=== PATIENT | female | born 1930 | race Caucasian/White ===

== ENCOUNTER 2016-12-09 07:36 | Inpatient (IN) | payer BC, OTHER ==
[~2016-12-09] VITALS: Ht 157.5 cm; Wt 55.5 kg
[~2016-12-09 07:36] MED LIST: ALBU1AER9 INH; ASPI81TA28 PO; CHOL100010 PO; MELA1TAB5 PO
[2016-12-09] MEDS ORDERED: ALBUT/IPRATROP 3MG/0.5MG NEB 3 ML VIAL INH ONE (08:00)
[2016-12-09 08:04] LABS: BASO % 0.5 %; BASO ABS # 0.05 K/uL (0-0.2); COMPLETE YES; EOS % 0.4 %; HEMATOCRIT 43.1 % (37-47); IG% 0.4 %; LYMPH % 17.5 %; LYMPH ABS # 1.61 K/uL (1.2-3.4); MEAN CELL VOLUME 83.7 fL (80-100); MEAN CORPUSCULAR HEMOGLOBIN 28.7 pg (25-34); MEAN CORPUSCULAR HGB CONC 34.3 g/dl (32-36); MEAN PLATELET VOLUME 9.5 fL (7.4-10.4); MONO % 12.5 %; NEUT % 68.7 %; PLATELET COUNT 443 K/uL (130-400); RED BLOOD COUNT 5.15 M/uL (4.2-5.4); WHITE BLOOD COUNT 9.19 K/uL (4.8-10.8)
[2016-12-09 08:12] VITALS: PULSE 93; O2SAT 94
[2016-12-09 08:25] LABS: ALT/SGPT 11 U/L (12-78); BLOOD UREA NITROGEN 6 mg/dl (7-18); BUN/CREATININE RATIO 13.2 (10-20); CALCIUM 9.6 mg/dl (8.5-10.1); CARBON DIOXIDE 29 mmol/L (21-32); CHLORIDE 93 mmol/L (98-107); CREATININE 0.44 mg/dl (0.60-1.20); GLUCOSE 102 mg/dl (70-99); POTASSIUM 4.3 mmol/L (3.5-5.1); SODIUM 131 mmol/L (136-145)
--- NOTE | 2016-12-09 08:25 | DIAGNOSTIC IMAGING REPORT ---
CHEST ONE VIEW PORTABLE CLINICAL HISTORY: Shortness of breath. Flulike symptoms. COMPARISON STUDY: 10/19/2016 FINDINGS: The heart is normal in size. There is evidence of pulmonary emphysema. There is increased density in the right suprahilar region. This may relate to overlying instrumentation. A follow-up PA and lateral study is recommended. There is mild elevation interstitium. There are no pleural effusions.[ IMPRESSION: 1. Increased density in the right suprahilar region, possibly artifactual. A repeat PA and lateral study is recommended 2. Mild elevation of the interstitium. No evidence of lobar consolidation. Electronically signed by: Nain Del Valle M.D. 12/09/2016 8:23 AM Dictated Date/Time: 12/09/2016 8:21 AM
[2016-12-09 08:30] LABS: ALB/GLOB RATIO 0.8 (0.9-2); ALKALINE PHOSPHATASE 93 U/L (45-117); AST/SGOT 15 U/L (15-37); CKMB/CK RATIO 4.8 (0-3.0)
[2016-12-09] MEDS ORDERED: METHYLPREDNISOLONE 125 MG VIAL IV STA (08:35)
--- NOTE | 2016-12-09 09:15 | DIAGNOSTIC IMAGING REPORT ---
TWO VIEW CHEST CLINICAL HISTORY: Dyspnea. FINDINGS: PA and lateral chest radiographs are compared to study performed earlier the same day 12/09/2016 and correlated with chest CT dated 10/22/2016. The heart is top normal for projection and there is atherosclerotic calcification of the thoracic aorta. The pulmonary vasculature is noncongested. Chronic interstitial thickening is similar to previous. No airspace consolidation, pleural effusion, or pneumothorax is seen. The skeletal structures are osteopenic. Advanced degenerative change and scoliosis are noted in the thoracic spine. Arthritic changes are seen in the shoulders. Calcified joint bodies are noted on the left. IMPRESSION: No acute cardiopulmonary abnormality is seen. The right suprahilar density questioned on today's earlier examination is no longer identified and was likely artifactual. Electronically signed by: Cordell Sofia M.D. 12/09/2016 9:13 AM Dictated Date/Time: 12/09/2016 9:10 AM
[2016-12-09 09:52] LABS: INFLUENZA A PCR Neg for Influ A (NEG); INFLUENZA B PCR Neg for Influ B (NEG)
--- NOTE | 2016-12-09 11:01 | EMERGENCY ROOM VISIT NOTE ---
History Report prepared by Yevgeniy: Yoli Quach Under the Supervision of: Dr. Matheus Hung M.D. First contact with patient: 07:42 Chief Complaint: SHORTNESS OF BREATH Stated Complaint: SHORTNESS OF BREATH/ FLU LIKE SX History of Present Illness The patient is an 86 year old female who presents to the Emergency Room with complaints of intermittent shortness of breath since yesterday. Currently, while resting, the patient is in minimal discomfort, but her symptoms worsen with attempts of exertion. Patient notes that she has had mild flu like symptoms such as a nonproductive cough and rhinorrhea over the past few days, but she did not develop the shortness of breath with exertion until yesterday. When developing the shortness of breath, patient denies experiencing chest pain , and she has not noticed any increased swelling to her extremities. She does have a history of asthma but she has not yet attempted to use her inhalers at home. The patient also notes about 4-5 movements of diarrhea within the past day as well, but she denies abdominal pain, nausea or vomiting, and she has not recently been on any antibiotics. She also denies fevers, chills, sore throat, urinary symptoms or other acute symptoms. Source of History: patient, family Onset: yesterday Position: chest Symptom Intensity: minimal Quality: other (shortness of breath) Timing: intermittent Modifying Factors (Worsening): exertion Modifying Factors (Relieving): rest Associated Symptoms: + cough, + diarrhea, No abdominal pain, No chest pain, No chills, No fevers, No nausea, No urinary symptoms, No vomiting Note: Patient denies swelling to her legs. Review of Systems See HPI for pertinent positives & negatives. A total of 10 systems reviewed and were otherwise negative. Past Medical & Surgical Medical Problems: (1) Asthma, Unspecified (2) Bronchitis (3) Pneumonia Family History No significant family history Social History Smoking Status: Never Smoker Alcohol Use: none Drug Use: none Housing Status: lives alone Occupation Status: retired Current/Historical Medications Scheduled Aspirin (Aspirin Ec), 81 MG PO DAILY Cholecalciferol (Vitamin D), 1,000 INTER.UNIT PO QAM Melatonin (Kp Melatonin), 3 MG PO HS Scheduled PRN Albuterol (Proair Hfa), 2 PUFFS INH Q4-6H PRN for SOB/Wheezing Allergies Coded Allergies: Trazodone (Verified Adverse Reaction, Intermediate, INTOLERANT, 12/09/16) Physical Exam Vital Signs Date Time Temp Pulse Resp B/P Pulse Ox O2 Delivery O2 Flow Rate FiO2 12/09/16 10:44 108 12/09/16 10:40 96 Nasal Cannula 3.0 12/09/16 10:39 104 22 128/68 96 Nasal Cannula 3.0 12/09/16 09:23 101 24 140/80 100 Nebulizer 12/09/16 08:38 90 24 137/77 95 Nebulizer 12/09/16 08:17 87 26 175/67 100 Nebulizer 12/09/16 08:12 93 32 94 Room Air 12/09/16 07:57 95 Room Air 12/09/16 07:54 37.1 94 28 160/81 95 Room Air 12/09/16 07:54 95 Room Air 12/09/16 07:45 92 12/09/16 07:42 95 Room Air Physical Exam GENERAL: Patient appears to be short of breath. HEAD: Normocephalic atraumatic EYES: Ocular movements intact pupils equal and react to light OROPHARYNX mucous membranes are moist no exudates present no erythema or edema present NECK: Supple no nuchal rigidity CHEST: Good equal expansion LUNGS: Distant lung sounds. CARDIAC: Normal S1 and S2 ABDOMEN: Soft nontender no guarding BACK: No CVA tenderness EXTREMITIES: No pain upon palpation normal muscle strength in all groups no clubbing cyanosis or edema NEURO: Patient is following commands is answering questions appropriately. Alert and oriented x3 Cranial Nerves 2-12 grossly intact Medical Decision & Procedures ER Provider Diagnostic Interpretation: X-ray results as stated below per interpretation by me and the radiologist: CHEST ONE VIEW PORTABLE CLINICAL HISTORY: Shortness of breath. Flulike symptoms. COMPARISON STUDY: 10/19/2016 FINDINGS: The heart is normal in size. There is evidence of pulmonary emphysema. There is increased density in the right suprahilar region. This may relate to overlying instrumentation. A follow-up PA and lateral study is recommended. There is mild elevation interstitium. There are no pleural effusions.[ IMPRESSION: 1. Increased density in the right suprahilar region, possibly artifactual. A repeat PA and lateral study is recommended 2. Mild elevation of the interstitium. No evidence of lobar consolidation. Electronically signed by: Nain Del Valle M.D. 12/09/2016 8:23 AM Dictated Date/Time: 12/09/2016 8:21 AM TWO VIEW CHEST CLINICAL HISTORY: Dyspnea. FINDINGS: PA and lateral chest radiographs are compared to study performed earlier the same day 12/09/2016 and correlated with chest CT dated 10/22/2016. The heart is top normal for projection and there is atherosclerotic calcification of the thoracic aorta. The pulmonary vasculature is noncongested. Chronic interstitial thickening is similar to previous. No airspace consolidation, pleural effusion, or pneumothorax is seen. The skeletal structures are osteopenic. Advanced degenerative change and scoliosis are noted in the thoracic spine. Arthritic changes are seen in the shoulders. Calcified joint bodies are noted on the left. IMPRESSION: No acute cardiopulmonary abnormality is seen. The right suprahilar density questioned on today's earlier examination is no longer identified and was likely artifactual. Electronically signed by: Cordell Soifa M.D. 12/09/2016 9:13 AM Dictated Date/Time: 12/09/2016 9:10 AM Laboratory Results 12/09/16 07:50 Red Blood Count 5.15, Mean Corpuscular Volume 83.7, Mean Corpuscular Hemoglobin 28.7, Mean Corpuscular Hemoglobin Concent 34.3, Mean Platelet Volume 9.5, Neutrophils (%) (Auto) 68.7, Lymphocytes (%) (Auto) 17.5, Monocytes (%) (Auto) 12.5, Eosinophils (%) (Auto) 0.4, Basophils (%) (Auto) 0.5, Neutrophils # (Auto ) 6.30, Lymphocytes # (Auto) 1.61, Monocytes # (Auto) 1.15, Eosinophils # (Auto ) 0.04, Basophils # (Auto) 0.05 12/09/16 07:50 Test 12/09/16 07:50 12/09/16 07:58 White Blood Count 9.19 K/uL (4.8-10.8) Red Blood Count 5.15 M/uL (4.2-5.4) Hemoglobin 14.8 g/dL (12.0-16.0) Hematocrit 43.1 % (37-47) Mean Corpuscular Volume 83.7 fL (80-100) Mean Corpuscular Hemoglobin 28.7 pg (25-34) Mean Corpuscular Hemoglobin Concent 34.3 g/dl (32-36) Platelet Count 443 K/uL (130-400) Mean Platelet Volume 9.5 fL (7.4-10.4) Neutrophils (%) (Auto) 68.7 % Lymphocytes (%) (Auto) 17.5 % Monocytes (%) (Auto) 12.5 % Eosinophils (%) (Auto) 0.4 % Basophils (%) (Auto) 0.5 % Neutrophils # (Auto) 6.30 K/uL (1.4-6.5) Lymphocytes # (Auto) 1.61 K/uL (1.2-3.4) Monocytes # (Auto) 1.15 K/uL (0.11-0.59) Eosinophils # (Auto) 0.04 K/uL (0-0.5) Basophils # (Auto) 0.05 K/uL (0-0.2) RDW Standard Deviation 40.8 fL (36.4-46.3) RDW Coefficient of Variation 13.4 % (11.5-14.5) Immature Granulocyte % (Auto) 0.4 % Immature Granulocyte # (Auto) 0.04 K/uL (0.00-0.02) Anion Gap 9.0 mmol/L (3-11) Est Creatinine Clear Calc Drug Dose 71.3 ml/min Estimated GFR () 105.2 Estimated GFR (Non- 90.8 BUN/Creatinine Ratio 13.2 (10-20) Calcium Level 9.6 mg/dl (8.5-10.1) Total Bilirubin 0.3 mg/dl (0.2-1) Aspartate Amino Transf (AST/SGOT) 15 U/L (15-37) Alanine Aminotransferase (ALT/SGPT) 11 U/L (12-78) Alkaline Phosphatase 93 U/L (45-117) Total Creatine Kinase 27 U/L (26-192) Creatine Kinase MB 1.3 ng/ml (0.5-3.6) Creatine Kinase MB Ratio 4.8 (0-3.0) Troponin I < 0.015 ng/ml (0-0.045) Pro-B-Type Natriuretic Peptide 275 pg/ml (0-1800) Total Protein 6.8 gm/dl (6.4-8.2) Albumin 3.1 gm/dl (3.4-5.0) Globulin 3.7 gm/dl (2.5-4.0) Albumin/Globulin Ratio 0.8 (0.9-2) Influenza Type A (RT-PCR) Neg for Influ A (NEG) Influenza Type B (RT-PCR) Neg for Influ B (NEG) Labs reviewed by ED physician. Medications Administered Medications (Trade) Dose Ordered Sig/Karla Route Start Time Stop Time Status Last Admin Dose Admin Albuterol/ Ipratropium (Duoneb) 12 ml ONE ONCE INH 12/09/16 08:00 12/09/16 08:01 DC 12/09/16 08:12 12 ML Methylprednisolone Sodium Succinate (Solu-Medrol IV) 60 mg NOW STAT IV 12/09/16 08:35 12/09/16 08:37 DC 12/09/16 08:52 60 MG ECG Indication: SOB/dyspnea Rate (beats per minute): 93 Rhythm: normal sinus Findings: no acute ischemic change, no ectopy ED Course 0740: Past medical records reviewed. The patient was evaluated in room B2. A complete history and physical examination was performed. 0800: DuoNeb 12 ml INH was ordered. 0835: Solu-Medrol 60 mg IV was ordered. 0950: I reevaluate the patient at this time and updated her on the results of her radiology reports and lab tests. The hospitalist will be contacted. 1010: After discussion with Dr. Bee, the patient will continue to be evaluated by the [facility] hospitalist for further management. She verbalized her understanding and agreement with this. Medical Decision Etiologies such as infections, reactive airway disease, pneumonia, pneumothorax , COPD, CHF, cardiac ischemia, pulmonary embolism, musculoskeletal, gastrointestinal, as well as others were entertained. This is an 86-year-old female who presents emergency department complaining of shortness of breath. The patient's respiratory rate is approximately 30. She does have some wheezing present for this reason she was given an hour-long breathing treatment along with Solu-Medrol. Repeat examination revealed that the patient was hypoxic running 87% on room air. She does not have any evidence of pneumonia and does not have an elevation in her white blood count. Her influenza swab is negative. I believe that the patient should be admitted to the hospital and discussed the case with the hospitalist. Patient family were in agreement with the treatment plan. Consults Time Called: [phone] Consulting Physician: Dr. Bee - [facility] Returned Call: [phone] Discussed the patient's case. She will continue to be evaluated by the [facility] hospitalist for further management. Impression Primary Impression: Hypoxia Additional Impression: URI (upper respiratory infection) Scribe Attestation The scribe's documentation has been prepared under my direction and personally reviewed by me in its entirety. I confirm that the note above accurately reflects all work, treatment, procedures, and medical decision making performed by me. Departure Information Dispostion Being Evaluated By Hospitalist ([facility]) Referrals Chin Wells M.D. (PCP) Problem Qualifiers
[2016-12-09] MEDS ORDERED: ONDANSETRON INJ 2 MG/ML 2 ML VIAL IV PRN (11:30)
[2016-12-09] MEDS ORDERED: POLYETHYLENE (MIRALAX) 17 GM PACK PO PRN (11:30)
[2016-12-09] MEDS ORDERED: ACETAMINOPHEN 325 MG TAB PO PRN (11:30)
[2016-12-09] MEDS ORDERED: ALUMINUM/MAGNESIUM/SIMETH (MAALOX MAX) 30 ML UDC PO PRN (11:30)
[2016-12-09 13:30] VITALS: BP 104/61; PULSE 102; TEMP 36.5; O2SAT 95
[2016-12-09 14:38] VITALS: Ht 157.5 cm; Wt 55.5 kg
[2016-12-09 14:46] LABS: PARTIAL THROMBOPLASTIN RATIO 1.1; PROTHROMBIN TIME (PATIENT) 10.5 SECONDS (9.0-12.0)
[2016-12-09 15:33] VITALS: BP 124/68; PULSE 106; TEMP 36.6; O2SAT 95
[2016-12-09] MEDS: ALBUT/IPRATROP 3MG/0.5MG NEB 3 ML VIAL INH SCH ×2 (15:59→19:30)
[2016-12-09 16:00] VITALS: PULSE 106; O2SAT 97; O2SAT 98
[2016-12-09] MEDS: METHYLPREDNISOLONE IV 20 MG in SYRINGE 0 ML IV SCH ×2 (16:11→23:52)
[2016-12-09 19:30] VITALS: PULSE 100; O2SAT 98
[2016-12-09] MEDS: HEPARIN SOD 5000 UNIT/0.5 ML CARP SQ SCH (21:40)
[2016-12-09 22:57] VITALS: BP 126/62; PULSE 105; TEMP 36.7; O2SAT 91
[2016-12-10] VITALS (7 sets, daily range): BP systolic 133–155; BP diastolic 72–73; PULSE 82–105; TEMP 36.7–36.8; O2SAT 92–98
[2016-12-10] MEDS: ZOLPIDEM TARTRATE 5 MG TAB PO PRN (00:40)
--- NOTE | 2016-12-10 02:36 | History and Physical ---
History & Physical Date & Time of Service: Dec 09, 2016 at 16:33 Chief Complaint: Dyspnea, Hypoxia Primary Care Physician: Chin Wells M.D. History of Present Illness Source: patient, family This is a 86 yo F non-smoker w/ hx of Asthma on prn Albuterol inhaler at home p/ w with 2 day Hx of progressive SOB. SOB occurred from rest ans was particularly worse at night. No alleviating factors. Patient did not attempt to use inhaler. Pt reports difficulty sleeping do to symptoms and decided to contact her son this morning around 7am to take her to the hospital. Additionally, patient reports 5 day hx of cold symptoms including rhinnoreah, nasal congestion addition to fatigue. Pt also reports soft stool on Dec.07 and which has since resolved. She denies fevers, chills, bodyache,reports non- productive cough, but states this is chronic. Pt presented previous for SOB to the ED on 10/21. CXR at the time was consistent with chronic emphysematous change and a CT showing Bronchiectasis with parenchymal lung scarring. Patient's Last Echo was in May 2015 showing EF 50-55% according ot note from her PCP. Dr. Mcclain. In the current ED stay, per ED note, the patient was wheezing and experiences a drop in her initially normal O2 saturation to 87%. Pt was given duonebs, IV solumedrol. repeat CXR showed no acute pulmonary abnormalities. Pt placed on NC , 3L. White Ct, H/H was normal, Flub swab was neg. SOB improved while in ED. Past Medical/Surgical History Medical Problems: (1) Asthma, Unspecified Status: Chronic (2) Bronchitis Status: Chronic (3) Pneumonia Status: Resolved Family History No significant family history Social History Smoking Status: Never Smoker Drug Use: none Housing status: lives alone Occupational Status: retired Immunizations History of Influenza Vaccine: Yes Influenza Vaccine Date: Sep 29, 2010 History of Tetanus Vaccine?: Yes History of Pneumococcal: Yes History of Hepatitis B Vaccine: No Multi-Drug Resistant Organisms History of MDRO: No Allergies Coded Allergies: Trazodone (Verified Adverse Reaction, Intermediate, INTOLERANT, 12/09/16) Home Medications Scheduled Aspirin (Aspirin Ec), 81 MG PO DAILY Cholecalciferol (Vitamin D), 1,000 INTER.UNIT PO QAM Melatonin (Kp Melatonin), 3 MG PO HS Scheduled PRN Albuterol (Proair Hfa), 2 PUFFS INH Q4-6H PRN for SOB/Wheezing Review of Systems Constitutional: + fatigue, No chills, No fever Respiratory: + cough (non-productive), No shortness of breath, No sputum Cardiovascular: No chest pain, No palpitations Abdomen: No nausea, No pain, No vomiting Integumentary: No itch, No rash Allergic / Immunologic: + problem reported (asthma) Physical Exam Vital Signs Date Time Temp Pulse Resp B/P Pulse Ox O2 Delivery O2 Flow Rate FiO2 12/09/16 15:33 36.6 106 16 124/68 95 Room Air 12/09/16 14:38 Nasal Cannula 2.0 12/09/16 13:30 36.5 102 24 104/61 95 Nasal Cannula 2.0 12/09/16 13:29 110 31 154/93 96 12/09/16 12:48 99 12/09/16 12:11 104 29 148/70 99 Nasal Cannula 3.0 12/09/16 10:44 108 12/09/16 10:40 96 Nasal Cannula 3.0 12/09/16 10:39 104 22 128/68 96 Nasal Cannula 3.0 12/09/16 09:23 101 24 140/80 100 Nebulizer 12/09/16 08:38 90 24 137/77 95 Nebulizer 12/09/16 08:17 87 26 175/67 100 Nebulizer 12/09/16 08:12 93 32 94 Room Air 12/09/16 07:57 95 Room Air 12/09/16 07:54 37.1 94 28 160/81 95 Room Air 12/09/16 07:54 95 Room Air 12/09/16 07:45 92 12/09/16 07:42 95 Room Air General Appearance: WD/WN, no apparent distress Head: normocephalic, atraumatic Eyes: normal inspection, PERRL, EOMI Neck: supple, no adenopathy Respiratory/Chest: lungs clear, normal breath sounds, no respiratory distress Cardiovascular: regular rate, rhythm, no JVD, no murmur Abdomen/GI: normal bowel sounds, non tender, soft, no organomegaly Extremities/Musculoskelatal: no calf tenderness, no pedal edema Neurologic/Psych: alert, normal mood/affect Skin: normal color, warm/dry Diagnostics Laboratory Results Results Past 24 Hours Test 12/09/16 07:50 12/09/16 07:58 12/09/16 08:50 Range/Units White Blood Count 9.19 4.8-10.8 K/uL Red Blood Count 5.15 4.2-5.4 M/uL Hemoglobin 14.8 12.0-16.0 g/dL Hematocrit 43.1 37-47 % Mean Corpuscular Volume 83.7 80-100 fL Mean Corpuscular Hemoglobin 28.7 25-34 pg Mean Corpuscular Hemoglobin Concent 34.3 32-36 g/dl Platelet Count 443 130-400 K/uL Mean Platelet Volume 9.5 7.4-10.4 fL Neutrophils (%) (Auto) 68.7 % Lymphocytes (%) (Auto) 17.5 % Monocytes (%) (Auto) 12.5 % Eosinophils (%) (Auto) 0.4 % Basophils (%) (Auto) 0.5 % Neutrophils # (Auto) 6.30 1.4-6.5 K/uL Lymphocytes # (Auto) 1.61 1.2-3.4 K/uL Monocytes # (Auto) 1.15 0.11-0.59 K/uL Eosinophils # (Auto) 0.04 0-0.5 K/uL Basophils # (Auto) 0.05 0-0.2 K/uL RDW Standard Deviation 40.8 36.4-46.3 fL RDW Coefficient of Variation 13.4 11.5-14.5 % Immature Granulocyte % (Auto) 0.4 % Immature Granulocyte # (Auto) 0.04 0.00-0.02 K/uL Sodium Level 131 136-145 mmol/L Potassium Level 4.3 3.5-5.1 mmol/L Chloride Level 93 98-107 mmol/L Carbon Dioxide Level 29 21-32 mmol/L Anion Gap 9.0 3-11 mmol/L Blood Urea Nitrogen 6 7-18 mg/dl Creatinine 0.44 0.60-1.20 mg/dl Est Creatinine Clear Calc Drug Dose 71.3 ml/min Estimated GFR () 105.2 Estimated GFR (Non- 90.8 BUN/Creatinine Ratio 13.2 10-20 Random Glucose 102 70-99 mg/dl Calcium Level 9.6 8.5-10.1 mg/dl Total Bilirubin 0.3 0.2-1 mg/dl Aspartate Amino Transf (AST/SGOT) 15 15-37 U/L Alanine Aminotransferase (ALT/SGPT) 11 12-78 U/L Alkaline Phosphatase 93 45-117 U/L Total Creatine Kinase 27 26-192 U/L Creatine Kinase MB 1.3 0.5-3.6 ng/ml Creatine Kinase MB Ratio 4.8 0-3.0 Troponin I < 0.015 0-0.045 ng/ml Pro-B-Type Natriuretic Peptide 275 0-1800 pg/ml Total Protein 6.8 6.4-8.2 gm/dl Albumin 3.1 3.4-5.0 gm/dl Globulin 3.7 2.5-4.0 gm/dl Albumin/Globulin Ratio 0.8 0.9-2 Influenza Type A (RT-PCR) Neg for Influ A NEG Influenza Type B (RT-PCR) Neg for Influ B NEG Prothrombin Time 10.5 9.0-12.0 SECONDS Prothromb Time International Ratio 1.0 0.9-1.1 Activated Partial Thromboplast Time 28.7 21.0-31.0 SECONDS Partial Thromboplastin Ratio 1.1 Diagnostic Radiology CHEST ONE VIEW PORTABLE CLINICAL HISTORY: Shortness of breath. Flulike symptoms. COMPARISON STUDY: 10/19/2016 FINDINGS: The heart is normal in size. There is evidence of pulmonary emphysema. There is increased density in the right suprahilar region. This may relate to overlying instrumentation. A follow-up PA and lateral study is recommended. There is mild elevation interstitium. There are no pleural effusions.[ IMPRESSION: 1. Increased density in the right suprahilar region, possibly artifactual. A repeat PA and lateral study is recommended 2. Mild elevation of the interstitium. No evidence of lobar consolidation TWO VIEW CHEST CLINICAL HISTORY: Dyspnea. FINDINGS: PA and lateral chest radiographs are compared to study performed earlier the same day 12/09/2016 and correlated with chest CT dated 10/22/2016. The heart is top normal for projection and there is atherosclerotic calcification of the thoracic aorta. The pulmonary vasculature is noncongested. Chronic interstitial thickening is similar to previous. No airspace consolidation, pleural effusion, or pneumothorax is seen. The skeletal structures are osteopenic. Advanced degenerative change and scoliosis are noted in the thoracic spine. Arthritic changes are seen in the shoulders. Calcified joint bodies are noted on the left. IMPRESSION: No acute cardiopulmonary abnormality is seen. The right suprahilar density questioned on today's earlier examination is no longer identified and was likely artifactual. EKG Normal Sinus Rhythm, L. Ant. Fascicular block Impression Assessment and Plan 86 yo F w/ Hx of Asthma p/w hypoxic resp failure Acute Hypoxic Resp Failure: - likely due to Asthma exacerbation possibly secondary to aspiration/ bronchiectasis exacerbation. -CHF origin unlikely considering previous Echo May 2015, showing normal systolic fxn, EF 50-55% -no evidence of aspiration pneumonitis on CXR -O2 saturation improved with O2 -Start IV Solu-medrol 20 mg q8 -Duonebs PRN -Aspiration precautions, Speech therapy Consulted for swallowing evaluation -consider adding abx. Hx of Atrial Flutter -EKG shows normal sinus rhythm DVT Prophylaxis: -Heparin 5000u q 8 -SCD's Hyponatremia: pt asymptomatic -131 -Continue to monitor -F/U repeat PRP Diet: Regular Diet Code Status: Full Resuscitation Level of Care Med/Surg Advanced Directives Existing Advance Directive: No Existing Living Will: No Existing Power of Ship Keeper: Yes Resuscitation Status FULL RESUSCITATION VTE Prophylaxis VTE Risk Assessment Done? Y/N: Yes Risk Level: Low Given or contraindicated: Unfractionated heparin SQ, SCD's Resident Tracking Resident Involvement: Resident Care Provided Care Provided: Adult Hospital Medicine Reviewed: Pt Seen/Exam by Me History 86 y/o F with h/o asthma here with shortness of breath for 2 days. Noted to be hypoxic in ED Constitutional: denies: fever Respiratory: positive: short of breath Cardiovascular: denies chest pain Gastrointestinal/Abdominal: negative: abdominal pain Genitourinary: negative dysuria Musculoskeletal: negative: back pain Neurological/Psych: negative: anxiety General Appearance: no apparent distress Respiratory: no respiratory distress, decreased breath sounds Cardiovascular: regular rate, rhythm Gastrointestinal: normal bowel sounds, non tender, soft Neurologic/Psychiatric: alert, oriented x 3 Skin Characteristics: warm/dry Assessment/Plan I have reviewed the medical record and performed a history and physical examination of this patient today. I have discussed the case with Dr. Azevedo. The above note reflects my findings, conclusions, and recommendations.
[2016-12-10 05:49] LABS: HEMATOCRIT 40.9 % (37-47); MEAN CELL VOLUME 83.5 fL (80-100); MEAN CORPUSCULAR HEMOGLOBIN 29.2 pg (25-34); MEAN PLATELET VOLUME 9.5 fL (7.4-10.4); PLATELET COUNT 446 K/uL (130-400); WHITE BLOOD COUNT 8.57 K/uL (4.8-10.8)
[2016-12-10] MEDS: HEPARIN SOD 5000 UNIT/0.5 ML CARP SQ SCH ×3 (06:00→20:33)
[2016-12-10 06:11] LABS: BUN/CREATININE RATIO 22.7 (10-20); CALCIUM 9.4 mg/dl (8.5-10.1); CREATININE 0.5 mg/dl (0.60-1.20); POTASSIUM 4.4 mmol/L (3.5-5.1)
[2016-12-10] MEDS: ALBUT/IPRATROP 3MG/0.5MG NEB 3 ML VIAL INH SCH ×4 (07:09→20:23)
[2016-12-10] MEDS: ASPIRIN 81 MG ECTAB PO SCH (08:38)
[2016-12-10] MEDS: CHOLECALCIFEROL 1000 INTER.UNIT TAB PO SCH (08:38)
[2016-12-10] MEDS: METHYLPREDNISOLONE IV 20 MG in SYRINGE 0 ML IV SCH ×3 (08:38→23:41)
[2016-12-10] MEDS ORDERED: NURSING DECISION MEDICATION ORDER SCH (09:00)
[2016-12-10] MEDS ORDERED: SODIUM CHLORIDE 0.65% NA SOLN 45 ML (OCEAN) PRN (09:45)
[2016-12-10] MEDS ORDERED: COUGH DROP (SUGAR FREE) LOZ 24 LOZ/1 BOX PO PRN (09:45)
--- NOTE | 2016-12-10 10:25 | Family Medicine Progress Note ---
Progress Note Date of Service Dec 10, 2016. Subjective Pt evaluation today including: conversation w/ patient, conversation w/ family , physical exam, chart review, lab review, review of studies, review of inpatient medication list Pain: denies pain PO Intake: adequate Voiding: no voiding problems Pt reports her SOB has significantly and she is at her baseline. Pt states she had difficulty sleeping last night, and got ambien which helped. She continues to report non-productive cough. denies CP. Pt concerned she cannot go home by herself immediately and was interested in speaking with case management about her options. Constitutional: No chills, No fever Respiratory: + cough (non-productive), No shortness of breath Cardiovascular: No chest pain, No palpitations Abdomen: No constipation, No diarrhea, No nausea, No pain, No vomiting Medications Current Inpatient Medications Medications (Trade) Dose Ordered Sig/Karla Route Start Time Stop Time Status Last Admin Dose Admin Heparin Sodium (Porcine) (Heparin Sq 5000 Unit/0.5ml) 5,000 unit Q8H SQ 12/09/16 22:00 01/08/17 21:59 Acetaminophen (Tylenol Tab) 650 mg Q4H PRN PO 12/09/16 11:30 01/08/17 11:29 12/09/16 16:11 650 MG Al Hydrox/Mg Hydrox/Simethicone (Maalox Max Susp) 15 ml Q4H PRN PO 12/09/16 11:30 01/08/17 11:29 Magnesium Hydroxide (Milk Of Magnesia Susp) 30 ml Q6H PRN PO 12/09/16 11:30 01/08/17 11:29 Polyethylene (Miralax Powder Packet) 17 gm DAILY PRN PO 12/09/16 11:30 01/08/17 11:29 Ondansetron HCl (Zofran Inj) 4 mg Q6H PRN IV 12/09/16 11:30 01/08/17 11:29 Aspirin (Ecotrin Tab) 81 mg DAILY PO 12/10/16 09:00 01/09/17 08:59 12/10/16 08:38 81 MG Cholecalciferol (Vitamin D Tab) 1,000 inter.unit QAM PO 12/10/16 09:00 01/09/17 08:59 12/10/16 08:38 1,000 INTER.UNIT Albuterol/ Ipratropium 3 ml 3 ml QIDR INH 12/09/16 16:00 01/08/17 15:59 12/10/16 07:09 3 ML Methylprednisolone Sodium Succinate/ Syringe (Solu-Medrol IV/ Syringe) 0.32 ml @ 1.5 mls/min Q8H IV 12/09/16 16:00 01/08/17 15:59 12/10/16 08:38 1.5 MLS/MIN Miscellaneous Information (Order Awaiting Action) 1 ea QS N/A 12/10/16 00:00 01/09/17 00:00 Zolpidem Tartrate (Ambien Tab) 5 mg HS PRN PO 12/10/16 00:15 01/09/17 00:14 12/10/16 00:40 5 MG Benzonatate (Tessalon Perles Cap) 100 mg TID PRN PO 12/10/16 09:00 01/09/17 08:59 Menthol (Nice Teresa) 1 teresa PRN PRN PO 12/10/16 09:45 01/09/17 09:44 Sodium Chloride ([place] Nasal [place]) 1 sprays PRN PRN NA 12/10/16 09:45 01/09/17 09:44 Objective Vital Signs Date Time Temp Pulse Resp B/P Pulse Ox O2 Delivery O2 Flow Rate FiO2 12/10/16 08:00 Room Air 12/10/16 07:09 105 20 98 Nasal Cannula 2.0 12/10/16 06:53 36.8 98 20 155/73 92 Room Air 12/10/16 00:00 Room Air 12/09/16 22:57 36.7 105 19 126/62 91 Room Air 12/09/16 19:30 100 20 98 Nasal Cannula 2.0 12/09/16 16:00 106 24 98 Nasal Cannula 2.0 12/09/16 16:00 97 Nasal Cannula 2.0 12/09/16 15:33 36.6 106 16 124/68 95 Room Air 12/09/16 14:38 Nasal Cannula 2.0 12/09/16 13:30 36.5 102 24 104/61 95 Nasal Cannula 2.0 12/09/16 13:29 110 31 154/93 96 12/09/16 12:48 99 12/09/16 12:11 104 29 148/70 99 Nasal Cannula 3.0 12/09/16 10:44 108 12/09/16 10:40 96 Nasal Cannula 3.0 12/09/16 10:39 104 22 128/68 96 Nasal Cannula 3.0 Physical Exam General Appearance: WD/WN, no apparent distress Eyes: normal inspection, PERRL, EOMI Neck: supple, trachea midline Respiratory/Chest: chest non-tender, lungs clear, normal breath sounds, no respiratory distress Cardiovascular: regular rate, rhythm, no murmur Abdomen: normal bowel sounds, non tender, soft Extremities: no pedal edema, no calf tenderness Neurologic/Psychiatric: alert, normal mood/affect Skin: normal color, warm/dry Laboratory Results Results Past 24 Hours Test 12/10/16 05:05 Range/Units White Blood Count 8.57 4.8-10.8 K/uL Red Blood Count 4.90 4.2-5.4 M/uL Hemoglobin 14.3 12.0-16.0 g/dL Hematocrit 40.9 37-47 % Mean Corpuscular Volume 83.5 80-100 fL Mean Corpuscular Hemoglobin 29.2 25-34 pg Mean Corpuscular Hemoglobin Concent 35.0 32-36 g/dl RDW Standard Deviation 41.1 36.4-46.3 fL RDW Coefficient of Variation 13.5 11.5-14.5 % Platelet Count 446 130-400 K/uL Mean Platelet Volume 9.5 7.4-10.4 fL Sodium Level 133 136-145 mmol/L Potassium Level 4.4 3.5-5.1 mmol/L Chloride Level 95 98-107 mmol/L Carbon Dioxide Level 30 21-32 mmol/L Anion Gap 8.0 3-11 mmol/L Blood Urea Nitrogen 11 7-18 mg/dl Creatinine 0.50 0.60-1.20 mg/dl Est Creatinine Clear Calc Drug Dose 62.7 ml/min Estimated GFR () 100.9 Estimated GFR (Non- 87.0 BUN/Creatinine Ratio 22.7 10-20 Random Glucose 130 70-99 mg/dl Calcium Level 9.4 8.5-10.1 mg/dl Assessment and Plan 86 yo F w/ Hx of Asthma p/w hypoxic resp failure Acute Hypoxic Resp Failure: - likely due to Asthma exacerbation/bronchiectasis exacerbation possibly secondary to aspiration. -CHF origin unlikely considering previous Echo May 2015, showing normal systolic fxn, EF 50-55%. Normal BNP -no evidence of aspiration pneumonitis on CXR -O2 saturation improved with O2 -Continue IV Solu-Medrol 20 mg q8 -Duonebs PRN -Aspiration precautions, Speech therapy Consulted for swallowing evaluation - Augmentin added. Hx of Atrial Flutter -resolved, EKG shows normal sinus rhythm DVT Prophylaxis: -Heparin 5000u q 8 (patient refused) -SCD's Hyponatremia: mild, pt asymptomatic -131--> 133 -Continue to monitor -F/U repeat PRP Cough -chronic, non-productive -ordered Tessalon pearls Diet: Regular Diet Code Status: Full Resuscitation Disposition: currently lives at home with "[employer]" 3x/wk. She does not feel she can immediately be discharged home on her own and would like to know the options she has post-discharge. Case management has been alerted to speak with her. PT/OT eval and treat Continued [facility] stay due to: home environment unsafe for pt Discharge planning: uncertain Resident Tracking Resident Involvement: Resident Care Provided Care Provided: Adult Hospital Medicine Reviewed: Pt Seen/Exam by Me Constitutional: denies: fever Respiratory: positive: short of breath (much better) Cardiovascular: denies chest pain Gastrointestinal/Abdominal: negative: abdominal pain General Appearance: no apparent distress Respiratory: no respiratory distress, decreased breath sounds Cardiovascular: regular rate, rhythm Neurologic/Psychiatric: alert, oriented x 3 Assessment/Plan I have reviewed the medical record and performed a history and physical examination of this patient today. I have discussed the case with Dr. Azevedo. The above note reflects my findings, conclusions, and recommendations. Anticipate d/c home in am
[2016-12-10] MEDS ORDERED: AMOXICILLIN/CLAVULANATE TAB 875 MG TAB PO ONE (11:30)
[2016-12-10] MEDS: BENZONATATE 100MG CAP PO PRN ×2 (11:48→20:33)
[2016-12-10] MEDS: AMOXICILLIN/CLAVULANATE TAB 875 MG TAB PO SCH (17:15)
[2016-12-11] VITALS (9 sets, daily range): BP systolic 130–145; BP diastolic 66–75; PULSE 62–94; TEMP 36.6–36.9; O2SAT 93–97
[2016-12-11 03:48] LABS: URINE APPEARANCE CLEAR (CLEAR); URINE BILIRUBIN NEG (NEG); URINE COLOR YELLOW; URINE NITRITE NEG (NEG); URINE PH 6.5 (4.5-7.5); URINE SPECIFIC GRAVITY 1.019 (1.000-1.030); UROBILINOGEN NEG (NEG)
[2016-12-11 03:49] LABS: MANUAL MICROSCOPIC REQUIRED? NO; REVIEW REQ? NO
[2016-12-11] MEDS: HEPARIN SOD 5000 UNIT/0.5 ML CARP SQ SCH ×3 (06:00→20:15)
[2016-12-11] MEDS: ALBUT/IPRATROP 3MG/0.5MG NEB 3 ML VIAL INH SCH ×4 (07:04→19:25)
[2016-12-11 07:24] LABS: HEMATOCRIT 39.5 % (37-47); MEAN CELL VOLUME 83.9 fL (80-100); MEAN CORPUSCULAR HGB CONC 33.4 g/dl (32-36); MEAN PLATELET VOLUME 9.5 fL (7.4-10.4); PLATELET COUNT 468 K/uL (130-400); RED BLOOD COUNT 4.71 M/uL (4.2-5.4); WHITE BLOOD COUNT 9.84 K/uL (4.8-10.8)
[2016-12-11 07:53] LABS: BUN/CREATININE RATIO 39.8 (10-20); CALCIUM 9.4 mg/dl (8.5-10.1); CREATININE 0.45 mg/dl (0.60-1.20); POTASSIUM 4.5 mmol/L (3.5-5.1)
[2016-12-11] MEDS: ASPIRIN 81 MG ECTAB PO SCH (09:13)
[2016-12-11] MEDS: AMOXICILLIN/CLAVULANATE TAB 875 MG TAB PO SCH ×2 (09:13→17:16)
[2016-12-11] MEDS: CHOLECALCIFEROL 1000 INTER.UNIT TAB PO SCH (09:14)
[2016-12-11] MEDS: METHYLPREDNISOLONE IV 20 MG in SYRINGE 0 ML IV SCH ×2 (09:43→15:30)
--- NOTE | 2016-12-11 17:26 | Family Medicine Progress Note ---
Progress Note Date of Service Dec 11, 2016. Subjective Pt evaluation today including: conversation w/ patient, conversation w/ family , physical exam, chart review, lab review, review of studies, review of inpatient medication list Pain: denies pain PO Intake: adequate Voiding: no voiding problems No acute events overnight. Pt continues to report chronci dry cough, SOB at baseline. no further diarrhea. denies CP, N/V, abdominal pain Medications Current Inpatient Medications Medications (Trade) Dose Ordered Sig/Karla Route Start Time Stop Time Status Last Admin Dose Admin Heparin Sodium (Porcine) (Heparin Sq 5000 Unit/0.5ml) 5,000 unit Q8H SQ 12/09/16 22:00 01/08/17 21:59 Acetaminophen (Tylenol Tab) 650 mg Q4H PRN PO 12/09/16 11:30 01/08/17 11:29 12/09/16 16:11 650 MG Al Hydrox/Mg Hydrox/Simethicone (Maalox Max Susp) 15 ml Q4H PRN PO 12/09/16 11:30 01/08/17 11:29 Magnesium Hydroxide (Milk Of Magnesia Susp) 30 ml Q6H PRN PO 12/09/16 11:30 01/08/17 11:29 Polyethylene (Miralax Powder Packet) 17 gm DAILY PRN PO 12/09/16 11:30 01/08/17 11:29 Ondansetron HCl (Zofran Inj) 4 mg Q6H PRN IV 12/09/16 11:30 01/08/17 11:29 Aspirin (Ecotrin Tab) 81 mg DAILY PO 12/10/16 09:00 01/09/17 08:59 12/11/16 09:13 81 MG Cholecalciferol (Vitamin D Tab) 1,000 inter.unit QAM PO 12/10/16 09:00 01/09/17 08:59 12/11/16 09:14 1,000 INTER.UNIT Albuterol/ Ipratropium 3 ml 3 ml QIDR INH 12/09/16 16:00 01/08/17 15:59 12/11/16 15:20 3 ML Methylprednisolone Sodium Succinate/ Syringe (Solu-Medrol IV/ Syringe) 0.32 ml @ 1.5 mls/min Q8H IV 12/09/16 16:00 01/08/17 15:59 12/11/16 15:30 1.5 MLS/MIN Miscellaneous Information (Order Awaiting Action) 1 ea QS N/A 12/10/16 00:00 01/09/17 00:00 Zolpidem Tartrate (Ambien Tab) 5 mg HS PRN PO 12/10/16 00:15 01/09/17 00:14 12/10/16 00:40 5 MG Benzonatate (Tessalon Perles Cap) 100 mg TID PRN PO 12/10/16 09:00 01/09/17 08:59 12/10/16 20:33 100 MG Menthol (Nice Teresa) 1 teresa PRN PRN PO 12/10/16 09:45 01/09/17 09:44 Sodium Chloride ([place] Nasal [place]) 1 sprays PRN PRN NA 12/10/16 09:45 01/09/17 09:44 Amoxicillin/ Clavulanate Potassium (Augmentin Tab) 875 mg BIDM PO 12/10/16 17:00 12/17/16 16:59 12/11/16 09:13 875 MG Objective Vital Signs Date Time Temp Pulse Resp B/P Pulse Ox O2 Delivery O2 Flow Rate FiO2 12/11/16 15:49 36.8 93 16 145/74 94 Room Air 12/11/16 15:25 Room Air 12/11/16 15:20 62 16 97 Room Air 12/11/16 14:01 94 12/11/16 11:14 74 20 94 Room Air 12/11/16 10:22 Room Air 12/11/16 07:46 36.8 90 18 144/69 93 Room Air 12/11/16 07:00 88 20 94 Room Air 12/11/16 00:18 36.9 94 16 131/75 93 Room Air 12/10/16 23:57 Room Air 12/10/16 19:50 98 20 94 Room Air Physical Exam General Appearance: WD/WN, no apparent distress Eyes: normal inspection, PERRL, EOMI Neck: supple Respiratory/Chest: lungs clear, normal breath sounds ( ), + crackles (R lower lung base) Cardiovascular: regular rate, rhythm, no murmur Abdomen: normal bowel sounds, soft Extremities: normal range of motion, no pedal edema, no calf tenderness Neurologic/Psychiatric: alert Skin: normal color, warm/dry Laboratory Results Results Past 24 Hours Test 12/11/16 03:30 12/11/16 06:37 Range/Units Urine Color YELLOW Urine Appearance CLEAR CLEAR Urine pH 6.5 4.5-7.5 Urine Specific [place] 1.019 1.000-1.030 Urine Protein NEG NEG Urine Glucose (UA) NEG NEG Urine Ketones NEG NEG Urine Occult Blood NEG NEG Urine Nitrite NEG NEG Urine Bilirubin NEG NEG Urine Urobilinogen NEG NEG Urine Leukocyte Esterase TRACE NEG Urine WBC (Auto) 1-5 0-5 /hpf Urine RBC (Auto) 0-4 0-4 /hpf Urine Hyaline Casts (Auto) 1-5 0-5 /lpf Urine Epithelial Cells (Auto) 10-20 0-5 /lpf Urine Bacteria (Auto) NEG NEG White Blood Count 9.84 4.8-10.8 K/uL Red Blood Count 4.71 4.2-5.4 M/uL Hemoglobin 13.2 12.0-16.0 g/dL Hematocrit 39.5 37-47 % Mean Corpuscular Volume 83.9 80-100 fL Mean Corpuscular Hemoglobin 28.0 25-34 pg Mean Corpuscular Hemoglobin Concent 33.4 32-36 g/dl RDW Standard Deviation 42.7 36.4-46.3 fL RDW Coefficient of Variation 13.8 11.5-14.5 % Platelet Count 468 130-400 K/uL Mean Platelet Volume 9.5 7.4-10.4 fL Sodium Level 135 136-145 mmol/L Potassium Level 4.5 3.5-5.1 mmol/L Chloride Level 96 98-107 mmol/L Carbon Dioxide Level 28 21-32 mmol/L Anion Gap 11.0 3-11 mmol/L Blood Urea Nitrogen 18 7-18 mg/dl Creatinine 0.45 0.60-1.20 mg/dl Est Creatinine Clear Calc Drug Dose 69.7 ml/min Estimated GFR () 104.4 Estimated GFR (Non- 90.1 BUN/Creatinine Ratio 39.8 10-20 Random Glucose 111 70-99 mg/dl Calcium Level 9.4 8.5-10.1 mg/dl Assessment and Plan 86 yo F w/ Hx of Asthma p/w hypoxic resp failure Acute Hypoxic Resp Failure: -likely due to Asthma exacerbation/bronchiectasis exacerbation, possibly secondary to aspiration. -CHF origin unlikely considering previous Echo May 2015, showing normal systolic fxn, EF 50-55%. Normal BNP -no evidence of aspiration pneumonitis on CXR -O2 saturation improved with O2 -Stopped IV Solu-Medrol 20 mg q8. Start 40 mg Prednisone x 4 days -Duonebs PRN -Aspiration precautions, Speech therapy Consulted for swallowing evaluation -Continue Augmentin Hx of Atrial Flutter -resolved, -EKG shows normal sinus rhythm DVT Prophylaxis: -Heparin 5000u q 8 (patient refused) -SCD's Hyponatremia: improved, pt asymptomatic -133--> 135 -Continue to monitor -F/U AM PRP Cough -chronic, non-productive, at baseline -Continue prn Tessalon pearls Right Lower Lung crackles: likely consistent w/ patient's history of chronic lung scarring, bronchiectasis last cxr showed no acute findings -Continue to monitor Diet: Regular Diet Code Status: Full Resuscitation Disposition: currently lives at home with "[employer]" 3x/wk. Case management has spoken w/ patient and waiting possible placement with [facility] or [place] Continued [facility] stay due to: home environment unsafe for pt Discharge planning: rehab hospital Resident Tracking Resident Involvement: Resident Care Provided Care Provided: Adult Hospital Medicine Reviewed: Pt Seen/Exam by Me Constitutional: denies: fever Respiratory: negative: short of breath Cardiovascular: denies chest pain Gastrointestinal/Abdominal: negative: abdominal pain General Appearance: no apparent distress Respiratory: lungs clear, no respiratory distress Cardiovascular: regular rate, rhythm Neurologic/Psychiatric: alert, oriented x 3 Assessment/Plan I have reviewed the medical record and performed a history and physical examination of this patient today. I have discussed the case with Dr. Azevedo. The above note reflects my findings, conclusions, and recommendations. Await rehab placement
[2016-12-11] MEDS: ZOLPIDEM TARTRATE 5 MG TAB PO PRN (21:44)
[2016-12-12] VITALS (7 sets, daily range): BP systolic 127–147; BP diastolic 68–79; PULSE 77–101; TEMP 36.4–36.6; O2SAT 92–95
[2016-12-12] MEDS: HEPARIN SOD 5000 UNIT/0.5 ML CARP SQ SCH ×3 (06:00→20:07)
[2016-12-12] MEDS: ALBUT/IPRATROP 3MG/0.5MG NEB 3 ML VIAL INH SCH ×4 (06:49→20:12)
[2016-12-12 07:35] LABS: HEMATOCRIT 37.8 % (37-47); MEAN CELL VOLUME 82.9 fL (80-100); MEAN CORPUSCULAR HEMOGLOBIN 28.1 pg (25-34); MEAN CORPUSCULAR HGB CONC 33.9 g/dl (32-36); PLATELET COUNT 459 K/uL (130-400); RED BLOOD COUNT 4.56 M/uL (4.2-5.4); WHITE BLOOD COUNT 10.92 K/uL (4.8-10.8)
[2016-12-12 08:07] LABS: BUN/CREATININE RATIO 32.4 (10-20); CALCIUM 8.9 mg/dl (8.5-10.1); CREATININE 0.53 mg/dl (0.60-1.20)
[2016-12-12] MEDS: AMOXICILLIN/CLAVULANATE TAB 875 MG TAB PO SCH ×2 (08:08→17:04)
[2016-12-12] MEDS: ASPIRIN 81 MG ECTAB PO SCH (08:09)
[2016-12-12] MEDS: CHOLECALCIFEROL 1000 INTER.UNIT TAB PO SCH (09:56)
[2016-12-12] MEDS: BENZONATATE 100MG CAP PO PRN (11:55)
--- NOTE | 2016-12-12 14:13 | Family Medicine Progress Note ---
Progress Note Date of Service Dec 12, 2016. Subjective Pt evaluation today including: conversation w/ patient, conversation w/ family , physical exam, chart review, lab review, review of studies, review of inpatient medication list Pt reports improvement in general condition, SOB remains at baseline dyspnea on exertion. cough has significantly improved. denies further diarrhea. no cp, abdominal pain, n/v Constitutional: No chills, No fever Respiratory: + dyspnea on exertion Cardiovascular: No chest pain, No palpitations Abdomen: No diarrhea, No nausea, No pain, No vomiting Female : No dysuria, No urinary frequency Medications Current Inpatient Medications Medications (Trade) Dose Ordered Sig/Karla Route Start Time Stop Time Status Last Admin Dose Admin Heparin Sodium (Porcine) (Heparin Sq 5000 Unit/0.5ml) 5,000 unit Q8H SQ 12/09/16 22:00 01/08/17 21:59 Acetaminophen (Tylenol Tab) 650 mg Q4H PRN PO 12/09/16 11:30 01/08/17 11:29 12/09/16 16:11 650 MG Al Hydrox/Mg Hydrox/Simethicone (Maalox Max Susp) 15 ml Q4H PRN PO 12/09/16 11:30 01/08/17 11:29 Magnesium Hydroxide (Milk Of Magnesia Susp) 30 ml Q6H PRN PO 12/09/16 11:30 01/08/17 11:29 Polyethylene (Miralax Powder Packet) 17 gm DAILY PRN PO 12/09/16 11:30 01/08/17 11:29 Ondansetron HCl (Zofran Inj) 4 mg Q6H PRN IV 12/09/16 11:30 01/08/17 11:29 Aspirin (Ecotrin Tab) 81 mg DAILY PO 12/10/16 09:00 01/09/17 08:59 12/12/16 08:09 81 MG Cholecalciferol (Vitamin D Tab) 1,000 inter.unit QAM PO 12/10/16 09:00 01/09/17 08:59 12/12/16 09:56 1,000 INTER.UNIT Albuterol/ Ipratropium (Duoneb) 3 ml QIDR INH 12/09/16 16:00 01/08/17 15:59 12/12/16 11:12 3 ML Miscellaneous Information (Order Awaiting Action) 1 ea QS N/A 12/10/16 00:00 01/09/17 00:00 Zolpidem Tartrate (Ambien Tab) 5 mg HS PRN PO 12/10/16 00:15 01/09/17 00:14 12/11/16 21:44 5 MG Benzonatate (Tessalon Perles Cap) 100 mg TID PRN PO 12/10/16 09:00 01/09/17 08:59 12/12/16 11:55 100 MG Menthol (Nice Teresa) 1 teresa PRN PRN PO 12/10/16 09:45 01/09/17 09:44 Sodium Chloride ([place] Nasal [place]) 1 sprays PRN PRN NA 12/10/16 09:45 01/09/17 09:44 Amoxicillin/ Clavulanate Potassium (Augmentin Tab) 875 mg BIDM PO 12/10/16 17:00 12/17/16 16:59 12/12/16 08:08 875 MG Prednisone (PredniSONE TAB) 40 mg DAILY PO 12/12/16 09:00 12/15/16 08:59 12/12/16 08:12 40 MG Objective Vital Signs Date Time Temp Pulse Resp B/P Pulse Ox O2 Delivery O2 Flow Rate FiO2 12/12/16 11:17 80 16 94 Room Air 12/12/16 08:00 Room Air 12/12/16 07:52 36.4 81 16 147/79 94 Room Air 12/12/16 06:49 80 16 94 Room Air 12/12/16 00:00 Room Air 12/11/16 23:08 36.6 92 16 130/66 94 Room Air 12/11/16 20:00 Room Air 12/11/16 19:26 82 16 96 Room Air 12/11/16 15:49 36.8 93 16 145/74 94 Room Air 12/11/16 15:25 Room Air 12/11/16 15:20 62 16 97 Room Air Physical Exam General Appearance: WD/WN, no apparent distress Eyes: normal inspection, PERRL, EOMI ENT: normal ENT inspection, hearing grossly normal Neck: supple, no adenopathy Respiratory/Chest: lungs clear, normal breath sounds Cardiovascular: regular rate, rhythm, no murmur Abdomen: normal bowel sounds, soft Laboratory Results Results Past 24 Hours Test 12/12/16 07:18 Range/Units White Blood Count 10.92 4.8-10.8 K/uL Red Blood Count 4.56 4.2-5.4 M/uL Hemoglobin 12.8 12.0-16.0 g/dL Hematocrit 37.8 37-47 % Mean Corpuscular Volume 82.9 80-100 fL Mean Corpuscular Hemoglobin 28.1 25-34 pg Mean Corpuscular Hemoglobin Concent 33.9 32-36 g/dl RDW Standard Deviation 41.6 36.4-46.3 fL RDW Coefficient of Variation 13.7 11.5-14.5 % Platelet Count 459 130-400 K/uL Mean Platelet Volume 9.0 7.4-10.4 fL Sodium Level 135 136-145 mmol/L Potassium Level 4.0 3.5-5.1 mmol/L Chloride Level 97 98-107 mmol/L Carbon Dioxide Level 30 21-32 mmol/L Anion Gap 8.0 3-11 mmol/L Blood Urea Nitrogen 17 7-18 mg/dl Creatinine 0.53 0.60-1.20 mg/dl Est Creatinine Clear Calc Drug Dose 59.2 ml/min Estimated GFR () 98.9 Estimated GFR (Non- 85.4 BUN/Creatinine Ratio 32.4 10-20 Random Glucose 90 70-99 mg/dl Calcium Level 8.9 8.5-10.1 mg/dl Assessment and Plan 86 yo F w/ Hx of Asthma p/w hypoxic resp failure Acute Hypoxic Resp Failure: -likely due to Asthma exacerbation/bronchiectasis exacerbation, possibly secondary to aspiration. -CHF origin unlikely considering previous Echo May 2015, showing normal systolic fxn, EF 50-55%. Normal BNP -no evidence of aspiration pneumonitis on CXR -O2 saturation improved with O2 -Continue 40 mg Prednisone x 4 days -Duonebs PRN -Aspiration precautions -Continue Augmentin Hx of Atrial Flutter -resolved, -EKG shows normal sinus rhythm DVT Prophylaxis: -Heparin 5000u q 8 (patient refused) -SCD's Hyponatremia: improved, pt asymptomatic -135--> 135 -Continue to monitor -F/U AM PRP Cough -improved per patient, non-productive, -Continue prn Tessalon pearls Right Lower Lung crackles: likely consistent w/ patient's history of chronic lung scarring, bronchiectasis last cxr showed no acute findings -Continue to monitor Diet: Regular Diet Code Status: Full Resuscitation Disposition: currently lives at home with "[employer]" 3x/wk. Awaiting placement with [facility] or [place] Continued [facility] stay due to: home environment unsafe for pt Discharge planning: rehab hospital Resident Tracking Resident Involvement: Resident Care Provided Care Provided: Adult Hospital Medicine Reviewed: Pt Seen/Exam by Me History feeling much better today Constitutional: denies: fever Respiratory: negative: short of breath Cardiovascular: denies chest pain Gastrointestinal/Abdominal: negative: abdominal pain General Appearance: no apparent distress Respiratory: lungs clear, no respiratory distress Cardiovascular: regular rate, rhythm Gastrointestinal: normal bowel sounds, non tender, soft Neurologic/Psychiatric: alert, oriented x 3 Skin Characteristics: warm/dry Assessment/Plan I have reviewed the medical record and performed a history and physical examination of this patient today. I have discussed the case with Dr. Azevedo. The above note reflects my findings, conclusions, and recommendations. Await rehab placement
[2016-12-12] MEDS: MAGNESIUM HYDROXIDE SUSP 30 ML UDC PO PRN (20:10)
[2016-12-12] MEDS: ZOLPIDEM TARTRATE 5 MG TAB PO PRN (23:57)
[2016-12-13] MEDS: HEPARIN SOD 5000 UNIT/0.5 ML CARP SQ SCH (06:00)
[2016-12-13 07:08] VITALS: PULSE 57; O2SAT 96
[2016-12-13] MEDS: ALBUT/IPRATROP 3MG/0.5MG NEB 3 ML VIAL INH SCH ×2 (07:08→11:15)
[2016-12-13 07:17] LABS: HEMATOCRIT 38.7 % (37-47); MEAN CELL VOLUME 82.9 fL (80-100); MEAN CORPUSCULAR HEMOGLOBIN 27.8 pg (25-34); MEAN CORPUSCULAR HGB CONC 33.6 g/dl (32-36); MEAN PLATELET VOLUME 8.9 fL (7.4-10.4); PLATELET COUNT 477 K/uL (130-400); RED BLOOD COUNT 4.67 M/uL (4.2-5.4); WHITE BLOOD COUNT 12.81 K/uL (4.8-10.8)
--- NOTE | 2016-12-13 07:25 | Family Medicine Progress Note ---
Progress Note Date of Service Dec 13, 2016. Subjective Pt evaluation today including: conversation w/ patient, physical exam, chart review, lab review The patient was seen and examined at bedside. No acute overnight events. Patient is resting comfortably in bed. Denies having any pain. Eating and urinating well. Plan of care was described to the patient and all questions were answered. Pt enjoys her stay in the hospital and doesn't want to leave because she likes the food and everyone has been nice to her. Constitutional: No chills, No fever Respiratory: No cough, No shortness of breath, No sputum, No wheezing Cardiovascular: No chest pain Objective Physical Exam General Appearance: WD/WN, no apparent distress Cardiovascular: regular rate, rhythm, no edema, no gallop, no JVD, no murmur Abdomen: normal bowel sounds, non tender, soft, no organomegaly Extremities: normal range of motion, non-tender, normal inspection, no pedal edema Neurologic/Psychiatric: alert, normal mood/affect, oriented x 3 Assessment and Plan 86F w/ Hx of Asthma p/w hypoxic resp failure. Acute Hypoxic Resp Failure -likely due to Asthma exacerbation/bronchiectasis exacerbation, possibly secondary to aspiration. -CHF origin unlikely considering previous Echo May 2015, showing normal systolic fxn, EF 50-55%. Normal BNP -no evidence of aspiration pneumonitis on CXR -O2 saturation improved with O2 -Continue 40 mg Prednisone x 4 days, today is Day #2. -Duonebs PRN -Aspiration precautions -Continue Augmentin Hx of Atrial Flutter -resolved, -EKG shows normal sinus rhythm Hyponatremia (resolved) improved, pt asymptomatic -Na: 135--> 135 Cough -Improved per patient, non-productive, -Continue prn Tessalon pearls Right Lower Lung crackles: likely consistent w/ patient's history of chronic lung scarring, bronchiectasis last cxr showed no acute findings -Continue to monitor Disposition: currently lives at home with "[employer]" 3x/wk. Awaiting placement today. Full Code. Resident Involvement: Resident Care Provided Care Provided: Adult Hospital Medicine
[2016-12-13 07:29] VITALS: BP 147/71; PULSE 79; TEMP 36.3; O2SAT 95
[2016-12-13] MEDS: ASPIRIN 81 MG ECTAB PO SCH (07:41)
[2016-12-13] MEDS: AMOXICILLIN/CLAVULANATE TAB 875 MG TAB PO SCH (07:41)
[2016-12-13] MEDS: CHOLECALCIFEROL 1000 INTER.UNIT TAB PO SCH (07:41)
[2016-12-13 08:00] LABS: BUN/CREATININE RATIO 32.1 (10-20); CALCIUM 8.5 mg/dl (8.5-10.1); CREATININE 0.5 mg/dl (0.60-1.20); POTASSIUM 4.4 mmol/L (3.5-5.1)
[2016-12-13] MEDS: MAGNESIUM HYDROXIDE SUSP 30 ML UDC PO PRN (09:45)
[2016-12-13] MEDS ORDERED: AMOX1TAB43 PO (11:09)
[2016-12-13] MEDS ORDERED: PRD20 PO (11:09)
--- NOTE | 2016-12-13 11:11 | Discharge Instructions ---
Discharge Instructions Admission Reason for Admission: Dyspnea, Hypoxia Discharge Discharge Diagnosis / Problem: Acute hypoxic respiratory failure Discharge Goals Goal(s): Decrease discomfort, Improve function, Increase independence Activity Recommendations Activity Limitations: resume your previous activity . Instructions / Follow-Up Instructions / Follow-Up Follow up with Primary Care Provider in One week. Current Hospital Diet Patient's current hospital diet: Regular Diet Discharge Diet Recommended Diet: Regular Diet Pending Studies Studies pending at discharge: no Medical Emergencies . Who to Call and When: Medical Emergencies: If at any time you feel your situation is an emergency, please call 911 immediately. . Non-Emergent Contact Non-Emergency issues call your: Primary Care Provider . . "Provider Documentation" section prepared by Nando Justin. VTE Core Measure Inpt VTE Proph given/why not?: Unfractionated heparin SQ, SCD's Resident Involvement: Resident Care Provided Care Provided: Adult Hospital Medicine
[2016-12-13 11:16] VITALS: PULSE 74; O2SAT 93
--- NOTE | 2016-12-13 11:17 | Discharge Summary ---
Discharge Summary Admission Date: Dec 09, 2016 at 11:58 Discharge Date: Dec 13, 2016 Discharge Disposition: Acute care facility Principal Diagnosis: Acute hypoxic resporatory failure Immunizations: Have You Had Influenza Vaccine: Yes Influenza Vaccine Date: Sep 29, 2010 History of Tetanus Vaccine?: Yes History of Pneumococcal: Yes History of Hepatitis B Vaccine: No (Nando Justin M.D.) Medication Reconciliation New Medications: Amoxicillin & Pot Clavulanate (Amoxicillin/Clavulanate P) 1 Tab Tab 875 MG PO BIDM for 5 Days, #10 TAB Prednisone (Prednisone) 20 Mg Tab 40 MG PO DAILY for 1 Day, #2 TAB Continued Medications: Albuterol (Proair Hfa) Aers 2 PUFFS INH Q4-6H PRN for SOB/Wheezing Aspirin (Aspirin Ec) 81 Mg Tab 81 MG PO DAILY Cholecalciferol (Vitamin D) 1,000 Inter.unit Tab 1000 INTER.UNIT PO QAM, TAB Melatonin (Kp Melatonin) 3 Mg Tab 3 MG PO HS for 30 Days, #30 TAB 2 Refills Discharge Exam Subjective Pt evaluation today including: conversation w/ patient, physical exam, chart review, lab review The patient was seen and examined at bedside. No acute overnight events. Patient is resting comfortably in bed. Denies having any pain. Eating and urinating well. Plan of care was described to the patient and all questions were answered. Pt enjoys her stay in the hospital and doesn't want to leave because she likes the food and everyone has been nice to her. Constitutional: No chills, No fever Respiratory: No cough, No shortness of breath, No sputum, No wheezing Cardiovascular: No chest pain Objective Physical Exam General Appearance: WD/WN, no apparent distress Cardiovascular: regular rate, rhythm, no edema, no gallop, no JVD, no murmur Abdomen: normal bowel sounds, non tender, soft, no organomegaly Extremities: normal range of motion, non-tender, normal inspection, no pedal edema Neurologic/Psychiatric: alert, normal mood/affect, oriented x 3 (Nando Justin M.D.) Review of Systems: Constitutional: No fever Respiratory: No shortness of breath Cardiovascular: No chest pain Abdomen: No nausea, No pain, No vomiting Physical Exam: General Appearance: no apparent distress Respiratory/Chest: lungs clear, no respiratory distress Cardiovascular: regular rate, rhythm Abdomen / GI: normal bowel sounds, non tender, soft Neurologic/Psychiatric: alert, oriented x 3 Skin: warm/dry (Nicole Lopez M.D.) Hospital Course 86F with a history of Asthma came to the hospital with a two day history of shortness of breath and diarrhea. Her other symptoms included mild cough and rhinorrhea. She denied chest pain, fevers, sore throat and other urinary symptoms. Pt has inhalers at home but has not been taking them. In the ER pt received duonebs and IV solumedrol. Stool sample was negative for C Diff or other toxins. CXR showed no acute pulmonary abnormalities. Pt was admitted to acute hypoxic respiratory failure. She improved clinically and was discharged on 875mg BID of Augment x 5 days of a 7 day total course and one more day of Prednisone 40mg for a total 4 day course. Total Time Spent: Greater than 30 minutes This includes examination of the patient, discharge planning, medication reconciliation, and communication with other providers. (Nando Justin M.D.) I have reviewed the medical record and performed a history and physical examination of this patient today. I have discussed the case with Dr. Justin. The above note reflects my findings, conclusions, and recommendations. Total Time Spent: Greater than 30 minutes (40) (Nicole Lopez M.D.) Discharge Instructions Please refer to the electronic Patient Visit Report (Discharge Instructions) for additional information. (Nando Justin M.D.) Follow-Up Follow up with your primary care provider within 7 days. (Nando Justin M.D.) Additional Copies To Chin Wells M.D. Resident Involvement: Resident Care Provided Care Provided: Adult [facility] (Nando Justin M.D.)
[2016-12-13 12:20] VITALS: BP 147/71; PULSE 74; TEMP 36.3; O2SAT 93
== END 2016-12-13 13:45 | DRG 189 ==
LOC: ENRESERVTM → ENRESERVDT → EDBD 07:36 → C.EDB 07:37 → C.MS2W 11:58
PROVIDERS: ADMIT Family Medicine; ATTEND Family Medicine
DX: J96.01 Acute respiratory failure with hypoxia (principal); J44.0 Chronic obstructive pulmonary disease with (acute) lower respiratory infection; E87.1 Hypo-osmolality and hyponatremia; Z79.82 Long term (current) use of aspirin

== ENCOUNTER → 2016-12-23 | Outpatient (CLI) | payer BC ==
[~2016-12-23] MED LIST changes: +AMOX1TAB43 PO; +PRD20 PO
== END ==
LOC: C.LABVPSUA 09:11
PROVIDERS: ATTEND Internal Medicine Critical Care Medicine
DX: E55.9 Vitamin D deficiency, unspecified (principal)

== ENCOUNTER → 2017-03-05 | Outpatient (CLI) | payer BC ==
[2017-03-05 16:55] LABS: BASO % 0.5 %; BASO ABS # 0.04 K/uL (0-0.2); COMPLETE YES; EOS % 1.7 %; HEMATOCRIT 43.9 % (37-47); IG% 0.4 %; LYMPH % 17.1 %; LYMPH ABS # 1.37 K/uL (1.2-3.4); MEAN CELL VOLUME 84.7 fL (80-100); MEAN PLATELET VOLUME 9.6 fL (7.4-10.4); MONO % 11.5 %; NEUT % 68.8 %; PLATELET COUNT 418 K/uL (130-400); RED BLOOD COUNT 5.18 M/uL (4.2-5.4); WHITE BLOOD COUNT 8.02 K/uL (4.8-10.8)
[2017-03-05 17:13] LABS: BLOOD UREA NITROGEN 9 mg/dl (7-18); BUN/CREATININE RATIO 13.5 (10-20); CALCIUM 9.2 mg/dl (8.5-10.1); CARBON DIOXIDE 32 mmol/L (21-32); CHLORIDE 99 mmol/L (98-107); CREATININE 0.63 mg/dl (0.60-1.20); GLUCOSE 98 mg/dl (70-99); POTASSIUM 3.8 mmol/L (3.5-5.1); SODIUM 137 mmol/L (136-145)
[2017-03-05 17:25] LABS: THYROID STIMULATING HORMONE 0.883 uIu/ml (0.300-4.500)
--- NOTE | 2017-03-11 08:24 | CODING QUERY MEDICAL NECESSITY ---
SUPPORTING DIAGNOSIS NEEDED Dr. Wells, A supporting diagnosis is required for the test/procedure performed on this patient in order for us to be reimbursed by the patient's insurance. Please provide a supporting diagnosis for the following test/procedure listed below next to the test name along with your signature. *If there is no additional diagnosis for this patient that would support the following test/procedure please document that below next to the test/procedure. Test(s)/Procedure(s) that require a supporting diagnosis: * ([id number]) B12 VITAMIN LEVEL DIAGNOSIS: DATE OF SERVICE: 03/05/17 Provider Signature: Date: Thank you Ron Grace [facility] Information Management Once completed, please kindly fax back to [phone] For questions please call [phone]
== END | disposition home or self-care (01) ==
LOC: C.LABBC 14:33
PROVIDERS: ATTEND Internal Medicine Geriatric Medicine
DX: M81.0 Age-related osteoporosis without current pathological fracture (principal); R53.1 Weakness; S32.020A Wedge compression fracture of second lumbar vertebra, initial encounter for closed fracture; E55.9 Vitamin D deficiency, unspecified; X58.XXXA Exposure to other specified factors, initial encounter; E53.8 Deficiency of other specified B group vitamins

== ENCOUNTER → 2017-03-16 | Outpatient (CLI) | payer BC ==
[2017-03-16 14:53] LABS: URINE APPEARANCE CLEAR (CLEAR); URINE BILIRUBIN NEG (NEG); URINE COLOR DK YELLOW; URINE EPITHELIAL CELL AUTO >30 /lpf (0-5); URINE NITRITE NEG (NEG); URINE PH 6.5 (4.5-7.5); URINE SPECIFIC GRAVITY 1.015 (1.000-1.030); UROBILINOGEN NEG (NEG)
[2017-03-16 14:57] LABS: MANUAL MICROSCOPIC REQUIRED? NO; REVIEW REQ? NO
== END | disposition home or self-care (01) ==
LOC: C.LABBC 11:16
PROVIDERS: ATTEND Physician Assistant Medical
DX: R39.15 Urgency of urination (principal)

== ENCOUNTER → 2017-09-10 | Outpatient (CLI) | payer BC ==
[2017-09-10 13:42] LABS: BASO % 0.5 %; BASO ABS # 0.05 K/uL (0-0.2); COMPLETE YES; EOS % 1.4 %; HEMATOCRIT 47.9 % (37-47); IG% 0.5 %; LYMPH % 17.1 %; LYMPH ABS # 1.66 K/uL (1.2-3.4); MEAN CELL VOLUME 87.7 fL (80-100); MEAN CORPUSCULAR HEMOGLOBIN 28.4 pg (25-34); MEAN CORPUSCULAR HGB CONC 32.4 g/dl (32-36); MEAN PLATELET VOLUME 9.8 fL (7.4-10.4); MONO % 7.9 %; NEUT % 72.6 %; PLATELET COUNT 445 K/uL (130-400); RED BLOOD COUNT 5.46 M/uL (4.2-5.4); WHITE BLOOD COUNT 9.69 K/uL (4.8-10.8)
[2017-09-10 14:36] LABS: BLOOD UREA NITROGEN 5 mg/dl (7-18); BUN/CREATININE RATIO 8.5 (10-20); CALCIUM 9.6 mg/dl (8.5-10.1); CARBON DIOXIDE 28 mmol/L (21-32); CHLORIDE 96 mmol/L (98-107); CREATININE 0.57 mg/dl (0.60-1.20); GLUCOSE 102 mg/dl (70-99); SODIUM 133 mmol/L (136-145)
== END | disposition home or self-care (01) ==
LOC: C.LABBC 10:37
PROVIDERS: ATTEND Internal Medicine Geriatric Medicine
DX: M81.0 Age-related osteoporosis without current pathological fracture (principal); R53.1 Weakness; G47.00 Insomnia, unspecified; E53.8 Deficiency of other specified B group vitamins; E55.9 Vitamin D deficiency, unspecified

== ENCOUNTER → 2017-10-07 | Outpatient (CLI) | payer BC ==
--- NOTE | 2017-10-07 14:27 | DIAGNOSTIC IMAGING REPORT ---
CHEST 2 VIEWS ROUTINE HISTORY: 87 years-old Female DYSPNEA acute dyspnea COMPARISON: Chest radiograph 12/09/2016, CTA chest 10/22/2016 TECHNIQUE: PA and lateral views of the chest FINDINGS: Areas of chronic subpleural reticulation are again seen, left greater than right with hyperinflation. There is no pneumothorax, pleural effusion, focal airspace consolidation or overt pulmonary edema. Lung apices are partially secured by the patient's chin. Mild left apical pleural parenchymal scarring redemonstrated. Mild bibasilar bronchiectasis There is atherosclerosis of the aorta. The bones appear grossly intact. Sigmoidal scoliosis of the thoracolumbar spine redemonstrated. IMPRESSION: 1. Chronic subpleural reticular opacities, left greater than right suggesting interstitial scarring with hyperinflation appears unchanged. No acute cardiopulmonary process. 2. Mild bibasilar bronchiectasis redemonstrated. The above report was generated using voice recognition software. It may contain grammatical, syntax or spelling errors. Electronically signed by: Chi Funes M.D. 10/07/2017 2:26 PM Dictated Date/Time: 10/07/2017 2:23 PM
== END | disposition home or self-care (01) ==
LOC: C.RADBC 13:53
PROVIDERS: ATTEND Physician Assistant
DX: R06.00 Dyspnea, unspecified (principal); R91.8 Other nonspecific abnormal finding of lung field

== ENCOUNTER → 2018-03-23 | Outpatient (CLI) | payer BC | END | disposition home or self-care (01) | LOC: C.LAB 11:57 | PROVIDERS: ATTEND Internal Medicine Geriatric Medicine | DX: R35.0 Frequency of micturition (principal); R39.15 Urgency of urination ==

== ENCOUNTER 2018-12-09 14:57 | Inpatient (IN) ==
[2018-12-09] MEDS ORDERED: ONDANSETRON INJ 2 MG/ML 2 ML VIAL IV STA (15:18)
[2018-12-09] MEDS ORDERED: SODIUM CHLORIDE 0.9% 1000ML 1,000 ML IV SCH (15:30)
--- NOTE | 2018-12-09 15:43 | XRay Report ---
XR chest 1V portable CLINICAL HISTORY: weakness dyspnea COMPARISON STUDY: 10/07/2018 FINDINGS: Potential minimal interstitial infiltrate left lung base. Lungs otherwise appear clear. Mod erate emphysematous change. Scoliosis of the thoracic spine. IMPRESSION: Chronic change. Superimposed interstitial infiltrate left lung base. The above report was generated using voice recognition software. It may contain grammatical, syntax or spelling errors. Electronically signed by: Nando Menard M.D. 12/09/2018 3:41 PM
--- NOTE | 2018-12-09 16:01 | Emergency Department Note ---
Entered by Meli Vega acting as a scribe for Cordell Castillo MD History of Present Illness General Chief complaint: Weakness Stated complaint: REFERRED FOR DIZZINESS,WEAKNESS, ERRATIC HEARTBEAT Time Seen by Provider: 12/09/18 15:15 Source: patient and family Mode of arrival: ambulatory Limitations: no limitations History of Present Illness Provider complaint: Weakness Onset (ago): day(s) ("couple days ago") Severity: moderate Pain Consistency: + constant Maximum Pain Intensity: 0 Associated symptoms: + loss of appetite, + nausea/vomiting (+ nausea, - vomiting ) and + shortness of breath; no fever/chills Patient is an 88 year old female presenting to the ED with weakness beginning a couple days ago. Patient states that she has been feeling all over weak since onset, which is constant and moderate in severity. She shares she has been having associated dizziness, SOB and nausea. Son shares that patient has not been eating or drinking much for the past x3 days. Patient notes she did visit a [employer] today for sx, who referred patient to report to ED. Patient notes she does live by herself, and has not had any recent falls. Patient notes she does have a chronic cough, but denies any fevers, chills, vomiting, diarrhea, urinary sx or any other complaints or concerns at this time. She lastly shares she does have a history of COPD, and does not take any blood thinners. Home Medications Home Medications Medication Instructions Recorded Confirmed Type cholecalciferol (vitamin D3) 2,000 unit PO DAILY #0 tab 07/13/15 12/09/18 History [Vitamin D3] melatonin 1 mg PO HS 30 Days #30 tab 07/13/15 12/09/18 History aspirin 325 mg PO DAILY PRN 07/31/18 12/09/18 History alendronate 70 mg PO WK 10/03/18 12/09/18 History guaifenesin [Mucinex] 600 mg PO Q12H PRN #30 tab 10/19/18 12/09/18 Rx albuterol sulfate [ProAir HFA] 2 puff INHALATION Q4 PRN 12/09/18 12/09/18 History albuterol sulfate [Ventolin HFA] 2 puff INHALATION Q4 PRN 12/09/18 12/09/18 History capsaicin [Zostrix-HP] 1 applic TOPICAL QID 12/09/18 12/09/18 History doxycycline hyclate 100 mg PO BID 10 Days #20 tab 12/09/18 Rx fluticasone-vilanterol [Breo 1 inh INHALATION DAILY 12/09/18 12/09/18 History Ellipta] multivitamin 1 tab PO DAILY 12/09/18 12/09/18 History ondansetron HCl [Zofran] 4 mg PO Q6 PRN #10 tab 12/09/18 Rx Allergies Allergy/AdvReac Type Severity Reaction Status Date / Time cat dander Allergy Intermediate ITCHY, RED Verified 12/09/18 16:23 RASH, CONGESTION dog dander Allergy Intermediate ITCHY, RED Verified 12/09/18 16:23 RASH, CONGESTION horse dander Allergy Intermediate ITCHY, RED Verified 12/09/18 16:23 RASH, CONGESTION rabbit dander Allergy Intermediate ITCHY, RED Verified 12/09/18 16:23 RASH, CONGESTION Past Med/Surg History Family History Other No significant family history Social History marital status: / Current Living Situation: Alone Feels Safe at Home: Yes Smoking Status: Never smoker Hx Alcohol Use: Yes Alcohol type: wine Alcohol Intake Frequency: holidays/ special occasions only Hx Substance Use: No Beliefs That Will Affect Care: None Preferred Language: Pashto Review of Systems See HPI for pertinent positives & negatives. and A total of 10 systems reviewed and were otherwise negative Physical Exam Vital Signs Vital Signs - 24 hr 12/09/18 15:01 12/09/18 15:20 12/09/18 17:00 Temperature 36.4 C L Temperature Source Oral Sepsis Recent Fever Within 48 Hours No Sepsis New/Unexplained Change in Mental Status No Sepsis Action Taken by Nursing No Action Required Pulse Rate 96 H 102 H Pulse Rate [Finger] 95 H Respiratory Rate 26 H 18 Respiratory Depth Normal Blood Pressure 151/74 H Blood Pressure [Right Arm] Blood Pressure Mean 99 Blood Pressure Mean [Right Arm] Blood Pressure Position Sitting Blood Pressure Position [Right Arm] Pulse Oximetry 95 96 Oxygen Delivery Method Room Air Room Air 12/09/18 19:00 Temperature Temperature Source Sepsis Recent Fever Within 48 Hours Sepsis New/Unexplained Change in Mental Status Sepsis Action Taken by Nursing Pulse Rate Pulse Rate [Finger] Respiratory Rate Respiratory Depth Blood Pressure Blood Pressure [Right Arm] 156/75 H Blood Pressure Mean Blood Pressure Mean [Right Arm] 102 Blood Pressure Position Blood Pressure Position [Right Arm] Lying Pulse Oximetry Oxygen Delivery Method GENERAL: Patient is in no acute distress. HEENT: No acute trauma, normocephalic atraumatic, mucous membranes moist, no nasal congestion, no scleral icterus. NECK: No stridor, no adenopathy, no meningismus, trachea is midline. LUNGS: No crackles or wheezing. Equal breath sounds. Breath sounds diminished bilaterally. HEART: Without murmurs gallops or rubs, regular rate and rhythm. ABDOMEN: Soft, nontender, bowel sounds positive, no hernias, no peritonitis. EXTREMITIES: No cyanosis or edema, full range of motion of all the joints without pain or difficulty, no signs for acute trauma. Cool to touch. NEUROLOGIC: Oriented x 3, no acute motor or sensory deficits, no focal weakness. No speech slur, cerebellar disfunction or pronator drift. SKIN: No rash, no jaundice, no diaphoresis. Course 1518: Past medical records reviewed. The patient was evaluated in room C08, and a complete history and physical examination were performed. 1803: Reassessed patient, patient wishes to be discharged home soon. 1852: Discussed results with patient, who wishes to be admitted now. Case management will discuss with patient and family. 8: Updated by case management that patient still wishes to be admitted. Hospitalist will be contacted. 4: Discussed case with Dr. Vicente, who will accept patient for admission 1930: Updated patient on plan for admission, patient is agreeable to plan. Administered Medications Discontinued Medications Doxycycline Hyclate (Vibramycin) 100 mg PO NOW STA Stop: 12/09/18 18:14 Last Admin: 12/09/18 18:31 Dose: 100 mg Sodium Chloride (Nss 1000ml) 1,000 mls @ 999 mls/hr IV .Q1H1M AVANI Stop: 12/09/18 16:30 Last Infusion: 12/09/18 17:25 Dose: 0 mls/hr Admin: 12/09/18 16:15 Dose: 999 mls/hr Ceftriaxone Sodium (Rocephin) 1,000 mg in 50 mls @ 100 mls/hr IV NOW STA Stop: 12/09/18 18:37 Last Infusion: 12/09/18 19:10 Dose: Admin: 12/09/18 18:31 Dose: 100 mls/hr Sodium Chloride (Nss) 500 mls @ 999 mls/hr IV .Q31M STA Stop: 12/09/18 18:38 Last Infusion: 12/09/18 19:10 Dose: Admin: 12/09/18 18:31 Dose: 999 mls/hr Ondansetron HCl (Zofran) 4 mg IV NOW STA Stop: 12/09/18 15:19 Last Admin: 12/09/18 16:15 Dose: 4 mg Medical Decision Making Differential Diagnosis Differential Diagnosis includes:dehydration, UTI, electrolyte imbalance, hyponatremia, stroke, anemia, PA, intracranial bleed, viral illness, dysrhythmia , pneumonia Medical Records Attestation: I reviewed the patient's medical records. Home Medications Current Medication List: was personally reviewed by me Laboratory Data Attestation: I reviewed the patient's lab results. Result diagrams: 12/09/18 16:33 12/09/18 16:33 Lab Results 12/09/18 12/09/18 12/09/18 Range/Units 16:33 16:33 17:05 WBC 9.64 (4.8-10.8) K/uL RBC 4.92 (4.2-5.4) M/uL Hgb 14.0 (12.0-16.0) g/dL Hct 43.5 (37-47) % MCV 88.4 (80-100) fL MCH 28.5 (25-34) pg MCHC 32.2 (32-36) g/dL RDW Std Deviation 45.0 (36.4-46.3) fL RDW Coeff of Angelique 13.9 (11.5-14.5) % Plt Count 367 (130-400) K/uL MPV 9.9 (7.4-10.4) fL Immature Gran % (Auto) 0.4 % Neut % (Auto) 79.7 % Lymph % (Auto) 8.2 % [place] % (Auto) 10.6 % Eos % (Auto) 0.7 % Baso % (Auto) 0.4 % Immature Gran # (Auto) 0.04 H (0.00-0.02) K/uL Neut # (Auto) 7.68 H (1.4-6.5) K/uL Lymph # (Auto) 0.79 L (1.2-3.4) K/uL [place] # (Auto) 1.02 H (0.11-0.59) K/uL Eos # (Auto) 0.07 (0-0.5) K/uL Baso # (Auto) 0.04 (0-0.2) K/uL Sodium 135 L (136-145) mmol/L Potassium 4.3 (3.5-5.1) mmol/L Chloride 100 (98-107) mmol/L Carbon Dioxide 30 (21-32) mmol/L Anion Gap 5.0 (3-11) BUN 7 (7-18) mg/dl Creatinine 0.54 L (0.6-1.2) mg/dl Est Cr Clr Drug Dosing 50.2 ml/min Est GFR ( Amer) 97.0 Est GFR (Non-Af Amer) 83.7 BUN/Creatinine Ratio 13.8 (10-20) Glucose 105 H (70-99) mg/dl Calcium 9.0 (8.5-10.1) mg/dl Magnesium 1.8 (1.8-2.4) mg/dl Total Bilirubin 0.4 (0.2-1) mg/dl AST 14 L (15-37) U/L ALT 12 (12-78) U/L Alkaline Phosphatase 65 (45-117) U/L Troponin I < 0.015 (0-0.045) ng/ml Total Protein 5.9 L (6.4-8.2) gm/dl Albumin 2.7 L (3.4-5.0) gm/dl Globulin 3.2 (2.5-4.0) gm/dl Albumin/Globulin Ratio 0.8 L (0.9-2) TSH 0.776 (0.300-4.500) uIu/ml Urine Color Dark Yellow Urine Appearance Clear (Clear) Urine pH 7.5 (4.5-7.5) Ur Specific [place] 1.016 (1.000-1.030) Urine Protein Negative (Negative) Urine Glucose (UA) Negative (Negative) Urine Ketones Trace H (Negative) Urine Blood Negative (Negative) Urine Nitrite Negative (Negative) Urine Bilirubin Negative (Negative) Urine Urobilinogen Negative (Negative) Ur Leukocyte Esterase Trace H (Negative) Urine WBC (Auto) 1-5 (0-5) /hpf Urine RBC (Auto) 5-10 H (0-4) /hpf U Hyaline Cast (Auto) 1-5 (0-5) /lpf U Epithel Cells (Auto) 20-30 H (0-5) /lpf Urine Bacteria (Auto) Negative (Negative) Imaging Data Radiologist's Impression: XR chest 1V portable CLINICAL HISTORY: weakness dyspnea COMPARISON STUDY: 10/07/2018 FINDINGS: Potential minimal interstitial infiltrate left lung base. Lungs otherwise appear clear. Moderate emphysematous change. Scoliosis of the thoracic spine. IMPRESSION: Chronic change. Superimposed interstitial infiltrate left lung base. The above report was generated using voice recognition software. It may contain grammatical, syntax or spelling errors. Electronically signed by: Nando Menard M.D. 12/09/2018 3:41 PM Dictated: 12/09/18 1540 Transcribed: 12/09/[address] head/brain wo con CT DOSE: 729.78 mGycm HISTORY: Mental status change weakness TECHNIQUE: Multiaxial CT images of the head were performed without the use of intravenous contrast. A dose lowering technique was utilized adhering to the principles of ALARA. Comparison: 07/31/2018 Findings: The paranasal sinuses and mastoid air cells are clear. The calvarium and skull base are intact. The ventricles and sulci are within normal limits. There is no mass, hematoma, midline shift, or acute infarct. Age-related atrophy and chronic small vessel change Impression: No acute intracranial abnormality. Chronic changes as described. The above report was generated using voice recognition software. It may contain grammatical, syntax or spelling errors. Electronically signed by: Nando Menard M.D. 12/09/2018 4:34 PM Dictated: 12/09/18 1632 Transcribed: 12/09/18 1632 ECG Data Attestation: I personally reviewed and interpreted this ECG as follows: Indication: weakness Rate (beats per minute): 94 Rhythm: normal sinus Findings: no PVC and no ST elevation MDM Narrative There is no leukocytosis or concerning anemia. No significant electrolyte abnormality, kidney failure or hepatitis. EKG shows a sinus rhythm, no acute ischemia. Cardiac enzyme testing x1 is not consistent with acute cardiac injury. The patient appears to be in a euthyroid state. Urinalysis does not show infection. Blood cultures are pending. Chest film showed a potential subtle left lung pneumonia. Brain CT does not show any evidence for acute bleed or mass-effect. The patient received 1.5 L of IV saline for hydration. She received IV ceftriaxone as antibiotic coverage. She was given oral doxycycline, she received IV Zofran. The patient does live alone. She has been weak and there is concern that she may not be able to properly care for herself. She is 88 years of age with pneumonia. It does appear that a hospital stay is warranted. I spoke to the patient and case management. The on-call hospitalist was consulted. The patient is aware of all her findings and results. Impression & Plan Weakness, Pneumonia, Acute dehydration Discharge Plan Visit Data Chief Complaint: Weakness Stated Complaint: REFERRED FOR DIZZINESS,WEAKNESS, ERRATIC HEARTBEAT ED Provider: Cordell Castillo Discharge Problem: Weakness, Pneumonia, Acute dehydration Patient Disposition: Home - Self-Care Condition: Good Discharge Instructions Activity Restrictions/Additional Instructions: stay well hydrated zofran 1 tab every 6 hours for nausea as needed doxycycline 2x per day for 10 days rest see miguelina calvert for a recheck next week return for fever, worsening symptoms, shortness of breath or vomiting Forms Stand Alone Forms: [facility], Important Visit Information Prescriptions Prescriptions: New ondansetron HCl [Zofran] 4 mg tablet 4 mg PO Q6 PRN (Reason: nausea and vomiting) Qty: 10 RF: 0 doxycycline hyclate 100 mg tablet 100 mg PO BID 10 Days Qty: 20 RF: 0 No Action cholecalciferol (vitamin D3) [Vitamin D3] 1,000 unit Capsule 2,000 unit PO DAILY Qty: 0 RF: 0 melatonin 1 mg Tablet 1 mg PO HS 30 Days Qty: 30 RF: 2 multivitamin Tablet 1 tab PO DAILY RF: 0 albuterol sulfate [ProAir HFA] 90 mcg/actuation Hfa Aerosol Inhaler 2 puff INHALATION Q4 PRN (Reason: Shortness Of Breath Or Wheezing) RF: 0 albuterol sulfate [Ventolin HFA] 90 mcg/actuation Hfa Aerosol Inhaler 2 puff INHALATION Q4 PRN (Reason: Shortness Of Breath Or Wheezing) RF: 0 capsaicin [Zostrix-HP] 0.1 % Cream 1 applic TOPICAL QID RF: 0 fluticasone-vilanterol [Breo Ellipta] 100-25 mcg/dose Blister With Device 1 inh INHALATION DAILY RF: 0 aspirin 325 mg Tablet 325 mg PO DAILY PRN (Reason: Pain) RF: 0 alendronate 70 mg tablet 70 mg PO WK RF: 0 guaifenesin [Mucinex] 600 mg tablet extended release 12hr 600 mg PO Q12H PRN (Reason: congestion) Qty: 30 RF: 0 Referrals Referrals: Guzman Wells MD [Primary Care Provider] - The scribe's documentation has been prepared under my direction and personally reviewed by me in its entirety. I confirm that the note above accurately reflects all work, treatment, procedures, and medical decision making performed by me.
--- NOTE | 2018-12-09 16:35 | CT Scan Report ---
CT head/brain wo con CT DOSE: 729.78 mGycm HISTORY: Mental status change weakness TECHNIQUE: Multiaxial CT images of the head were performed without the use of intravenous contrast. A dose lowering technique was utilized adhering to the principles of ALARA. Comparison: 07/31/2018 Findings: The paranasal sinuses and mastoid air cells are clear. The calvarium and skull base are int act. The ventricles and sulci are within normal limits. There is no mass, hematoma, midline shift, or acute infarct. Age-related atrophy and chronic small vessel change Impression: No acute intracranial abnormality. Chronic changes as described. The above report was generated using voice recognition software. It may contain grammatical, syntax or spelling errors. Electronically signed by: Nando Menard M.D. 12/09/2018 4:34 PM
[2018-12-09 16:59] LABS: Basophils # (auto) 0.04 K/uL (0-0.2); Basophils % (auto) 0.4 %; Eosinophils # (auto) 0.07 K/uL (0-0.5); Eosinophils % (auto) 0.7 %; Hematocrit (blood only) 43.5 % (37-47); Immature Granulocytes # (auto) 0.04 K/uL (0.00-0.02); Immature Granulocytes % (auto) 0.4 %; Lymphocytes # (auto) 0.79 K/uL (1.2-3.4); Lymphocytes % (auto) 8.2 %; Mean Corpuscular Hgb Conc 32.2 g/dL (32-36); Mean Corpuscular Volume 88.4 fL (80-100); Mean Platelet Volume 9.9 fL (7.4-10.4); Monocytes # (auto) 1.02 K/uL (0.11-0.59); Monocytes % (auto) 10.6 %; Neutrophils # (auto) 7.68 K/uL (1.4-6.5); Neutrophils % (auto) 79.7 %; Platelet Count 367 K/uL (130-400); RDW Coefficient of Variation 13.9 % (11.5-14.5); Red Blood Count 4.92 M/uL (4.2-5.4); White Blood Count 9.64 K/uL (4.8-10.8)
[2018-12-09 17:19] LABS: Appearance Urine Clear (Clear); Bacteria Urine Automated Negative (Negative); Bilirubin Urine Negative (Negative); Color Urine Dark Yellow; Epithelial Cell Urine Auto 20-30 /lpf (0-5); Glucose Urine UA Negative (Negative); Ketones Urine Trace (Negative); Leukocyte Esterase Urine Trace (Negative); Nitrite Urine Negative (Negative); Protein Urine Negative (Negative); Specific Gravity Urine 1.016 (1.000-1.030); Urobilinogen Urine Negative (Negative); pH Urine 7.5 (4.5-7.5)
[2018-12-09 17:46] LABS: Alanine Aminotransferase 12 U/L (12-78); Albumin Level 2.7 gm/dl (3.4-5.0); Aspartate Aminotransferase 14 U/L (15-37); BUN Creatinine Ratio 13.8 (10-20); Blood Urea Nitrogen 7 mg/dl (7-18); Carbon Dioxide 30 mmol/L (21-32); Chloride 100 mmol/L (98-107); Creatinine Clr Calc Pharmacy 50.2 ml/min; Est GFR (Non-African American) 83.7; Glucose 105 mg/dl (70-99); Magnesium 1.8 mg/dl (1.8-2.4); Potassium 4.3 mmol/L (3.5-5.1); Sodium 135 mmol/L (136-145)
[2018-12-09 17:58] LABS: Albumin Globulin Ratio 0.8 (0.9-2); Alkaline Phosphatase 65 U/L (45-117); Bilirubin,Total 0.4 mg/dl (0.2-1); Globulin 3.2 gm/dl (2.5-4.0); Total Protein 5.9 gm/dl (6.4-8.2); Troponin I < 0.015 ng/ml (0-0.045)
[2018-12-09] MEDS ORDERED: cefTRIAXone SODIUM 1,000 MG/50 ML BAG IV STA (18:08)
[2018-12-09] MEDS ORDERED: SODIUM CHLORIDE 0.9% 500 ML IV STA (18:08)
[2018-12-09] MEDS ORDERED: DOXYCYCLINE HYCLATE 100 MG CAP PO STA (18:13)
--- NOTE | 2018-12-09 19:49 | History & Physical Report ---
Date of Service December 09, 2018 Assessment & Plan (1) Pneumonia: Patient is a very minor infiltrate at the left base. She will be placed on ceftriaxone she is given doxycycline ER cover atypicals this will be continued blood cultures obtained (2) Chronic diastolic CHF (congestive heart failure): Patient has a history of chronic diastolic heart failure however she appears clinically dehydrated she will be hydrated cautiously, she is typically not on any cardiac medications She is maintained on aspirin for secondary risk prevention (3) GERD (gastroesophageal reflux disease): (4) Chronic respiratory failure: Patient usually takes Brio Ellipta will substitute Advair and include duo nebs at this time (5) Physical deconditioning: Patient with PT OT evaluation she is open to subacute rehab or possibly assisted living facility (6) DVT prophylaxis: DVT prevention is Lovenox History of Present Illness Primary Care Provider: Guzman Wells MD Patient presents with weakness from her home she said her current cough over the last few days has had decreased appetite over the last few days. Reportedly the patient was discharged from [facility] for subacute rehab and towards the end of October she lives alone she does have a granddaughter in the area but very little support. Her son is at the bedside to drive up from [facility]. The patient understands that she is too weak to be at home by herself and is now interested in considering alternatives. In the emergency department she was found to have left lower lobe pneumonia a mildly abnormal urinalysis she traditionally has some respiratory distress leading to a COPD diagnosis and has been using nebulizer at home more frequently Allergies Allergy/AdvReac Type Severity Reaction Status Date / Time cat dander Allergy Intermediate ITCHY, RED Verified 12/09/18 16:23 RASH, CONGESTION dog dander Allergy Intermediate ITCHY, RED Verified 12/09/18 16:23 RASH, CONGESTION horse dander Allergy Intermediate ITCHY, RED Verified 12/09/18 16:23 RASH, CONGESTION rabbit dander Allergy Intermediate ITCHY, RED Verified 12/09/18 16:23 RASH, CONGESTION Home Medications Home Medications Medication Instructions Recorded Confirmed Type cholecalciferol (vitamin D3) 2,000 unit PO DAILY #0 tab 07/13/15 12/09/18 History [Vitamin D3] melatonin 1 mg PO HS 30 Days #30 tab 07/13/15 12/09/18 History aspirin 325 mg PO DAILY PRN 07/31/18 12/09/18 History alendronate 70 mg PO WK 10/03/18 12/09/18 History guaifenesin [Mucinex] 600 mg PO Q12H PRN #30 tab 10/19/18 12/09/18 Rx albuterol sulfate [ProAir HFA] 2 puff INHALATION Q4 PRN 12/09/18 12/09/18 History albuterol sulfate [Ventolin HFA] 2 puff INHALATION Q4 PRN 12/09/18 12/09/18 History capsaicin [Zostrix-HP] 1 applic TOPICAL QID 12/09/18 12/09/18 History doxycycline hyclate 100 mg PO BID 10 Days #20 tab 12/09/18 Rx fluticasone-vilanterol [Breo 1 inh INHALATION DAILY 12/09/18 12/09/18 History Ellipta] multivitamin 1 tab PO DAILY 12/09/18 12/09/18 History ondansetron HCl [Zofran] 4 mg PO Q6 PRN #10 tab 12/09/18 Rx Past Med/Surg History Family History Other No significant family history Social History marital status: / Current Living Situation: Alone Other Information That Helps Us Care for You: No Feels Safe at Home: Yes Safety Concerns: Feels Safe At This Time Smoking Status: Never smoker Do You Dip or Chew Tobacco: No Hx Alcohol Use: Yes Alcohol type: wine Alcohol Intake Frequency: holidays/ special occasions only Hx Substance Use: No Beliefs That Will Affect Care: None Preferred Language: Estonian Communication Ability: Effective Service Station Manager Required: No Review of Systems ROS: Frail weak and thin No double vision blurry vision No problems with speech or swallowing No palpitations, chest pain or pressure Shortness of breath cough No abdominal pain nausea vomiting diarrhea changes in appetite or weight No burning urine urine frequency or changes in color frequently urinary incontinent No focal joint pain or muscle pain No skin rashes or oral lesions No unusual bruising or bleeding No focused back pain or numbness or loss of strength No changes in memory or confusion Physical Exam 2 Vital Signs (Past 24 Hours): Last Vital Signs Temp 36.4 C L 12/09/18 15:01 Pulse 102 H 12/09/18 17:00 Resp 18 12/09/18 17:00 BP 151/74 H 12/09/18 15:01 Pulse Ox 96 12/09/18 17:00 The patient appeared well nourished and normally developed. Vital signs as documented. Head exam is unremarkable. Oropharynx is clear without thrush Neck is without jugular venous distension, thyromegaly, or lymphademopathy Lungs prolonged expiratory phase monitor crackles at the left base no focal air loss Cardiac exam reveals Rhythm is regular. First and second heart sounds normal. No murmurs Abdominal exam reveals normal bowel sounds, no masses, no organomegaly Extremities are nonedematous and both pedal pulses are normal. she is a somewhat arthritic changes to her hands with ulnar deviation although no formal diagnosis of rheumatoid arthritis Neurologic exam is A&Ox3, no focal deficits, strength is equal bilateral Skin is warm Dry without bruises or lesions Results & Data Diagnostic Findings cxr Chronic change. Superimposed interstitial infiltrate left lung base. CT head no acute changes ECG Rhythm: normal sinus _ (1) GERD (gastroesophageal reflux disease) Esophagitis presence: esophagitis presence not specified Qualified Code(s): K21.9 - Gastro-esophageal reflux disease without esophagitis
[2018-12-09] MEDS ORDERED: ACETAMINOPHEN 325 MG TAB PO PRN (20:52)
[2018-12-09] MEDS ORDERED: ONDANSETRON INJ 2 MG/ML 2 ML VIAL IV PRN (20:52)
[2018-12-09] MEDS ORDERED: ALBUTEROL HFA 8 GM INHALER INH PRN (20:52)
[2018-12-09] MEDS ORDERED: ASPIRIN 325 MG ECTAB PO PRN (20:52)
[2018-12-09] MEDS ORDERED: ALUMINUM/MAGNESIUM SUSP 30 ML UDC PO PRN (20:52)
[2018-12-09] MEDS ORDERED: NON-FORMULARY MEDICATION (Melatonin [Melatonin] 1 MG) PO SCH (21:00)
[2018-12-09] MEDS: CAPSAICIN CR 0.075% 60 GM TUBE EXT SCH ×2 (22:11→22:16)
[2018-12-09] MEDS: FLUTICASONE/SALMETEROL 250/50 (ADVAIR) 14 PUFF/1 INHALER INH SCH (22:11)
[2018-12-09] MEDS: SODIUM CHLORIDE 0.9% 500 ML IV SCH (22:11)
[2018-12-10] MEDS: SODIUM CHLORIDE 0.9% 500 ML IV SCH (04:56)
[2018-12-10] MEDS: DOXYCYCLINE HYCLATE 100 MG in DEXTROSE 5% 100 ML IV SCH ×2 (06:06→17:48)
[2018-12-10 06:55] LABS: BUN Creatinine Ratio 13.7 (10-20); Calcium 8.1 mg/dl (8.5-10.1); Creatinine Clr Calc Pharmacy 73.2 ml/min; Est GFR (African American) 109.8; Est GFR (Non-African American) 94.7; Potassium 3.8 mmol/L (3.5-5.1)
[2018-12-10 07:08] LABS: Partial Thromboplastin Time 26.8 Seconds (21.0-31.0); Prothrombin Time 10.5 Seconds (9.0-12.0)
[2018-12-10] MEDS: MULTIVITAMIN TAB PO SCH (08:09)
[2018-12-10] MEDS: ENOXAPARIN INJ 30 MG/0.3 ML SYR SQ SCH ×2 (08:09→08:13)
[2018-12-10] MEDS: FLUTICASONE/SALMETEROL 250/50 (ADVAIR) 14 PUFF/1 INHALER INH SCH ×3 (08:10→20:37)
[2018-12-10] MEDS: CAPSAICIN CR 0.075% 60 GM TUBE EXT SCH ×4 (08:11→20:37)
--- NOTE | 2018-12-10 11:09 | Hospitalist Progress Note ---
Date of Service December 10, 2018 Assessment & Plan (1) Pneumonia: -Minor infiltrate at the left base. - continue ceftriaxone and doxycycline - BC pending (2) Chronic diastolic CHF (congestive heart failure): - history of chronic diastolic heart failure however she appears clinically dehydrated - cautious hydration - she is typically not on any cardiac medications - continue ASA (3) GERD (gastroesophageal reflux disease): (4) Chronic respiratory failure: Patient usually takes Brio Ellipta will substitute Advair and include duo nebs at this time (5) Physical deconditioning: Patient with PT OT evaluation she is open to subacute rehab or possibly assisted living facility (6) DVT prophylaxis: DVT prevention is Lovenox Subjective Ms. Orellana has a cough but no sob. She otherwise has no complaints Review of Systems All systems reviewed & are unremarkable except as noted in HPI & below Physical Exam 2 Vital Signs (Past 24 Hours): Last Vital Signs Temp 36.5 C 12/10/18 07:40 Pulse 91 H 12/10/18 07:40 Resp 16 12/10/18 07:40 BP 145/73 H 12/10/18 07:40 Pulse Ox 93 12/10/18 09:30 Physical Exam: General: no distress Eyes: normal inspection, PERLL Respiratory: chest non tender, clear to auscultation except LLL crackles, no respiratory distress, no accessory muscle use Cardiac: regular rate and rhythm, no rub or gallop, no murmur, no edema, no jvd GI/: active bowel sounds, no abd pain or tenderness, soft, non distended Extremities: normal range of motion, normal strength, non tender Neuro/Psych: alert and oriented x 3, normal mood and affect Skin: normal color, dry Results & Data Laboratory Results Abnormal lab results 12/09/18 12/09/18 12/09/18 Range/Units 16:33 16:33 17:05 Immature Gran # (Auto) 0.04 H (0.00-0.02) K/uL Neut # (Auto) 7.68 H (1.4-6.5) K/uL Lymph # (Auto) 0.79 L (1.2-3.4) K/uL [place] # (Auto) 1.02 H (0.11-0.59) K/uL Sodium 135 L (136-145) mmol/L BUN (7-18) mg/dl Creatinine 0.54 L (0.6-1.2) mg/dl Glucose 105 H (70-99) mg/dl Calcium (8.5-10.1) mg/dl AST 14 L (15-37) U/L Total Protein 5.9 L (6.4-8.2) gm/dl Albumin 2.7 L (3.4-5.0) gm/dl Albumin/Globulin Ratio 0.8 L (0.9-2) Urine Ketones Trace H (Negative) Ur Leukocyte Esterase Trace H (Negative) Urine RBC (Auto) 5-10 H (0-4) /hpf U Epithel Cells (Auto) 20-30 H (0-5) /lpf 12/10/18 Range/Units 06:01 Immature Gran # (Auto) (0.00-0.02) K/uL Neut # (Auto) (1.4-6.5) K/uL Lymph # (Auto) (1.2-3.4) K/uL [place] # (Auto) (0.11-0.59) K/uL Sodium (136-145) mmol/L BUN 5 L (7-18) mg/dl Creatinine 0.37 L (0.6-1.2) mg/dl Glucose (70-99) mg/dl Calcium 8.1 L (8.5-10.1) mg/dl AST (15-37) U/L Total Protein (6.4-8.2) gm/dl Albumin (3.4-5.0) gm/dl Albumin/Globulin Ratio (0.9-2) Urine Ketones (Negative) Ur Leukocyte Esterase (Negative) Urine RBC (Auto) (0-4) /hpf U Epithel Cells (Auto) (0-5) /lpf _ (1) GERD (gastroesophageal reflux disease) Esophagitis presence: esophagitis presence not specified Qualified Code(s): K21.9 - Gastro-esophageal reflux disease without esophagitis
[2018-12-10] MEDS: PANTOprazole 40 MG TAB PO SCH (14:20)
[2018-12-10] MEDS: ALBUT/IPRATROP 3MG/0.5MG NEB 3 ML VIAL NEB SCH ×2 (17:42→19:15)
[2018-12-10] MEDS: cefTRIAXone SODIUM 1,000 MG in DEXTROSE 5% 50 ML IV SCH (20:37)
[2018-12-11] MEDS: ALBUT/IPRATROP 3MG/0.5MG NEB 3 ML VIAL NEB SCH ×4 (07:16→20:25)
[2018-12-11 07:37] LABS: Hematocrit (blood only) 37.7 % (37-47); Hemoglobin 12.3 g/dL (12.0-16.0); Mean Corpuscular Hgb Conc 32.6 g/dL (32-36); Mean Corpuscular Volume 88.7 fL (80-100); Mean Platelet Volume 9.5 fL (7.4-10.4); Platelet Count 311 K/uL (130-400); RDW Coefficient of Variation 14.1 % (11.5-14.5); RDW Standard Deviation 45.9 fL (36.4-46.3); Red Blood Count 4.25 M/uL (4.2-5.4); White Blood Count 7.13 K/uL (4.8-10.8)
[2018-12-11 08:06] LABS: BUN Creatinine Ratio 19.8 (10-20); Calcium 8.4 mg/dl (8.5-10.1); Creatinine Clr Calc Pharmacy 61.6 ml/min; Est GFR (African American) 103.7; Est GFR (Non-African American) 89.5; Potassium 3.5 mmol/L (3.5-5.1)
[2018-12-11] MEDS: ENOXAPARIN INJ 30 MG/0.3 ML SYR SQ SCH (08:25)
[2018-12-11] MEDS: DOXYCYCLINE HYCLATE 100 MG in DEXTROSE 5% 100 ML IV SCH ×2 (08:25→18:23)
[2018-12-11] MEDS: FLUTICASONE/SALMETEROL 250/50 (ADVAIR) 14 PUFF/1 INHALER INH SCH ×2 (08:25→20:08)
[2018-12-11] MEDS: CAPSAICIN CR 0.075% 60 GM TUBE EXT SCH ×4 (08:26→20:08)
[2018-12-11] MEDS: MULTIVITAMIN TAB PO SCH (08:26)
[2018-12-11] MEDS: PANTOprazole 40 MG TAB PO SCH (08:26)
--- NOTE | 2018-12-11 11:30 | Hospitalist Progress Note ---
Date of Service December 11, 2018 Assessment & Plan (1) Pneumonia: -Minor infiltrate at the left base. - continue ceftriaxone and doxycycline - BC ng (2) Chronic diastolic CHF (congestive heart failure): - history of chronic diastolic heart failure however she appeared clinically dehydrated on admission and was hydrated with IVF - she is typically not on any cardiac medications - continue ASA (3) GERD (gastroesophageal reflux disease): continue protonix (4) Chronic respiratory failure: Patient usually takes Brio Ellipta will substitute Advair and include duo nebs at this time (5) Physical deconditioning: Patient with PT OT evaluation she is open to subacute rehab or possibly assisted living facility (6) DVT prophylaxis: DVT prevention is Lovenox Subjective Ms. Orellana feels somewhat better today. She did describe a brief episode of vertigo yesterday when standing but has not had any further symptoms. She is coughing less. Physical Exam 2 Vital Signs (Past 24 Hours): Last Vital Signs Temp 36.5 C 12/11/18 07:18 Pulse 86 12/11/18 11:02 Resp 16 12/11/18 11:02 BP 179/71 H 12/11/18 07:18 Pulse Ox 94 12/11/18 11:02 Physical Exam: General: no distress Eyes: normal inspection, PERLL Respiratory: chest non tender, clear to auscultation, normal breath sounds, no respiratory distress, no accessory muscle use Cardiac: regular rate and rhythm, no rub or gallop, no murmur, no edema, no jvd GI/: active bowel sounds, no abd pain or tenderness, soft, non distended Extremities: normal range of motion, normal strength, non tender Neuro:oriented x 3, moves all extremities Psych: alert, normal mood and affect Skin: normal color, dry _ (1) GERD (gastroesophageal reflux disease) Esophagitis presence: esophagitis presence not specified Qualified Code(s): K21.9 - Gastro-esophageal reflux disease without esophagitis
[2018-12-11] MEDS: cefTRIAXone SODIUM 1,000 MG in DEXTROSE 5% 50 ML IV SCH (20:07)
[2018-12-12] MEDS: DOXYCYCLINE HYCLATE 100 MG in DEXTROSE 5% 100 ML IV SCH ×2 (05:11→17:30)
[2018-12-12] MEDS ORDERED: COUGH DROP (SUGAR FREE) LOZ 24 LOZ/1 BOX BUCCAL PRN (05:48)
[2018-12-12] MEDS: ALBUT/IPRATROP 3MG/0.5MG NEB 3 ML VIAL NEB SCH ×4 (07:14→20:06)
[2018-12-12] MEDS: FLUTICASONE/SALMETEROL 250/50 (ADVAIR) 14 PUFF/1 INHALER INH SCH ×2 (08:39→19:58)
[2018-12-12 08:40] LABS: BUN Creatinine Ratio 29.7 (10-20); Calcium 8.6 mg/dl (8.5-10.1); Creatinine Clr Calc Pharmacy 77.4 ml/min; Est GFR (African American) 111.8; Est GFR (Non-African American) 96.5; Potassium 3.5 mmol/L (3.5-5.1)
[2018-12-12] MEDS: ENOXAPARIN INJ 30 MG/0.3 ML SYR SQ SCH (08:40)
[2018-12-12] MEDS: MULTIVITAMIN TAB PO SCH (08:40)
[2018-12-12] MEDS: CAPSAICIN CR 0.075% 60 GM TUBE EXT SCH ×4 (08:40→19:58)
[2018-12-12] MEDS: PANTOprazole 40 MG TAB PO SCH (08:40)
--- NOTE | 2018-12-12 11:00 | Hospitalist Progress Note ---
Date of Service December 12, 2018 Assessment & Plan (1) Pneumonia: -Minor infiltrate at the left base. - continue ceftriaxone and doxycycline started 12/09 - ng (2) Chronic diastolic CHF (congestive heart failure): - history of chronic diastolic heart failure however she appeared clinically dehydrated on admission and was hydrated with IVF - she is typically not on any cardiac medications - continue ASA (3) GERD (gastroesophageal reflux disease): continue protonix (4) Chronic respiratory failure: Patient usually takes Brio Ellipta will substitute Advair and include duo nebs at this time (5) Physical deconditioning: Patient with PT OT evaluation she is open to subacute rehab or personal care - CM working on bed at [facility] (6) DVT prophylaxis: DVT prevention is Lovenox Subjective Ms. Orellana was up to a chair, feeling somewhat better. She does feel dizzy with standing but it resolves once she's sitting or laying down. Review of Systems All systems reviewed & are unremarkable except as noted in HPI & below Physical Exam 2 Vital Signs (Past 24 Hours): Last Vital Signs Temp 36.7 C 12/12/18 09:58 Pulse 97 H 12/12/18 09:58 Resp 22 12/12/18 09:58 BP 173/80 H 12/12/18 09:58 Pulse Ox 93 12/12/18 09:58 Physical Exam: General: no distress Eyes: normal inspection, PERLL Respiratory: chest non tender, crackles left base, no respiratory distress, no accessory muscle use Cardiac: regular rate and rhythm, no rub or gallop, no murmur, no edema, no jvd GI/: active bowel sounds, no abd pain or tenderness, soft, non distended Extremities: normal range of motion, normal strength, non tender Neuro/Psych: alert and oriented x 3, normal mood and affect Skin: normal color, dry Results & Data Laboratory Results Abnormal lab results 12/12/18 Range/Units 07:46 Sodium 135 L (136-145) mmol/L Creatinine 0.35 L (0.6-1.2) mg/dl BUN/Creatinine Ratio 29.7 H (10-20) Glucose 100 H (70-99) mg/dl _ (1) GERD (gastroesophageal reflux disease) Esophagitis presence: esophagitis presence not specified Qualified Code(s): K21.9 - Gastro-esophageal reflux disease without esophagitis
[2018-12-12] MEDS: cefTRIAXone SODIUM 1,000 MG in DEXTROSE 5% 50 ML IV SCH (19:58)
[2018-12-13] MEDS: DOXYCYCLINE HYCLATE 100 MG in DEXTROSE 5% 100 ML IV SCH (05:49)
[2018-12-13 07:11] LABS: Basophils # (auto) 0.04 K/uL (0-0.2); Basophils % (auto) 0.6 %; Eosinophils # (auto) 0.19 K/uL (0-0.5); Eosinophils % (auto) 2.9 %; Hematocrit (blood only) 38.7 % (37-47); Immature Granulocytes # (auto) 0.04 K/uL (0.00-0.02); Immature Granulocytes % (auto) 0.6 %; Lymphocytes # (auto) 1.04 K/uL (1.2-3.4); Mean Corpuscular Hgb Conc 33.6 g/dL (32-36); Mean Corpuscular Volume 87.8 fL (80-100); Mean Platelet Volume 9.2 fL (7.4-10.4); Monocytes # (auto) 0.86 K/uL (0.11-0.59); Monocytes % (auto) 13.2 %; Neutrophils # (auto) 4.33 K/uL (1.4-6.5); Neutrophils % (auto) 66.7 %; Platelet Count 337 K/uL (130-400); RDW Coefficient of Variation 14.2 % (11.5-14.5); RDW Standard Deviation 45.8 fL (36.4-46.3); Red Blood Count 4.41 M/uL (4.2-5.4)
[2018-12-13 07:47] LABS: BUN Creatinine Ratio 29.7 (10-20); Calcium 9.3 mg/dl (8.5-10.1); Creatinine Clr Calc Pharmacy 90.1 ml/min; Est GFR (African American) 116.4; Est GFR (Non-African American) 100.4; Potassium 4.1 mmol/L (3.5-5.1)
[2018-12-13] MEDS: PANTOprazole 40 MG TAB PO SCH (08:17)
[2018-12-13] MEDS: MULTIVITAMIN TAB PO SCH (08:17)
[2018-12-13] MEDS: FLUTICASONE/SALMETEROL 250/50 (ADVAIR) 14 PUFF/1 INHALER INH SCH ×2 (08:17→21:31)
[2018-12-13] MEDS: ENOXAPARIN INJ 30 MG/0.3 ML SYR SQ SCH (08:18)
[2018-12-13] MEDS: CAPSAICIN CR 0.075% 60 GM TUBE EXT SCH ×4 (08:18→21:31)
[2018-12-13] MEDS: methylPREDNISolone 40 MG in SYRINGE 0 ML IV SCH ×2 (15:05→21:31)
[2018-12-13] MEDS: ALBUT/IPRATROP 3MG/0.5MG NEB 3 ML VIAL NEB SCH ×3 (15:08→19:19)
--- NOTE | 2018-12-13 16:05 | Hospitalist Progress Note ---
Date of Service December 13, 2018 Assessment & Plan (1) Pneumonia: - CXR showed moderate emphysema, interstitial infiltrate left lung base. - BC and UC negative. - Continue Ceftriaxone and Doxycycline for empiric coverage. - Treatment for COPD exacerbation as noted below. (2) COPD (chronic obstructive pulmonary disease): - PFTs February 2017 showed mild to moderate obstruction, reduced DLCO. - Start Solu-medrol 40 mg IV q8hr for treatment of COPD exacerbation. - Duonebs QID scheduled; hold home Breo-Ellipta (non-formulary), started Advair BID. - Continue abx as noted above. (3) Chronic diastolic CHF (congestive heart failure): - H/o diastolic heart failure. - Caution with continuous IV fluids. (4) GERD (gastroesophageal reflux disease): - Previous imaging showed debris in esophagus, concern for aspiration. - Continue slippery, soft diet. - Protonix 40 mg qAM. (5) Chronic respiratory failure: - Holding home Breo-Ellipta. - Started Advair and Duonebs as inpatient. (6) Physical deconditioning: - PT/OT ordered - discharge to [facility], [facility], pending placement. (7) Kyphosis: - Has severe kyphosis, may be related to restrictive lung disease. (8) Hyponatremia: - Na level remains low, has h/o SIADH. - Will continue to monitor BMP qAM. (9) DVT prophylaxis: - Lovenox. Dispo: Discharge to SNF pending placement. Supervising Physician Co-Signing Physician Notes PA Supervision Note: I personally saw and examined the patient. I verified all sauer points and agree with JOEY Marcial with the following exceptions and/or additions: Pt feeling better, still some productive cough with SOB. VItals reviewed thin, NAD, coughing RRR no mgr severe kyphosis Lungs with +crackles left base, therwise slightly diminished throughout, no wheezing Abd +BS soft TN ND Ext no edema 88 yo female well known to me with COPD exacerbation, PNA, continue abx, starting steroids today to help with cough and SOB given h/o COPD Subjective Pt. complains of shortness of breath during rounds today. She states SOB has been an ongoing problem for the last few months. Has SOB at rest and with exertion. Has h/o COPD, will start steroids today. Denies chest pain, palpitations, LE edema. Plan for discharge to rehab pending acceptance. Review of Systems All systems reviewed & are unremarkable except as noted in HPI & below Constitutional: no fever and no chills Ear, Nose, Mouth, Throat: no nasal congestion, no sinus pain/pressure and no sore throat Respiratory: + cough, + dyspnea and + dyspnea on exertion Cardiovascular: no chest pain, no palpitations and no edema Gastrointestinal: no abdominal pain, no nausea and no constipation Genitourinary (Female): no difficulty urinating Allergy / Immunological: no rash Physical Exam 2 Vital Signs (Past 24 Hours): Last Vital Signs Temp 36.6 C 12/13/18 15:11 Pulse 96 H 12/13/18 15:11 Resp 20 12/13/18 15:11 BP 137/71 12/13/18 15:11 Pulse Ox 95 12/13/18 15:11 Physical Exam: General: Resting comfortably in no apparent distress HEENT: NC/AT; PERRLA with EOMI; Crozier conjunctiva, MMM Neck: Supple and nontender Cardiac: RRR Lungs: crackles in left lung base, otherwise clear throughout. Abdomen: Bowel normoactive X 4; Nontender to palpation Extremities: Warm. No cyanosis or edema present Neuro: No focal weakness Skin: No rash Results & Data Laboratory Results 12/13/18 12/13/18 Range/Units 06:57 06:57 WBC 6.50 (4.8-10.8) K/uL RBC 4.41 (4.2-5.4) M/uL Hgb 13.0 (12.0-16.0) g/dL Hct 38.7 (37-47) % MCV 87.8 (80-100) fL MCH 29.5 (25-34) pg MCHC 33.6 (32-36) g/dL RDW Std Deviation 45.8 (36.4-46.3) fL RDW Coeff of Angelique 14.2 (11.5-14.5) % Plt Count 337 (130-400) K/uL MPV 9.2 (7.4-10.4) fL Immature Gran % (Auto) 0.6 % Neut % (Auto) 66.7 % Lymph % (Auto) 16.0 % [place] % (Auto) 13.2 % Eos % (Auto) 2.9 % Baso % (Auto) 0.6 % Immature Gran # (Auto) 0.04 H (0.00-0.02) K/uL Neut # (Auto) 4.33 (1.4-6.5) K/uL Lymph # (Auto) 1.04 L (1.2-3.4) K/uL [place] # (Auto) 0.86 H (0.11-0.59) K/uL Eos # (Auto) 0.19 (0-0.5) K/uL Baso # (Auto) 0.04 (0-0.2) K/uL Sodium 134 L (136-145) mmol/L Potassium 4.1 D (3.5-5.1) mmol/L Chloride 99 (98-107) mmol/L Carbon Dioxide 31 (21-32) mmol/L Anion Gap 4.0 (3-11) BUN 9 (7-18) mg/dl Creatinine 0.31 L (0.6-1.2) mg/dl Est Cr Clr Drug Dosing 90.1 ml/min Est GFR ( Amer) 116.4 Est GFR (Non-Af Amer) 100.4 BUN/Creatinine Ratio 29.7 H (10-20) Glucose 99 (70-99) mg/dl Calcium 9.3 (8.5-10.1) mg/dl _ (1) GERD (gastroesophageal reflux disease) Esophagitis presence: esophagitis presence not specified Qualified Code(s): K21.9 - Gastro-esophageal reflux disease without esophagitis
[2018-12-13] MEDS: cefTRIAXone SODIUM 1,000 MG in DEXTROSE 5% 50 ML IV SCH (21:31)
[2018-12-13] MEDS: DOXYCYCLINE HYCLATE 100 MG CAP PO SCH (21:32)
[2018-12-14] MEDS: methylPREDNISolone 40 MG in SYRINGE 0 ML IV SCH (06:16)
[2018-12-14] MEDS: ALBUT/IPRATROP 3MG/0.5MG NEB 3 ML VIAL NEB SCH ×2 (07:11→11:20)
[2018-12-14 08:13] LABS: Hematocrit (blood only) 43.5 % (37-47); Hemoglobin 14.5 g/dL (12.0-16.0); Immature Granulocytes # (auto) 0.02 K/uL (0.00-0.02); Immature Granulocytes % (auto) 0.4 %; Lymphocytes # (auto) 0.94 K/uL (1.2-3.4); Lymphocytes % (auto) 16.7 %; Mean Corpuscular Hgb Conc 33.3 g/dL (32-36); Mean Corpuscular Volume 86.1 fL (80-100); Mean Platelet Volume 9.9 fL (7.4-10.4); Monocytes # (auto) 0.43 K/uL (0.11-0.59); Monocytes % (auto) 7.6 %; Neutrophils # (auto) 4.24 K/uL (1.4-6.5); Neutrophils % (auto) 75.3 %; Platelet Count 418 K/uL (130-400); RDW Standard Deviation 43.8 fL (36.4-46.3); Red Blood Count 5.05 M/uL (4.2-5.4); White Blood Count 5.63 K/uL (4.8-10.8)
[2018-12-14 08:32] LABS: BUN Creatinine Ratio 24.1 (10-20); Calcium 9.4 mg/dl (8.5-10.1); Creatinine Clr Calc Pharmacy 53.3 ml/min; Est GFR (African American) 98.2; Est GFR (Non-African American) 84.7; Potassium 4.1 mmol/L (3.5-5.1)
[2018-12-14] MEDS: FLUTICASONE/SALMETEROL 250/50 (ADVAIR) 14 PUFF/1 INHALER INH SCH ×2 (08:43→09:22)
[2018-12-14] MEDS: MULTIVITAMIN TAB PO SCH (08:43)
[2018-12-14] MEDS: DOXYCYCLINE HYCLATE 100 MG CAP PO SCH (08:44)
[2018-12-14] MEDS: CAPSAICIN CR 0.075% 60 GM TUBE EXT SCH ×2 (08:44→08:52)
[2018-12-14] MEDS: ENOXAPARIN INJ 30 MG/0.3 ML SYR SQ SCH (08:45)
[2018-12-14] MEDS ORDERED: PANTOprazole 40 MG TAB PO SCH (09:00)
--- NOTE | 2018-12-14 12:22 | Discharge Summary ---
Date of Service December 14, 2018 Admission HPI Per Admitting Provider Patient presents with weakness from her home she said her current cough over the last few days has had decreased appetite over the last few days. Reportedly the patient was discharged from [facility] for subacute rehab and towards the end of October she lives alone she does have a granddaughter in the area but very little support. Her son is at the bedside to drive up from [facility]. The patient understands that she is too weak to be at home by herself and is now interested in considering alternatives. In the emergency department she was found to have left lower lobe pneumonia a mildly abnormal urinalysis she traditionally has some respiratory distress leading to a COPD diagnosis and has been using nebulizer at home more frequently Admission Exam Per Admitting Provider The patient appeared well nourished and normally developed. Vital signs as documented. Head exam is unremarkable. Oropharynx is clear without thrush Neck is without jugular venous distension, thyromegaly, or lymphademopathy Lungs prolonged expiratory phase monitor crackles at the left base no focal air loss Cardiac exam reveals Rhythm is regular. First and second heart sounds normal. No murmurs Abdominal exam reveals normal bowel sounds, no masses, no organomegaly Extremities are nonedematous and both pedal pulses are normal. she is a somewhat arthritic changes to her hands with ulnar deviation although no formal diagnosis of rheumatoid arthritis Neurologic exam is A&Ox3, no focal deficits, strength is equal bilateral Skin is warm Dry without bruises or lesions Principal Diagnosis Pneumonia/COPD Exacerbation Discharge Exam General: Resting comfortably in no apparent distress HEENT: NC/AT; PERRLA with EOMI; [place] conjunctiva, MMM Neck: Supple and nontender Cardiac: RRR Lungs: on room air, clear throughout all salas Abdomen: Bowel normoactive X 4; Nontender to palpation Extremities: Warm. No cyanosis or edema present Neuro: No focal weakness Skin: No rash Discharge Data Allergies Allergy/AdvReac Type Severity Reaction Status Date / Time cat dander Allergy Intermediate ITCHY, RED Verified 12/09/18 16:23 RASH, CONGESTION dog dander Allergy Intermediate ITCHY, RED Verified 12/09/18 16:23 RASH, CONGESTION horse dander Allergy Intermediate ITCHY, RED Verified 12/09/18 16:23 RASH, CONGESTION rabbit dander Allergy Intermediate ITCHY, RED Verified 12/09/18 16:23 RASH, CONGESTION Consultations 12/09/18 19:11 ED Decision to Admit Stat 12/09/18 20:52 Consult Case Management - Discharge Planning Routine Ordered Studies 12/09/18 15:18 CT head/brain wo con Stat Hospital Course (1) Pneumonia: Pt. was admitted for weakness and decreased appetite likely related to pneumonia. CXR showed moderate emphysema, interstitial lung base infiltrate. BC and UC were negative. Ceftriaxone and Doxycycline were started for empiric coverage. She was converted to PO Doxy/Cefdinir at discharge to complete a 7 day course. (2) COPD (chronic obstructive pulmonary disease): PFTs February 2017 showed mild to moderate obstruction, reduced DLCO. Duonebs were scheduled QID with Advair BID. Home Breo-Ellipta was held and will be resumed at discharge. Pt. will complete a course of abx as noted above. Solu- medrol was started on 12/13/18 due to SOB, concern for COPD exacerbation. She will complete a Prednisone taper as an outpatient. (3) Chronic diastolic CHF (congestive heart failure): H/o diastolic heart failure. No evidence of acute heart failure during this admission. (4) GERD (gastroesophageal reflux disease): Previous imaging showed debris in esophagus, concern for aspiration. Soft , slippery diet was ordered along with PPI daily. (5) Chronic respiratory failure: Holding home Breo-Ellipta. Started Advair and Duonebs as inpatient. (6) Physical deconditioning: PT/OT recommended inpt rehab -- she will be discharged to [facility]. (7) Kyphosis: Has severe kyphosis, may be related to restrictive lung disease. (8) Hyponatremia: Na level was low during this admission. She has a h/o SIADH. A 1500 cc fluid restriction was started. She will need ongoing lab work to monitor Na levels. (9) DVT prophylaxis: Lovenox was ordered. Patient was stable for discharge to [facility] on 12/14/2018. A follow up with pulm will be scheduled. Total Time Total Time Spent Total Time Spent (In Minutes): >30 minutes Total Time Includes: Examination of the Patient, Discharge Planning, Medication Reconciliation and Communication With Other Providers Discharge Plan Discharge Items Patient Disposition: Transfer [facility] Reason For Visit: PNEUMONIA Discharge Diagnosis: Pneumonia/COPD Exacerbation Condition: Good Discharge Goals: Improve function, Increase independence, Improve nutritional status and Prevent disease Activity: As commented below Exercise/Sports: Gradually increase as tolerated Non-emergency contact: Primary Care Provider Call non-emergency contact if: you have any medication questions, your symptoms worsen, your pain is worsening and you have a fever Follow-up/Referrals: Abdirizak Seaman PA-C [Physician Fluid Dynamicist] - 12/21/18 2:30 pm (Please, follow up at [facility] Pulmonology Office with Arnold Seaman PA-C on ThursdayDecember 21 at 2:30 pm. *This office is located in [address] of [facility] [employer] [facility] - big building next to this hospital. If you need to change this appointment, call the office at [phone].) Diet: Regular Fluids: 1500ml (6 cups) Addtl Provider Instructions: 1. Pneumonia/COPD Exacerbation * Please continue Doxycycline 100 mg twice daily to complete a 7 day course ( first dose this evening, last dose on 12/16/2018) * Please continue Cefdinir 300 mg twice daily to complete a 7 day course (end date: 12/16/2018) * Please resume home inhalers as prescribed. * Continue a steroid taper as follows: - Prednisone 60 mg twice daily for 2 days. - Prednisone 50 mg twice daily for 2 days. - Prednisone 40 mg twice daily for 2 days. - Prednisone 30 mg twice daily for 2 days. - Prednisone 20 mg twice daily for 2 days. - Prednisone 10 mg twice daily for 2 days. - Prednisone 10 mg daily for 2 days. * A follow up appointment will be scheduled with the pulmonary service over the next 2-3 weeks. 2. GERD * Please continue a soft diet due to concern for aspiration. * Continue Protonix 40 mg daily. 3. Hyponatremia * Sodium level has been decreasing during this admission. * Due to history of SIADH, please monitor sodium levels at least twice weekly. * Continue a 1500 cc fluid restriction. 4. Please go to the ER if you develop the following: * Chest pain or increased shortness of breath. * Watery diarrhea in the setting of antibiotics. Prescriptions: New doxycycline hyclate 100 mg Capsule 100 mg PO BID 3 Days Qty: 6 RF: 0 prednisone 10 mg tablet 10 mg PO BID Qty: 86 RF: 0 cefdinir 300 mg capsule 300 mg PO BID 3 Days Qty: 6 RF: 0 Continue cholecalciferol (vitamin D3) [Vitamin D3] 1,000 unit Capsule 2,000 unit PO DAILY Qty: 0 RF: 0 melatonin 1 mg Tablet 1 mg PO HS 30 Days Qty: 30 RF: 2 multivitamin Tablet 1 tab PO DAILY RF: 0 albuterol sulfate [ProAir HFA] 90 mcg/actuation Hfa Aerosol Inhaler 2 puff INHALATION Q4 PRN (Reason: Shortness Of Breath Or Wheezing) RF: 0 albuterol sulfate [Ventolin HFA] 90 mcg/actuation Hfa Aerosol Inhaler 2 puff INHALATION Q4 PRN (Reason: Shortness Of Breath Or Wheezing) RF: 0 capsaicin [Zostrix-HP] 0.1 % Cream 1 applic TOPICAL QID RF: 0 fluticasone-vilanterol [Breo Ellipta] 100-25 mcg/dose Blister With Device 1 inh INHALATION DAILY RF: 0 aspirin 325 mg Tablet 325 mg PO DAILY PRN (Reason: Pain) RF: 0 alendronate 70 mg tablet 70 mg PO WK RF: 0 guaifenesin [Mucinex] 600 mg tablet extended release 12hr 600 mg PO Q12H PRN (Reason: congestion) Qty: 30 RF: 0 Stand-Alone Forms: [facility] Discharge Orders: Discharge Order (Routine); Ordered 12/14/18 Ordered By: Yael Marcial Skilled Items Patient informed of condition?: Yes DNR: No Discharge Level of Care: Skilled Communicable Disease: No Discharge Prognosis: Improving Admission Data Admit Date/Time: 12/10/18 11:16 Attending Provider: Naomi Shi Admit Provider: Crow Sugn Primary Care Provider: Guzman Wells Other Providers: Balbir Vicente Service: Medical Other Interventions: Discharge Summary Assessment (RN) Last Done: 12/14/18 10:40 Pending Studies at Discharge: Yes Studies:: Blood cultures 12/09/18: negative to date. DC Date/Time DO NOT enter until pt leaves facility: 12/14/18 12:52 Supervising Physician Co-Signing Physician Notes PA Supervision Note: I personally saw and examined the patient. I verified all sauer points and agree with JOEY Marcial with the following exceptions and/or additions: Pt feeling much better with the addition of steroids VItals reviewed thin, NAD, no cough RRR no mgr severe kyphosis Lungs with minimal +crackles left base, otherwise much improved breath sounds throughout from previous Abd +BS soft TN ND Ext no edema 88 yo female well known to me with COPD exacerbation, PNA, continue abx, doing much better -Stable for discharge to rehab/halfway with steroid taper, continue bronchodilators, and finish out antibiotics for pneumonia -Should have chest x-ray repeated in 4-6 weeks to ensure resolution of infiltrate
== END 2018-12-14 12:52 | DRG 194 ==
LOC: 2N 14:57 → ED 14:57 → 2N 20:42 → SUATTDRO 12-10 11:16 → 4W 12-12 21:52

== ENCOUNTER 2019-03-02 11:41 | Inpatient (IN) ==
[2019-03-02 12:25] LABS: Hematocrit (blood only) 41.3 % (37-47); Hemoglobin 14.2 g/dL (12.0-16.0); Mean Corpuscular Hgb Conc 34.4 g/dL (32-36); Mean Platelet Volume 9.6 fL (7.4-10.4); Platelet Count 452 K/uL (130-400); RDW Standard Deviation 43.5 fL (36.4-46.3); Red Blood Count 4.86 M/uL (4.2-5.4); White Blood Count 20.61 K/uL (4.8-10.8)
[2019-03-02 12:34] LABS: Prothrombin Time 10.4 Seconds (9.0-12.0)
[2019-03-02 12:42] LABS: Albumin Level 2.6 gm/dl (3.4-5.0); BUN Creatinine Ratio 42.1 (10-20); Calcium 9.6 mg/dl (8.5-10.1); Creatinine Clr Calc Pharmacy 56.5 ml/min; Est GFR (African American) 102.2; Est GFR (Non-African American) 88.2; Potassium 4.6 mmol/L (3.5-5.1)
[2019-03-02 12:53] LABS: Albumin Globulin Ratio 0.6 (0.9-2); Bilirubin,Total 0.3 mg/dl (0.2-1); Globulin 4.1 gm/dl (2.5-4.0); Total Protein 6.7 gm/dl (6.4-8.2); Troponin I 0.347 ng/ml (0-0.045)
[2019-03-02 12:57] LABS: Immature Granulocytes % (auto) 0.5 %; Lymphocytes # (auto) 1.49 K/uL (1.2-3.4); Lymphocytes % (auto) 7.2 %; Monocytes # (auto) 0.79 K/uL (0.11-0.59); Monocytes % (auto) 3.8 %; Neutrophils # (auto) 18.23 K/uL (1.4-6.5); Neutrophils % (auto) 88.5 %
[2019-03-02] MEDS ORDERED: methylPREDNISolone 125 MG/2 ML VIAL IV STA (13:05)
[2019-03-02] MEDS ORDERED: FUROSEMIDE 40 MG/4 ML VIAL IV STA (13:06)
[2019-03-02] MEDS: ALBUT/IPRATROP 3MG/0.5MG NEB 3 ML VIAL NEB STA ×2 (13:19→13:35)
--- NOTE | 2019-03-02 13:29 | XRay Report ---
XR chest 1V portable CLINICAL HISTORY: 88 years-old Female presenting with sob. TECHNIQUE: Portable upright AP view of the chest was obtained. COMPARISON: 02/26/2019. FINDINGS: The patient is rotated. Atherosclerosis of the aortic arch. Cardiac silhouette normal in size. Hetero geneity of lung parenchyma with patchy opacities in the left upper and mid lung.e no large effusion o r pneumothorax. Scoliotic curvature and extensive degenerative changes of the spine. Degenerative leonardo nges of bilateral glenohumeral joints. Suspected underlying osteopenia. IMPRESSION: 1. Interval development of patchy infiltrates in the left upper and mid lung concerning for pneumoni a. This is superimposed on chronic lung disease. Electronically signed by: Guzman Aponte M.D. 03/02/2019 1:28 PM
[2019-03-02] MEDS ORDERED: VANCOMYCIN CONSULT ACTIVE PRN (13:32)
[2019-03-02] MEDS ORDERED: VANCOMYCIN CONSULT ACTIVE ONE (13:32)
[2019-03-02] MEDS ORDERED: VANCOMYCIN HCL 1,000 MG in SODIUM CHLORIDE 0.9% 500 ML IV ONE (13:32)
[2019-03-02] MEDS ORDERED: CEFEPIME 1,000 MG in SYRINGE 0 ML IV STA (13:32)
[2019-03-02] MEDS ORDERED: LORazepam 0.25 MG/0.5 ML VIAL IV STA (13:32)
[2019-03-02] MEDS ORDERED: SODIUM CHLORIDE 0.9% 1000ML 1,000 ML IV SCH (13:45)
[2019-03-02 13:54] LABS: HCO3 ABG 31 mmol/L (19-24); Oxygen Saturation ABG 98.2 % (90-95); PCO2 ABG 53 mmHg (35-46); PO2 ABG 116 mm/Hg (80-95); pH ABG 7.38 (7.35-7.45)
[2019-03-02 14:04] LABS: Allen Test Pos (Pos)
--- NOTE | 2019-03-02 15:18 | History & Physical Report ---
Date of Service March 02, 2019 Assessment & Plan (1) Acute respiratory failure with hypoxia: This is an 88-year-old female resident of [facility] with a PMH of COPD, diastolic HF, chronic hyponatremia and GERD who presents with shortness of breath x 4 days and was found to have acute respiratory failure with hypoxia in the setting of possible hospital-acquired pneumonia, influenza A and COPD exacerbation. -Admitted to ICU, plan to continue BiPAP for now and intubate if needed -Management per gummed tape press operator (2) Sepsis: (3) PNA (pneumonia): Meets sepsis criteria with leukocytosis of 20.6K, tachypnea at 38 and tachycardic with HR of 120 -CXR with interval development of patchy infiltrates on left upper and midlung -Blood cultures obtained -Lactate, pro-calcitonin within normal limits -Continue empiric coverage with cefepime and bank (4) Influenza A: Tamiflu, supportive measures -Droplet precautions (5) COPD (chronic obstructive pulmonary disease): Continue albuterol, ipratropium inh, solu-medrol (6) Elevated troponin: Troponin elevation of 0.347, likely demand ischemia -No chest pain or acute EKG changes -Trend troponin (7) Hyponatremia: Chronic, history of SIADH -Has been on fluid restriction of 1.5 L in the past (8) Chronic diastolic CHF (congestive heart failure): Appears euvolemic. Received both fluids and IV Lasix in ED -BNP elevated but no evidence on physical exam or CXR to suggest volume overload -Continue monitoring volume status closely (9) GERD (gastroesophageal reflux disease): Continue PPI DVT Ppx: SQ heparin Code status: FULL per lengthy discussion with patient PCP: Monika Dispo: Admitted to ICU. Discharge planning ordered. Patient seen in collaboration with Dr. Rico. Please see addendum. Will be followed by Dr. Burdick for remainder of admission. History of Present Illness Chief Complaint: respiratory distress Primary Care Provider: Francisco Javier Frank This is an 88-year-old female resident of [facility] with a PMH of COPD, diastolic HF, chronic hyponatremia and GERD who presents with shortness of breath x 4 days. Patient is on BiPAP and only able to respond with yes and no, so history is primarily obtained by staff at [facility]. Patient became short of breath on Thursday, with a low-grade fever and dry cough. Complained of progressive weakness and remained short of breath despite increased nebulizer treatments. Was evaluated in the ED on Thursday but was not short of breath at the time, and was discharged back to [facility]. Symptoms continued to worsen over the past few days, so patient was sent in today for further evaluation. In the ED, patient found to be hypoxic at 85%, tachypneic at 38 and tachycardic with HR of 120. Improved on BiPAP. Feels short of breath and weak with dry cough. Denies fever, chills, confusion, lightheadedness, chest pain, nausea, vomiting, abdominal pain, dysuria, diarrhea or constipation. CXR with interval development of patchy infiltrate in left upper and mid lung. Flu PCR positive for influenza A. Initial troponin positive at 0.347. Lactate and pro-calcitonin negative. Discussed CODE STATUS with patient and son, and patient would like to remain a full code. Is agreeable to intubation if deemed necessary. Discussed with gummed tape press operator who will monitor patient in the ICU. Allergies Allergy/AdvReac Type Severity Reaction Status Date / Time cat dander Allergy Intermediate ITCHY, RED Verified 03/02/19 12:21 RASH, CONGESTION dog dander Allergy Intermediate ITCHY, RED Verified 03/02/19 12:21 RASH, CONGESTION horse dander Allergy Intermediate ITCHY, RED Verified 03/02/19 12:21 RASH, CONGESTION rabbit dander Allergy Intermediate ITCHY, RED Verified 03/02/19 12:21 RASH, CONGESTION Home Medications Home Medications Medication Instructions Recorded Confirmed Type cholecalciferol (vitamin D3) 2,000 unit PO QAM #0 tab 07/13/15 03/02/19 History [Vitamin D3] melatonin 1 mg PO HS 30 Days #30 tab 07/13/15 03/02/19 History alendronate 70 mg PO WK 10/03/18 03/02/19 History guaifenesin [Mucinex] 600 mg PO Q12H PRN #30 tab 10/19/18 03/02/19 Rx Breo Ellipta 1 inh INHALATION QAM 12/09/18 03/02/19 History albuterol sulfate [ProAir HFA] 2 puff INHALATION Q4 PRN 12/09/18 03/02/19 History multivitamin 1 tab PO QAM 12/09/18 03/02/19 History acetaminophen [Tylenol] 650 mg PO Q4H PRN 02/26/19 03/02/19 History ipratropium-albuterol 3 ml INHALATION Q4H PRN 02/26/19 03/02/19 History pantoprazole 40 mg PO QAM 02/26/19 03/02/19 History Past Med/Surg History Medical History Hyponatremia (Chronic) Kyphosis (Chronic) COPD (chronic obstructive pulmonary disease) (Chronic) Hyperlipidemia (Chronic) GERD (gastroesophageal reflux disease) (Chronic) Chronic diastolic CHF (congestive heart failure) (Chronic) History of breast cancer (Resolved) Acute respiratory failure with hypoxia (Acute) Pneumonia (Acute) Atrial ectopy Ventricular ectopy Surgical History H/O: hysterectomy (Resolved) History of cataract surgery (Resolved) History of hip replacement (Resolved) Hx of unilateral modified radical mastectomy (Resolved) Social History Preferred Language: Tu[place] Communication Ability: Effective Automatic Machine Attendant Required: No Beliefs That Will Affect Care: None marital status: / Current Living Situation: Personal Care Facility Current Living Situation Comment: [facility] [place] current occupational status: retired Other Information That Helps Us Care for You: No Feels Safe at Home: Yes Safety Concerns: Feels Safe At This Time Smoking Status: Never smoker Hx Alcohol Use: No Hx Substance Use: No Review of Systems All systems reviewed & are unremarkable except as noted in HPI & below Physical Exam Vital Signs (Past 24 Hours): Last Vital Signs Pulse 123 H 03/02/19 14:39 Resp 30 H 03/02/19 14:39 BP 149/90 H 03/02/19 14:39 Pulse Ox 97 03/02/19 14:39 Physical Exam: General Appearance: WD/WN, frail, elderly, in acute respiratory distress with BiPAP, able to answer yes/no questions Head: normocephalic, atraumatic Eyes: normal inspection, PERRL, EOMI ENT: hearing grossly normal, dry mucous membranes, wearing BiPAP Neck: supple, no JVD, no adenopathy Respiratory/Chest: Poor air movement bilaterally, with scattered rhonchi. No wheezes or rales appreciated. + Accessory muscle use Cardiovascular: Tachycardic, no murmur, normal peripheral pulses Abdomen/GI: normal bowel sounds, soft, non-tender to palpation Extremities/Musculoskelatal: normal inspection, no calf tenderness, normal capillary refill, no pedal edema Neurologic/Psych: alert, normal mood/affect, oriented x 3 Skin: normal color, warm/dry Results & Data Laboratory Results Short CBC 03/02/19 Range/Units 12:00 WBC 20.61 H (4.8-10.8) K/uL Hgb 14.2 (12.0-16.0) g/dL Hct 41.3 (37-47) % Plt Count 452 H (130-400) K/uL BMP 03/02/19 12:00 Sodium 130 L Potassium 4.6 Chloride 91 L Carbon Dioxide 31 BUN 19 H Creatinine 0.46 L Glucose 111 H Calcium 9.6 Cardiac Enzymes 03/02/19 Range/Units 12:00 Troponin I 0.347 H* (0-0.045) ng/ml Liver Function 03/02/19 Range/Units 12:00 Total Bilirubin 0.3 (0.2-1) mg/dl AST 15 (15-37) U/L ALT 15 (12-78) U/L Alkaline Phosphatase 60 (45-117) U/L Albumin 2.6 L (3.4-5.0) gm/dl Diagnostic Findings CXR: IMPRESSION: 1. Interval development of patchy infiltrates in the left upper and mid lung concerning for pneumonia. This is superimposed on chronic lung disease. Supervising Physician Co-Signing Physician Notes Patient is an 88-year-old female with multiple comorbidities presents with history of shortness of breath since 4 days duration. Currently patient is in acute respiratory distress and unable to provide much history. Patient's son at bedside was unable to provide much history as well. Patient is transferred from [facility]. Most of the history is obtained from old records and ER physician. Patient was noted to have shortness of breath associated with low- grade fever and dry cough Which has been progressively worsening despite nebulizer treatments. While in ED patient was noted to be hypoxic at 85%, tachycardic, tachypneic and was placed on BiPAP. Chest x-ray showed findings suggestive of patchy infiltrates in the left upper and midlung. PCR is positive for influenza a. Patient was also noted to have mild troponin elevation and ST changes in the anterior leads. Patient denied any chest pain. On exam patient is thin, frail, acute respiratory distress, normocephalic atraumatic, lungs decreased breath sounds, posterior accessory muscle use, on BiPAP. S1-S2,+ tachycardia, no murmur, abdomen is soft nontender, grossly no focal deficits, no pedal edema. Patient is admitted in ICU for management of acute respiratory failure likely multifactorial secondary to pneumonia, influenza A, COPD e xacerbation. Patient is started on Tamiflu, empiric antibiotics. Blood cultures are pending. Continue respiratory support on BiPAP. Low threshold for intubation. Continue to trend cardiac enzymes, check echo for wall motion abnormality and consider cardiology evaluation for ST changes on EKG. Consider IV heparin if clinically indicated. Currently patient denies any chest pain. Appreciate gummed tape press operator input. CODE STATUS may need to be readdressed. No signs of volume overload on exam. I personally reviewed the record. Patient is interviewed and examined at bedside. Patient's care is coordinated with Janki Cook PA-C. Please refer to the documentation above for details of patient's presentation and for discussion of other issues. (1) GERD (gastroesophageal reflux disease) Esophagitis presence: esophagitis presence not specified Qualified Code(s): K21.9 - Gastro-esophageal reflux disease without esophagitis (2) PNA (pneumonia) Pneumonia type: due to unspecified organism
--- NOTE | 2019-03-02 15:28 | Critical Care Consultation ---
Date of Consultation March 02, 2019 Assessment & Plan (1) Acute respiratory failure: Neuro- awake but lethargic likely metabolic encephalopathy from pneumonia and respiratory distress CV- HD stable Pulmonary- acute respiratory failure likely multifactorial. patchy infiltrates on CXR. possible COPD exacerbation. BNP is very high but does not seem volume overloaded to suggest CHF. continue bipap support. with current work of breathing may get tired and require intubation. in ED first patient says she didnt want intubation then she said she would. Her son says that he does not think she would want intubation as her had been intubated before he . for COPD albuterol, ipratropium, steroids ID- sepsis with evidence of end organ dysfunction due to pneumonia. continue vancomycin and cefepime. follow cultures Renal- cr ok. hyponatremia -chronic GI- NPO while on bipap Heme- leukocytosis Endocrine- keep blood sugar <180 Dispo- admit to ICU for ventilatory failure I have personally spent 45 minutes of critical care time in the direct management of this patient. This is a life/limb threatening event. This includes time spent evaluating patient, direct bedside care, chart review, placing orders, interpretation of diagnostic studies, discussion with cons ultants, patient, and/or family members regarding treatment decisions, as well as other required patient management activities. This time is exclusive of all separately billable procedures, and teaching time and separate from and in addition to any other critical care service time. History of Present Illness Reason for Consultation: acute respiratory failure History of Present Illness 88 y/o female with a history of COPD, CHF, breast CA who was here in november and she was treated for pneumonia. she had been in [facility] since then. she presented to the ED with shortness of breath 4 days ago which resolved on arrival to ED. She presents today with shortness of breath. +cough. she denies other symptoms. no chest pain. no fevers no chills. no NVDC. She was placed on bipap and given vancomycin, cefepime and steroids. She says that she feels about the same.. Allergies Allergy/AdvReac Type Severity Reaction Status Date / Time cat dander Allergy Intermediate ITCHY, RED Verified 03/02/19 12:21 RASH, CONGESTION dog dander Allergy Intermediate ITCHY, RED Verified 03/02/19 12:21 RASH, CONGESTION horse dander Allergy Intermediate ITCHY, RED Verified 03/02/19 12:21 RASH, CONGESTION rabbit dander Allergy Intermediate ITCHY, RED Verified 03/02/19 12:21 RASH, CONGESTION Home Medications Home Medications Medication Instructions Recorded Confirmed Type cholecalciferol (vitamin D3) 2,000 unit PO QAM #0 tab 07/13/15 03/02/19 History [Vitamin D3] melatonin 1 mg PO HS 30 Days #30 tab 07/13/15 03/02/19 History alendronate 70 mg PO WK 10/03/18 03/02/19 History guaifenesin [Mucinex] 600 mg PO Q12H PRN #30 tab 10/19/18 03/02/19 Rx Breo Ellipta 1 inh INHALATION QAM 12/09/18 03/02/19 History albuterol sulfate [ProAir HFA] 2 puff INHALATION Q4 PRN 12/09/18 03/02/19 History multivitamin 1 tab PO QAM 12/09/18 03/02/19 History acetaminophen [Tylenol] 650 mg PO Q4H PRN 02/26/19 03/02/19 History ipratropium-albuterol 3 ml INHALATION Q4H PRN 02/26/19 03/02/19 History pantoprazole 40 mg PO QAM 02/26/19 03/02/19 History Patient History Medical History Kyphosis COPD (chronic obstructive pulmonary disease) Physical deconditioning Chronic respiratory failure Pneumonia (Acute) Hyperlipidemia GERD (gastroesophageal reflux disease) Chronic diastolic CHF (congestive heart failure) History of breast cancer Acute respiratory failure with hypoxia Atrial ectopy Bigeminy Bronchitis Bronchitis Constipation Fall Fracture of radius and ulna Pneumonia Shortness of breath Upper respiratory infection Ventricular ectopy Family History Other No significant family history Social History Preferred Language: Croatian Beliefs That Will Affect Care: None marital status: / Current Living Situation: Alone current occupational status: retired Feels Safe at Home: Yes Smoking Status: Never smoker Hx Alcohol Use: Yes Hx Substance Use: No Review of Systems unsure reliability of history Constitutional: no fevers no chills no weight loss Eyes: no blurry or double vision EENT: no sore throat, no congestion Respiratory: + cough + shortness of breath Cardiovascular: no chest pain no palpitations GI: no abdominal pain, no nausea, no vomiting, no diarrhea, no constipation Gu: no dysuria, no frequency MSK: no joint pain, no muscle aches Skin: no rash Neuro: no headache, no dizziness, no focal weakness Endocrine: no heat or cold intolerance heme: no easy bruising, no lymphadenopathy Physical Exam Vital Signs (Past 24 Hours): Last Vital Signs Pulse 123 H 03/02/19 14:39 Resp 30 H 03/02/19 14:39 BP 149/90 H 03/02/19 14:39 Pulse Ox 97 03/02/19 14:39 Physical Exam: Constitutional: Comfortable NAD but tachypneic on BIPAP HEENT: normocephalic atraumatic. dry mucus membranes. no cervical lymphadenopathy CV: tachycardic nl s1,s2 no murmurs rubs or gallops Lungs: decreased bilaterally poor air movement. + accessory muscle use Abd: soft nontender nondistended. normal bowel sounds Ext: no edema. no cyanosis, no clubbing Skin: warm dry Neuro: answers questions but is lethargic. moving all extremities Psych: lethargic Results & Data Laboratory Results Laboratory Results - last 24 hr 03/02/19 03/02/19 03/02/19 12:00 12:00 12:00 WBC 20.61 H RBC 4.86 Hgb 14.2 Hct 41.3 MCV 85.0 MCH 29.2 MCHC 34.4 RDW Std Deviation 43.5 RDW Coeff of Angelique 14.0 Plt Count 452 H MPV 9.6 Immature Gran % (Auto) 0.5 Neut % (Auto) 88.5 Lymph % (Auto) 7.2 Haralson % (Auto) 3.8 Eos % (Auto) 0.0 Baso % (Auto) 0.0 Immature Gran # (Auto) 0.10 H Neut # (Auto) 18.23 H Lymph # (Auto) 1.49 Haralson # (Auto) 0.79 H Eos # (Auto) 0.00 Baso # (Auto) 0.00 PT 10.4 INR 1.0 ABG pH ABG pCO2 ABG pO2 ABG HCO3 ABG O2 Saturation ABG Base Excess Godfrey Test Barometric Pressure Oxygen Given Sodium 130 L Potassium 4.6 Chloride 91 L Carbon Dioxide 31 Anion Gap 8.0 BUN 19 H Creatinine 0.46 L Est Cr Clr Drug Dosing 56.5 Est GFR ( Amer) 102.2 Est GFR (Non-Af Amer) 88.2 BUN/Creatinine Ratio 42.1 H Glucose 111 H POC Lactic Acid Titi Calcium 9.6 Magnesium 2.0 Total Bilirubin 0.3 AST 15 ALT 15 Alkaline Phosphatase 60 Troponin I 0.347 H* NT-Pro-B Natriuret Pep 26965 H Total Protein 6.7 Albumin 2.6 L Globulin 4.1 H Albumin/Globulin Ratio 0.6 L Lipase 57 L 03/02/19 03/02/19 12:07 13:36 WBC RBC Hgb Hct MCV MCH MCHC RDW Std Deviation RDW Coeff of Angelique Plt Count MPV Immature Gran % (Auto) Neut % (Auto) Lymph % (Auto) Haralson % (Auto) Eos % (Auto) Baso % (Auto) Immature Gran # (Auto) Neut # (Auto) Lymph # (Auto) Haralson # (Auto) Eos # (Auto) Baso # (Auto) PT INR ABG pH 7.38 ABG pCO2 53 H ABG pO2 116 H ABG HCO3 31 H ABG O2 Saturation 98.2 H ABG Base Excess 4.1 H Godfrey Test Pos Barometric Pressure 733.7 Oxygen Given 40% Sodium Potassium Chloride Carbon Dioxide Anion Gap BUN Creatinine Est Cr Clr Drug Dosing Est GFR ( Amer) Est GFR (Non-Af Amer) BUN/Creatinine Ratio Glucose POC Lactic Acid Titi 0.74 L Calcium Magnesium Total Bilirubin AST ALT Alkaline Phosphatase Troponin I NT-Pro-B Natriuret Pep Total Protein Albumin Globulin Albumin/Globulin Ratio Lipase Diagnostic Findings XR chest 1V portable CLINICAL HISTORY: 88 years-old Female presenting with sob. TECHNIQUE: Portable upright AP view of the chest was obtained. COMPARISON: 02/26/2019. FINDINGS: The patient is rotated. Atherosclerosis of the aortic arch. Cardiac silhouette normal in size. Heterogeneity of lung parenchyma with patchy opacities in the left upper and mid lung.e no large effusion or pneumothorax. Scoliotic curvature and extensive degenerative changes of the spine. Degenerative changes of bilateral glenohumeral joints. Suspected underlying osteopenia. IMPRESSION: 1. Interval development of patchy infiltrates in the left upper and mid lung concerning for pneumonia. This is superimposed on chronic lung disease. Electronically signed by: Guzman Aponte M.D. 03/02/2019 1:28 PM
[2019-03-02 16:17] LABS: Influenza B virus by PCR Neg for Influ B (Neg)
[2019-03-02] MEDS ORDERED: ICU PROTOCOL FOR HYPERGLYCEMIA PRN ×2 (17:17)
[2019-03-02] MEDS ORDERED: guaiFENesin 600 MG TABCR PO PRN (17:17)
[2019-03-02] MEDS ORDERED: ALBUTEROL HFA 8 GM INHALER INH PRN (17:17)
[2019-03-02] MEDS ORDERED: CEFEPIME CONSULT ACTIVE PRN (17:32)
[2019-03-02] MEDS ORDERED: CEFEPIME 1,000 MG in SYRINGE 0 ML IV SCH (18:00)
--- NOTE | 2019-03-02 18:33 | Pharmacy Report ---
Pharmacy Abx Dose Short Note - Date of Service March 02, 2019 - Assessment & Plan Assessment 88 year old F receiving vanco/cefepime for treatment of pulmonary source Day # 1/? of antimicrobial therapy. I did order a MRSA nasal swab in an effort to de-escalate antimicrobials if clinically appropriate. BC x2 ordered and pending. Plan Vancomycin * Vanco 1000mg (22mg/kg) x1 given in ED * Will start vanco 750mg (16mg/kg) q14 03/03/19 @0400 * Goal trough for pulm source: 15-20mcg/mL * Trough ordered prior to css, 03/04/19 @0730 Cefepime: * goal dose 1-2g IV q8-12 * adjusted for renal fxn <60cc/min 2g q12 Pharmacy will continue to follow and will adjust dose/frequency as necessary. Thank you.
[2019-03-02] MEDS: HEPARIN SOD 5,000 UNIT/0.5 ML VIAL SQ SCH (19:52)
[2019-03-02] MEDS: OSELTAMIVIR PHOSPHATE 75 MG CAP PO SCH (19:52)
[2019-03-02] MEDS: methylPREDNISolone 40 MG in SYRINGE 0 ML IV SCH (19:52)
[2019-03-02] MEDS: LEVALBUTEROL HCL 1.25 MG/3 ML NEB INH SCH ×2 (20:15→23:29)
[2019-03-02] MEDS: IPRATROPIUM BROMIDE NEB SOLN 0.02% 2.5 ML VIAL INH SCH ×2 (20:15→23:28)
[2019-03-02] MEDS: METOPROLOL TARTRATE 1 MG/ML VIAL IV PRN (21:57)
[2019-03-03] MEDS: methylPREDNISolone 40 MG in SYRINGE 0 ML IV SCH ×2 (03:28→15:26)
[2019-03-03] MEDS ORDERED: VANCOMYCIN HCL 750 MG in SODIUM CHLORIDE 0.9% 250 ML IV SCH (04:00)
[2019-03-03] MEDS: METOPROLOL TARTRATE 1 MG/ML VIAL IV PRN ×2 (04:04→17:26)
[2019-03-03] MEDS: LEVALBUTEROL HCL 1.25 MG/3 ML NEB INH SCH ×6 (04:11→23:52)
[2019-03-03] MEDS: IPRATROPIUM BROMIDE NEB SOLN 0.02% 2.5 ML VIAL INH SCH ×6 (04:12→23:51)
[2019-03-03 05:18] LABS: Basophils # (auto) 0.08 K/uL (0-0.2); Basophils % (auto) 0.6 %; Hemoglobin 15.4 g/dL (12.0-16.0); Immature Granulocytes # (auto) 0.11 K/uL (0.00-0.02); Immature Granulocytes % (auto) 0.9 %; Lymphocytes # (auto) 0.46 K/uL (1.2-3.4); Lymphocytes % (auto) 3.6 %; Mean Corpuscular Hgb Conc 32.8 g/dL (32-36); Mean Corpuscular Volume 86.7 fL (80-100); Mean Platelet Volume 9.4 fL (7.4-10.4); Monocytes # (auto) 0.68 K/uL (0.11-0.59); Monocytes % (auto) 5.3 %; Neutrophils # (auto) 11.48 K/uL (1.4-6.5); Neutrophils % (auto) 89.6 %; Platelet Count 427 K/uL (130-400); RDW Coefficient of Variation 14.1 % (11.5-14.5); RDW Standard Deviation 44.8 fL (36.4-46.3); Red Blood Count 5.42 M/uL (4.2-5.4); White Blood Count 12.81 K/uL (4.8-10.8)
[2019-03-03] MEDS: CEFEPIME 2,000 MG in SYRINGE 7.5 ML IV SCH ×2 (05:19→17:27)
[2019-03-03 06:09] LABS: BUN Creatinine Ratio 43.5 (10-20); Creatinine Clr Calc Pharmacy 44.1 ml/min; Est GFR (African American) 94.2; Est GFR (Non-African American) 81.3; Phosphorus 4.5 mg/dl (2.5-4.9); Potassium 4.1 mmol/L (3.5-5.1)
--- NOTE | 2019-03-03 07:41 | Hospitalist Progress Note ---
Date of Service March 03, 2019 Assessment & Plan (1) Acute respiratory failure with hypoxia: This is an 88-year-old female resident of [facility] with a PMH of COPD, diastolic HF, chronic hyponatremia and GERD who presents with shortness of breath x 4 days and was found to have acute respiratory failure with hypoxia in the setting of possible hospital-acquired pneumonia, influenza A and COPD exacerbation. -Admitted to ICU on 03/02, continue BiPAP for now and intubate if needed -Management per upper extremity surgeon (2) Sepsis: Treating for HCAP (3) PNA (pneumonia): Met sepsis criteria with leukocytosis of 20.6K, tachypnea at 38 and tachycardic with HR of 120, HR down today -CXR with interval development of patchy infiltrates on left upper and midlung -Blood cultures obtained -Lactate, pro-calcitonin within normal limits -Continue empiric coverage with cefepime and Vanco (4) Influenza A: Tamiflu, supportive measures -Droplet precautions (5) COPD (chronic obstructive pulmonary disease): Continue albuterol, ipratropium inh, solu-medrol (6) Elevated troponin: Troponin elevation of 0.347, likely demand ischemia -No chest pain or acute EKG changes -Trend troponin (7) Hyponatremia: Chronic, history of SIADH -Has been on fluid restriction of 1.5 L in the past (8) Chronic diastolic CHF (congestive heart failure): Appears euvolemic. Received both fluids and IV Lasix in ED -BNP elevated but no evidence on physical exam or CXR to suggest volume overload -Continue monitoring volume status closely (9) GERD (gastroesophageal reflux disease): Continue PPI DVT Ppx: SQ heparin Code status: FULL per lengthy discussion with patient PCP: Monika Dispo: Admitted to ICU. Discharge planning ordered. Subjective Saw her in the ICU, son at bedside, she was sleeping and awakened to verbal st imuli. ROS-No Headache, No Visual Changes, No Nausea, No Vomiting, No Fever, No Chills, No Neck Pain or Stiffness, No Chest Pain, No Palpitations,+ SOB, No THORNTON, + Cough, No Sputum, No Wheezing, No Abdominal Pain, No Diarrhea, No Hematemesis, No Hemoptysis, No Unexpected Weight Loss, No Flank pain, No Melena, No Hematochezia, No Frequency, No Urgency, No Burning, No Hematuria, No Rashes, No Diaphoresis. Appetite is Poor, Weak Physical Exam Gen-AO x 3, NAD, Hypothermic, weak, somnolent, On BIPAP Head-NCAT, EOMI, PERRLA, Anicteric Sclera, No Posterior Pharyngeal Erythema Neck-Supple, No JVD, No Thyromegaly, No Masses, No LAD, No Bruits Lungs-Clear to Auscultation Bilaterally, No Rales, Scattered Rhonchi, No Wheezing, No Crepitus Chest-No S4, +S1, +S2, No S3, No Murmurs, No Rubs, No Gallops, No Ectopy Abdomen-Soft, Bowel Sounds Present, Non Tender, Non Distended, No Hepatomegaly, No Splenomegaly, No Palpable Masses, No Rebound, No Rigidity, No Guarding Musculoskeletal-Full Range of Motion Bilaterally, No CVAT Extremities-No Cyanosis, No Clubbing, No Edema Nuero-Cranial Nerves II-XII grossly intact, Motor WNL, DTRs WNL, Strength WNL, Non Focal Psych-Normal Mood Physical Exam Vital Signs (Past 24 Hours): Last Vital Signs Temp 36.6 C 03/03/19 04:00 Pulse 94 H 03/03/19 07:00 Resp 38 H 03/03/19 07:00 BP 121/54 L 03/03/19 07:00 Pulse Ox 99 03/03/19 07:00 Results & Data Laboratory Results Current Diagnoses Sepsis, unspecified organism (03/02/19) Hypo-osmolality and hyponatremia (03/02/19) Chronic diastolic (congestive) heart failure (03/02/19) Influenza due to other identified influenza virus with other respiratory manifestations (03/02/19) Pneumonia, unspecified organism (03/02/19) Chronic obstructive pulmonary disease, unspecified (03/02/19) Acute respiratory failure, unspecified whether with hypoxia or hypercapnia (03/02/19) Acute respiratory failure with hypoxia (03/02/19) Gastro-esophageal reflux disease without esophagitis (03/02/19) Abnormal levels of other serum enzymes (03/02/19) Allergies cat dander Allergy (Intermediate, Verified 03/02/19 12:21) ITCHY, RED RASH, CONGESTION dog dander Allergy (Intermediate, Verified 03/02/19 12:21) ITCHY, RED RASH, CONGESTION horse dander Allergy (Intermediate, Verified 03/02/19 12:21) ITCHY, RED RASH, CONGESTION rabbit dander Allergy (Intermediate, Verified 03/02/19 12:21) ITCHY, RED RASH, CONGESTION Height/Weight/Isolation Height 4 ft 11 in Weight 44.7 kg Isolation Type Droplet Precautions Chemistry 03/02/19 03/03/19 12:00 04:44 Sodium 130 L 135 L Potassium 4.6 4.1 Chloride 91 L 94 L Carbon Dioxide 31 31 Anion Gap 8.0 10.0 BUN 19 H 25 H Creatinine 0.46 L 0.59 L Glucose 111 H 103 H Microbiology 03/02/19 12:15 Blood Blood Culture - Pending 03/02/19 12:00 Blood Blood Culture - Pending (1) PNA (pneumonia) Pneumonia type: due to unspecified organism (2) GERD (gastroesophageal reflux disease) Esophagitis presence: esophagitis presence not specified Qualified Code(s): K21.9 - Gastro-esophageal reflux disease without esophagitis
--- NOTE | 2019-03-03 07:58 | XRay Report ---
XR chest 1V portable CLINICAL HISTORY: 88 years-old Female presenting with congestion. TECHNIQUE: Portable upright AP view of the chest was obtained. COMPARISON: 03/02/2019. FINDINGS: The patient is ESTONIAN rotated. Atherosclerosis of the aortic arch and tortuosity of the descending thora cic aorta. Cardiac silhouette normal in size allowing for rotation. Significant heterogeneity of lung parenchyma, and appearance which may in part be due to overlapping costochondral calcification. The previously suggested nodular opacities in the left mid and upper lung remain present. These do not de finitively localized to a rib shadow. No pleural effusion or pneumothorax. Suspected underlying osteo penia. Upper abdomen normal. IMPRESSION: 1. Left mid and upper lung nodular opacities. The etiology of this is unknown. An infectious, inflam matory, or neoplastic causes not excluded. Electronically signed by: Guzman Aponte M.D. 03/03/2019 7:56 AM
[2019-03-03] MEDS: HEPARIN SOD 5,000 UNIT/0.5 ML VIAL SQ SCH ×3 (08:47→21:10)
[2019-03-03] MEDS: OSELTAMIVIR PHOSPHATE 75 MG CAP PO SCH ×2 (08:47→20:55)
--- NOTE | 2019-03-03 09:04 | Critical Care Progress Note ---
Date of Service March 03, 2019 Assessment & Plan (1) Acute respiratory failure: Neuro- more awake but lethargic likely metabolic encephalopathy from pneumonia and respiratory distress CV- HD stable. history of diastolic heart failure. increased troponin likely demand and hypoxia Pulmonary- acute respiratory failure likely multifactorial due to influenza and COPD exacerbation. for COPD albuterol, ipratropium, steroids. continue BIPAP as needed. trial off today ID- sepsis with evidence of end organ dysfunction due to pneumonia. influenza on oseltamivir. continue vancomycin and cefepime for possible bacterial superinfection. follow cultures Renal- cr ok. hyponatremia -chronic GI- NPO while on bipap. diet if can tolerate off Heme- leukocytosis improved Endocrine- keep blood sugar <180 Dispo- continue ICU care for ventilatory support full code I have personally spent 35 minutes of critical care time in the direct management of this patient. This is a life/limb threatening event. This includes time spent evaluating patient, direct bedside care, chart review, pl acing orders, interpretation of diagnostic studies, discussion with consultants, patient, and/or family members regarding treatment decisions, as well as other required patient management activities. This time is exclusive of all separately billable procedures, and teaching time and separate from and in addition to any other critical care service time. Subjective still short of breath but improved remains on bipap Physical Exam Vital Signs (Past 24 Hours): Last Vital Signs Temp 36.0 C L 03/03/19 08:00 Pulse 91 H 03/03/19 08:00 Resp 28 H 03/03/19 08:00 BP 111/62 03/03/19 08:00 Pulse Ox 96 03/03/19 08:00 Physical Exam: Constitutional: Comfortable NAD on BIPAP HEENT: normocephalic atraumatic. dry mucus membranes. no cervical lymphadenopathy CV: tachycardic nl s1,s2 no murmurs rubs or gallops Lungs: decreased bilaterally poor air movement. no accessory muscle use Abd: soft nontender nondistended. normal bowel sounds Ext: no edema. no cyanosis, no clubbing Skin: warm dry Neuro: answers questions more awake than yesterday. moving all extremities
[2019-03-03] MEDS ORDERED: PANTOprazole 40 MG in SYRINGE 0 ML IV SCH (11:00)
--- NOTE | 2019-03-03 23:53 | Emergency Department Note ---
Entered by Jadyn Wylie acting as a scribe for Ingrid Hidalgo DO History of Present Illness General Chief complaint: Respiratory Problems Time Seen by Provider: 03/02/19 11:54 Source: patient, old records reviewed and other (nursing staff) History of Present Illness Provider complaint: respiratory problems Onset (ago): hour(s) (today) Location: chest Pain Consistency: + constant Quality: + other (respiratory problems) Treatments prior to arrival: other (3 Duonebs) The patient is an 88 year old female who presents to the Emergency Room with complaints of respiratory problems today. The patient denies a history of CHF but reports a history of pneumonia. She denies a history of smoking. Patient denies chest pain or abdominal pain. Admits to cough. Denies fevers. HPI limited by clinical condition. Patient was hypoxic initially on room air according to EMS report and initially hypoxic here when taken off oxygen also. Per nursing staff, the patient was 84% on room air. Nursing staff states that the patient had 3 Duonebs en route. Review of EMR shows that the patient has a history of CHF and COPD. Home Medications Home Medications Medication Instructions Recorded Confirmed Type cholecalciferol (vitamin D3) 2,000 unit PO QAM #0 tab 07/13/15 03/02/19 History [Vitamin D3] melatonin 1 mg PO HS 30 Days #30 tab 07/13/15 03/02/19 History alendronate 70 mg PO WK 10/03/18 03/02/19 History guaifenesin [Mucinex] 600 mg PO Q12H PRN #30 tab 10/19/18 03/02/19 Rx Breo Ellipta 1 inh INHALATION QAM 12/09/18 03/02/19 History albuterol sulfate [ProAir HFA] 2 puff INHALATION Q4 PRN 12/09/18 03/02/19 History multivitamin 1 tab PO QAM 12/09/18 03/02/19 History acetaminophen [Tylenol] 650 mg PO Q4H PRN 02/26/19 03/02/19 History ipratropium-albuterol 3 ml INHALATION Q4H PRN 02/26/19 03/02/19 History pantoprazole 40 mg PO QAM 02/26/19 03/02/19 History Allergies Allergy/AdvReac Type Severity Reaction Status Date / Time cat dander Allergy Intermediate ITCHY, RED Verified 03/02/19 12:21 RASH, CONGESTION dog dander Allergy Intermediate ITCHY, RED Verified 03/02/19 12:21 RASH, CONGESTION horse dander Allergy Intermediate ITCHY, RED Verified 03/02/19 12:21 RASH, CONGESTION rabbit dander Allergy Intermediate ITCHY, RED Verified 03/02/19 12:21 RASH, CONGESTION Past Med/Surg History Medical History Hyponatremia (Chronic) Kyphosis (Chronic) COPD (chronic obstructive pulmonary disease) (Chronic) Hyperlipidemia (Chronic) GERD (gastroesophageal reflux disease) (Chronic) Chronic diastolic CHF (congestive heart failure) (Chronic) History of breast cancer (Resolved) Acute respiratory failure with hypoxia (Acute) Pneumonia (Acute) Atrial ectopy Ventricular ectopy Surgical History H/O: hysterectomy (Resolved) History of cataract surgery (Resolved) History of hip replacement (Resolved) Hx of unilateral modified radical mastectomy (Resolved) Social History Communication Ability: Effective Beliefs That Will Affect Care: None marital status: / Current Living Situation: Personal Care Facility Current Living Situation Comment: [facility] current occupational status: retired Other Information That Helps Us Care for You: No Feels Safe at Home: Yes Safety Concerns: Feels Safe At This Time Smoking Status: Never smoker Hx Alcohol Use: No Hx Substance Use: No Review of Systems See HPI for pertinent positives & negatives. Other (Limited due to clinical condition) Physical Exam Vital Signs Vital Signs - 24 hr 03/03/19 00:00 03/03/19 01:00 03/03/19 02:00 Temperature 36.5 C Temperature Source Axillary Pulse Rate 93 H Pulse Rate [Apical] 93 H 94 H 97 H Pulse Rate from SpO2 Sensor Respiratory Rate 33 H 34 H 35 H Respiratory Effort / Characteristics Respiratory Depth Respiratory Pattern Blood Pressure Blood Pressure [Right Arm] 110/49 L 126/63 120/62 Blood Pressure Mean Blood Pressure Mean [Right Arm] 69 84 81 Blood Pressure Position [Right Arm] Pulse Oximetry 96 100 97 Oxygen Delivery Method BiPAP BiPAP BiPAP Oxygen Flow Rate Fraction of Inspired Oxygen 40 40 40 SaO2/FiO2 Ratio 240 250 242 03/03/19 03:00 03/03/19 03:21 03/03/19 04:00 Temperature 36.6 C Temperature Source Axillary Pulse Rate 94 H Pulse Rate [Apical] 103 H 117 H Pulse Rate from SpO2 Sensor Respiratory Rate 37 H 29 H 34 H Respiratory Effort / Characteristics Non-Labored Spontaneous SOB on Exertion Respiratory Depth Normal Respiratory Pattern Regular Tachypnea Blood Pressure Blood Pressure [Right Arm] 106/42 L 129/58 L Blood Pressure Mean Blood Pressure Mean [Right Arm] 63 81 Blood Pressure Position [Right Arm] Pulse Oximetry 98 95 100 Oxygen Delivery Method BiPAP BiPAP Oxygen Flow Rate Fraction of Inspired Oxygen 40 40 40 SaO2/FiO2 Ratio 245 250 03/03/19 04:04 03/03/19 04:07 03/03/19 05:00 Temperature Temperature Source Pulse Rate 117 H Pulse Rate [Apical] 102 H 90 Pulse Rate from SpO2 Sensor Respiratory Rate 29 H 29 H Respiratory Effort / Characteristics Spontaneous Accessory Muscle Use Respiratory Depth Respiratory Pattern Blood Pressure 129/58 L Blood Pressure [Right Arm] 114/60 Blood Pressure Mean Blood Pressure Mean [Right Arm] 78 Blood Pressure Position [Right Arm] Pulse Oximetry 99 99 Oxygen Delivery Method BiPAP BiPAP Oxygen Flow Rate Fraction of Inspired Oxygen 40 40 SaO2/FiO2 Ratio 247 03/03/19 05:20 03/03/19 06:00 03/03/19 07:00 Temperature Temperature Source Pulse Rate 104 H 92 H Pulse Rate [Apical] 91 H 94 H Pulse Rate from SpO2 Sensor Respiratory Rate 33 H 32 H Respiratory Effort / Characteristics Non-Labored Spontaneous Respiratory Depth Normal Respiratory Pattern Regular Blood Pressure 121/54 L Blood Pressure [Right Arm] 112/58 L 121/54 L Blood Pressure Mean 76 Blood Pressure Mean [Right Arm] 76 76 Blood Pressure Position [Right Arm] Pulse Oximetry 95 99 98 Oxygen Delivery Method BiPAP BiPAP Oxygen Flow Rate 40 Fraction of Inspired Oxygen 40 40 40 SaO2/FiO2 Ratio 247 247 03/03/19 07:40 03/03/19 07:55 03/03/19 08:00 Temperature 36.0 C L Temperature Source Pulse Rate 91 H Pulse Rate [Apical] 96 H Pulse Rate from SpO2 Sensor Respiratory Rate 18 28 H Respiratory Effort / Characteristics Non-Labored Spontaneous Non-Labored Spontaneous Respiratory Depth Normal Respiratory Pattern Regular Blood Pressure 111/62 Blood Pressure [Right Arm] Blood Pressure Mean 78 Blood Pressure Mean [Right Arm] Blood Pressure Position [Right Arm] Pulse Oximetry 99 96 Oxygen Delivery Method BiPAP BiPAP BiPAP Oxygen Flow Rate 40 Fraction of Inspired Oxygen 40 40 SaO2/FiO2 Ratio 03/03/19 08:10 03/03/19 09:00 03/03/19 10:01 Temperature Temperature Source Pulse Rate 100 H Pulse Rate [Apical] 99 H Pulse Rate from SpO2 Sensor Respiratory Rate 30 H 36 H Respiratory Effort / Characteristics Non-Labored Spontaneous Respiratory Depth Respiratory Pattern Regular Blood Pressure 103/46 L Blood Pressure [Right Arm] 114/55 L Blood Pressure Mean 65 Blood Pressure Mean [Right Arm] 74 Blood Pressure Position [Right Arm] Lying Pulse Oximetry 95 99 Oxygen Delivery Method BiPAP Nasal Cannula Nasal Cannula Oxygen Flow Rate 3 3 Fraction of Inspired Oxygen SaO2/FiO2 Ratio 03/03/19 11:00 03/03/19 11:31 03/03/19 12:00 Temperature 36.4 C L Temperature Source Pulse Rate 105 H 99 H Pulse Rate [Apical] 95 H Pulse Rate from SpO2 Sensor 76 Respiratory Rate 39 H 30 H 43 H Respiratory Effort / Characteristics Spontaneous Respiratory Depth Respiratory Pattern Blood Pressure 120/53 L 111/64 Blood Pressure [Right Arm] Blood Pressure Mean 75 79 Blood Pressure Mean [Right Arm] Blood Pressure Position [Right Arm] Pulse Oximetry 95 98 98 Oxygen Delivery Method Nasal Cannula Nasal Cannula Nasal Cannula Oxygen Flow Rate 3 3 3 Fraction of Inspired Oxygen SaO2/FiO2 Ratio 03/03/19 13:00 03/03/19 14:00 03/03/19 15:00 Temperature Temperature Source Pulse Rate 99 H 104 H 101 H Pulse Rate [Apical] Pulse Rate from SpO2 Sensor 96 H Respiratory Rate 31 H 40 H 32 H Respiratory Effort / Characteristics Respiratory Depth Respiratory Pattern Blood Pressure 118/53 L 107/75 117/50 L Blood Pressure [Right Arm] Blood Pressure Mean 74 85 72 Blood Pressure Mean [Right Arm] Blood Pressure Position [Right Arm] Pulse Oximetry 97 96 96 Oxygen Delivery Method Nasal Cannula Nasal Cannula Nasal Cannula Oxygen Flow Rate 3 3 3 Fraction of Inspired Oxygen SaO2/FiO2 Ratio 03/03/19 16:00 03/03/19 16:21 03/03/19 17:00 Temperature 36.4 C L Temperature Source Pulse Rate 103 H 124 H Pulse Rate [Apical] 103 H Pulse Rate from SpO2 Sensor Respiratory Rate 29 H 16 48 H Respiratory Effort / Characteristics Non-Labored Spontaneous Respiratory Depth Respiratory Pattern Blood Pressure 110/61 Blood Pressure [Right Arm] Blood Pressure Mean 77 Blood Pressure Mean [Right Arm] Blood Pressure Position [Right Arm] Pulse Oximetry 96 95 96 Oxygen Delivery Method Nasal Cannula Nasal Cannula Nasal Cannula Oxygen Flow Rate 3 3 3 Fraction of Inspired Oxygen SaO2/FiO2 Ratio 03/03/19 17:26 03/03/19 18:00 03/03/19 19:00 Temperature Temperature Source Pulse Rate 120 H 93 H 94 H Pulse Rate [Apical] Pulse Rate from SpO2 Sensor 94 H 93 H Respiratory Rate 20 27 H Respiratory Effort / Characteristics Respiratory Depth Respiratory Pattern Blood Pressure 110/61 116/61 128/63 Blood Pressure [Right Arm] Blood Pressure Mean 79 84 Blood Pressure Mean [Right Arm] Blood Pressure Position [Right Arm] Pulse Oximetry 98 98 Oxygen Delivery Method Nasal Cannula BiPAP Oxygen Flow Rate 3 Fraction of Inspired Oxygen SaO2/FiO2 Ratio 03/03/19 20:00 03/03/19 20:35 03/03/19 20:37 Temperature 36.6 C Temperature Source Pulse Rate 93 H 92 H Pulse Rate [Apical] 92 H Pulse Rate from SpO2 Sensor 93 H Respiratory Rate 18 23 Respiratory Effort / Characteristics Non-Labored Spontaneous Non-Labored Spontaneous Non-Labored Spontaneous Respiratory Depth Normal Normal Respiratory Pattern Regular Regular Blood Pressure 118/57 L Blood Pressure [Right Arm] Blood Pressure Mean 77 Blood Pressure Mean [Right Arm] Blood Pressure Position [Right Arm] Pulse Oximetry 98 97 97 Oxygen Delivery Method BiPAP BiPAP Oxygen Flow Rate Fraction of Inspired Oxygen 40 40 SaO2/FiO2 Ratio 03/03/19 21:00 03/03/19 22:00 03/03/19 22:33 Temperature Temperature Source Pulse Rate 95 H 92 H 91 H Pulse Rate [Apical] Pulse Rate from SpO2 Sensor 95 H 80 Respiratory Rate 24 31 H Respiratory Effort / Characteristics Non-Labored Spontaneous Respiratory Depth Normal Respiratory Pattern Regular Blood Pressure 122/57 L 118/64 Blood Pressure [Right Arm] Blood Pressure Mean 78 82 Blood Pressure Mean [Right Arm] Blood Pressure Position [Right Arm] Pulse Oximetry 95 96 95 Oxygen Delivery Method BiPAP BiPAP Oxygen Flow Rate Fraction of Inspired Oxygen 40 40 40 SaO2/FiO2 Ratio 03/03/19 23:00 Temperature Temperature Source Pulse Rate 96 H Pulse Rate [Apical] Pulse Rate from SpO2 Sensor 99 H Respiratory Rate 33 H Respiratory Effort / Characteristics Respiratory Depth Respiratory Pattern Blood Pressure 130/56 L Blood Pressure [Right Arm] Blood Pressure Mean 80 Blood Pressure Mean [Right Arm] Blood Pressure Position [Right Arm] Pulse Oximetry 94 Oxygen Delivery Method Nasal Cannula Oxygen Flow Rate 3 Fraction of Inspired Oxygen SaO2/FiO2 Ratio GENERAL: cachectic EYE EXAM: normal conjunctiva, PERRL and EOM's grossly intact OROPHARYNX: no exudate, no erythema, lips, buccal mucosa, and tongue normal and mucous membranes are moist NECK: supple, no nuchal rigidity, no adenopathy, non-tender LUNGS: Barrel-chested. Increased work of breathing. Retractions. Nasal flaring. Rhonchitic bilaterally. HEART: tachycardic, no murmurs, S1 normal and S2 normal ABDOMEN: abdomen soft, non-tender, normo-active bowel sounds, no masses, no rebound or guarding. BACK: Back is symmetrical on inspection and there is no deformity, no midline tenderness, no CVA tenderness. SKIN: no rashes and no bruising, well-healed scars from prior mastectomy UPPER EXTREMITIES: upper extremities are grossly normal. LOWER EXTREMITIES: No pitting edema. NEURO EXAM: Normal sensorium, cranial nerves II-XII intact, normal speech, no weakness of arms, no weakness of legs. Course 1150: The patient was evaluated in room C4, and a complete history and physical examination were performed. 1246: I rechecked the patient. She is still breathing about 36 per minute. She stated that she does not want to be intubated. 1316: I checked on the patient. She keeps taking the BiPAP mask off and when she does this her sats drop to the mid 80s. 1407: The patient is still oriented. She is still saying that she does not want to be intubated. 1409: I discussed the patient's case with Janki Rose who will evaluate the patient for further management. 1416: I left a message on the patient's son's voicemail regarding the patient's condition. 1444: I spoke with Janki Cook PA-C who stated that the patient would now like to be intubated. 1510: Dr. Wills-Japanese Interpreter is at bedside. He wants to hold off on intubation at this time. He is having an additional discussion with the patient's son. 1528: I checked on the patient. She is still tachypneic in the mid 30s. Dr. Rico was at bedside. Consultations Consultation #1: Janki Rose Time: 14:09 Administered Medications Heparin Sodium (Porcine) (Heparin Sodium (Porcine)) 5,000 units SQ Q12 AVANI Stop: 04/01/19 20:59 Last Admin: 03/03/19 21:10 Dose: Not Given Documented by: [id number] Admin: 03/03/19 08:47 Dose: 5,000 units Documented by: [id number] Cosigned by: [id number] Admin: 03/02/19 19:52 Dose: 5,000 units Documented by: [id number] Cosigned by: [id number] Cefepime HCl 2,000 mg/ Syringe 20 mls @ 5 mls/min IV Q12H AVANI Stop: 03/10/19 05:59 Last Admin: 03/03/19 17:27 Dose: 5 mls/min Documented by: [id number] Admin: 03/03/19 05:19 Dose: 5 mls/min Documented by: [id number] Pantoprazole Sodium 40 mg/ (Syringe) 10 mls @ 5 mls/min IV Q2D@1100 AVANI Stop: 04/02/19 10:59 Last Admin: 03/03/19 11:05 Dose: 5 mls/min Documented by: [id number] Methylprednisolone 40 mg/ (Syringe) 0.64 mls @ 1.5 mls/min IV Q12H AVANI Stop: 04/02/19 15:59 Last Admin: 03/03/19 15:26 Dose: 1.5 mls/min Documented by: [id number] Ipratropium [place] (Atrovent 0.02% 0.5mg/2.5ml) 0.5 mg INH Q4R AVANI Stop: 04/01/19 19:59 Last Admin: 03/03/19 20:34 Dose: 0.5 mg Documented by: [id number] Admin: 03/03/19 16:19 Dose: 0.5 mg Documented by: [id number] Admin: 03/03/19 11:29 Dose: 0.5 mg Documented by: [id number] Admin: 03/03/19 07:40 Dose: 0.5 mg Documented by: [id number] Admin: 03/03/19 04:12 Dose: 0.5 mg Documented by: [id number] Admin: 03/02/19 23:28 Dose: 0.5 mg Documented by: [id number] Admin: 03/02/19 20:15 Dose: 0.5 mg Documented by: [id number] Levalbuterol HCl (Xopenex 1.25mg/3ml Neb) 1.25 mg INH Q4R AVANI Stop: 04/01/19 19:59 Last Admin: 03/03/19 20:34 Dose: 1.25 mg Documented by: [id number] Admin: 03/03/19 16:19 Dose: 1.25 mg Documented by: [id number] Admin: 03/03/19 11:30 Dose: 1.25 mg Documented by: [id number] Admin: 03/03/19 07:40 Dose: 1.25 mg Documented by: [id number] Admin: 03/03/19 04:11 Dose: 1.25 mg Documented by: [id number] Admin: 03/02/19 23:29 Dose: 1.25 mg Documented by: [id number] Admin: 03/02/19 20:15 Dose: 1.25 mg Documented by: [id number] Metoprolol Tartrate (Lopressor) 2.5 mg IV Q6 PRN PRN Reason: Tachycardia Stop: 04/02/19 00:00 Last Admin: 03/03/19 17:26 Dose: 2.5 mg Documented by: [id number] Admin: 03/03/19 04:04 Dose: 2.5 mg Documented by: [id number] Admin: 03/02/19 21:57 Dose: 2.5 mg Documented by: [id number] Miscellaneous (Order Awaiting Action) 1 ea N/A QS AVANI Stop: 04/02/19 00:00 Last Admin: 03/03/19 23:24 Dose: Not Given Documented by: [id number] Admin: 03/03/19 15:26 Dose: Not Given Documented by: [id number] Admin: 03/03/19 08:47 Dose: Not Given Documented by: [id number] Admin: 03/03/19 00:09 Dose: Not Given Documented by: [id number] Oseltamivir Phosphate (Tamiflu) 75 mg PO BID AVANI Stop: 03/07/19 17:59 Last Admin: 03/03/19 20:55 Dose: 75 mg Documented by: [id number] Admin: 03/03/19 08:47 Dose: 75 mg Documented by: [id number] Admin: 03/02/19 19:52 Dose: 75 mg Documented by: [id number] Discontinued Medications Albuterol (Duoneb) 3 ml NEB NOW STA Stop: 03/02/19 13:06 Last Admin: 03/02/19 13:35 Dose: 3 ml Documented by: [id number] Furosemide (Lasix) 40 mg IV NOW STA Stop: 03/02/19 13:07 Last Admin: 03/02/19 13:19 Dose: 40 mg Documented by: [id number] Lorazepam (Ativan) 0.25 mg in 0.5 mls @ 0.5 mls/min IV NOW STA Stop: 03/02/19 13:33 Last Admin: 03/02/19 14:30 Dose: Not Given Documented by: [id number] Cefepime HCl 1,000 mg/ Syringe 11.3 mls @ 5.5 mls/min IV NOW STA Stop: 03/02/19 13:34 Last Admin: 03/02/19 14:27 Dose: 5.5 mls/min Documented by: [id number] Sodium Chloride (Nss 1000ml) 1,000 mls @ 200 mls/hr IV .Q5H AVANI Stop: 04/01/19 13:44 Last Infusion: 03/02/19 17:42 Dose: 0 mls/hr Documented by: [id number] Admin: 03/02/19 14:29 Dose: 200 mls/hr Documented by: [id number] Vancomycin HCl 1,000 mg/ (Sodium Chloride) 520 mls @ 200 mls/hr IV NOW ONE Stop: 03/02/19 16:07 Last Infusion: 03/02/19 19:24 Dose: 0 mls/hr Documented by: [id number] Infusion: 03/02/19 17:43 Dose: 150 mls/hr Documented by: [id number] Admin: 03/02/19 14:27 Dose: 200 mls/hr Documented by: [id number] Cefepime HCl 1,000 mg/ Syringe 11.3 mls @ 5.5 mls/min IV Q12H AVANI Stop: 03/09/19 17:59 Last Admin: 03/02/19 17:44 Dose: 5.5 mls/min Documented by: [id number] Methylprednisolone 40 mg/ (Syringe) 0.64 mls @ 1.5 mls/min IV Q8H AVANI Stop: 04/01/19 19:59 Last Admin: 03/03/19 03:28 Dose: 1.5 mls/min Documented by: [id number] Admin: 03/02/19 19:52 Dose: 1.5 mls/min Documented by: [id number] Vancomycin HCl 750 mg/ Sodium (Chloride) 265 mls @ 125 mls/hr IV Q14H AVANI Stop: 03/10/19 03:59 Last Infusion: 03/03/19 05:36 Dose: 0 mls/hr Documented by: [id number] Admin: 03/03/19 03:28 Dose: 125 mls/hr Documented by: [id number] Methylprednisolone (Solumedrol) 125 mg IV NOW STA Stop: 03/02/19 13:06 Last Admin: 03/02/19 13:19 Dose: 125 mg Documented by: [id number] Miscellaneous Information (Consult) 1 ea N/A UD ONE Stop: 03/02/19 13:33 Last Admin: 03/02/19 17:42 Dose: Not Given Documented by: [id number] Medical Decision Making Differential Diagnosis Differential diagnosis: Etiologies such as infections, reactive airway disease, COPD, pneumonia, pleural effusion, pulmonary edema, ARDS, pneumothorax, CHF, cardiac ischemia, cardiac tamponade, dysrhythmia, anemia, pulmonary embolism, musculoskeletal, gastrointestinal process, as well as others were entertained. Medical Records Attestation: I reviewed the patient's medical records. Home Medications Current Medication List: was personally reviewed by me Laboratory Data Attestation: I reviewed the patient's lab results. Result diagrams: 03/03/19 04:54 03/03/19 04:44 Lab Results 03/02/19 03/02/19 03/02/19 Range/Units 12:00 12:00 12:00 WBC 20.61 H (4.8-10.8) K/uL RBC 4.86 (4.2-5.4) M/uL Hgb 14.2 (12.0-16.0) g/dL Hct 41.3 (37-47) % MCV 85.0 (80-100) fL MCH 29.2 (25-34) pg MCHC 34.4 (32-36) g/dL RDW Std Deviation 43.5 (36.4-46.3) fL RDW Coeff of Angelique 14.0 (11.5-14.5) % Plt Count 452 H (130-400) K/uL MPV 9.6 (7.4-10.4) fL Immature Gran % (Auto) 0.5 % Neut % (Auto) 88.5 % Lymph % (Auto) 7.2 % [place] % (Auto) 3.8 % Eos % (Auto) 0.0 % Baso % (Auto) 0.0 % Immature Gran # (Auto) 0.10 H (0.00-0.02) K/uL Neut # (Auto) 18.23 H (1.4-6.5) K/uL Lymph # (Auto) 1.49 (1.2-3.4) K/uL [place] # (Auto) 0.79 H (0.11-0.59) K/uL Eos # (Auto) 0.00 (0-0.5) K/uL Baso # (Auto) 0.00 (0-0.2) K/uL PT 10.4 (9.0-12.0) Seconds INR 1.0 (0.9-1.1) ABG pH (7.35-7.45) ABG pCO2 (35-46) mmHg ABG pO2 (80-95) mm/Hg ABG HCO3 (19-24) mmol/L ABG O2 Saturation (90-95) % ABG Base Excess (-9-1.8) mEq/L Godfrey Test (Pos) Barometric Pressure mm/Hg Oxygen Given Sodium 130 L (136-145) mmol/L Potassium 4.6 (3.5-5.1) mmol/L Chloride 91 L (98-107) mmol/L Carbon Dioxide 31 (21-32) mmol/L Anion Gap 8.0 (3-11) BUN 19 H (7-18) mg/dl Creatinine 0.46 L (0.6-1.2) mg/dl Est Cr Clr Drug Dosing 56.5 ml/min Est GFR ( Amer) 102.2 Est GFR (Non-Af Amer) 88.2 BUN/Creatinine Ratio 42.1 H (10-20) Glucose 111 H (70-99) mg/dl POC Glucose (70-99) POC Lactic Acid Titi (0.90-1.70) mmol/L Calcium 9.6 (8.5-10.1) mg/dl Phosphorus (2.5-4.9) mg/dl Magnesium 2.0 (1.8-2.4) mg/dl Total Bilirubin 0.3 (0.2-1) mg/dl AST 15 (15-37) U/L ALT 15 (12-78) U/L Alkaline Phosphatase 60 (45-117) U/L Troponin I 0.347 H* (0-0.045) ng/ml NT-Pro-B Natriuret Pep 32272 H (0-1800) pg/ml Total Protein 6.7 (6.4-8.2) gm/dl Albumin 2.6 L (3.4-5.0) gm/dl Globulin 4.1 H (2.5-4.0) gm/dl Albumin/Globulin Ratio 0.6 L (0.9-2) Lipase 57 L (73-393) U/L Procalcitonin (0-0.5) ng/ml Nasal Screen MRSA (PCR) (Negative) Random Vancomycin mcg/ml Influenza Type A (PCR) (Neg) Influenza Type B (PCR) (Neg) 03/02/19 03/02/19 03/02/19 Range/Units 12:00 12:07 13:36 WBC (4.8-10.8) K/uL RBC (4.2-5.4) M/uL Hgb (12.0-16.0) g/dL Hct (37-47) % MCV (80-100) fL MCH (25-34) pg MCHC (32-36) g/dL RDW Std Deviation (36.4-46.3) fL RDW Coeff of Angelique (11.5-14.5) % Plt Count (130-400) K/uL MPV (7.4-10.4) fL Immature Gran % (Auto) % Neut % (Auto) % Lymph % (Auto) % [place] % (Auto) % Eos % (Auto) % Baso % (Auto) % Immature Gran # (Auto) (0.00-0.02) K/uL Neut # (Auto) (1.4-6.5) K/uL Lymph # (Auto) (1.2-3.4) K/uL [place] # (Auto) (0.11-0.59) K/uL Eos # (Auto) (0-0.5) K/uL Baso # (Auto) (0-0.2) K/uL PT (9.0-12.0) Seconds INR (0.9-1.1) ABG pH 7.38 (7.35-7.45) ABG pCO2 53 H (35-46) mmHg ABG pO2 116 H (80-95) mm/Hg ABG HCO3 31 H (19-24) mmol/L ABG O2 Saturation 98.2 H (90-95) % ABG Base Excess 4.1 H (-9-1.8) mEq/L Godfrey Test Pos (Pos) Barometric Pressure 733.7 mm/Hg Oxygen Given 40% Sodium (136-145) mmol/L Potassium (3.5-5.1) mmol/L Chloride (98-107) mmol/L Carbon Dioxide (21-32) mmol/L Anion Gap (3-11) BUN (7-18) mg/dl Creatinine (0.6-1.2) mg/dl Est Cr Clr Drug Dosing ml/min Est GFR ( Amer) Est GFR (Non-Af Amer) BUN/Creatinine Ratio (10-20) Glucose (70-99) mg/dl POC Glucose (70-99) POC Lactic Acid Titi 0.74 L (0.90-1.70) mmol/L Calcium (8.5-10.1) mg/dl Phosphorus (2.5-4.9) mg/dl Magnesium (1.8-2.4) mg/dl Total Bilirubin (0.2-1) mg/dl AST (15-37) U/L ALT (12-78) U/L Alkaline Phosphatase (45-117) U/L Troponin I (0-0.045) ng/ml NT-Pro-B Natriuret Pep (0-1800) pg/ml Total Protein (6.4-8.2) gm/dl Albumin (3.4-5.0) gm/dl Globulin (2.5-4.0) gm/dl Albumin/Globulin Ratio (0.9-2) Lipase (73-393) U/L Procalcitonin 0.11 (0-0.5) ng/ml Nasal Screen MRSA (PCR) (Negative) Random Vancomycin mcg/ml Influenza Type A (PCR) (Neg) Influenza Type B (PCR) (Neg) 03/02/19 03/02/19 03/02/19 Range/Units 15:35 17:47 17:55 WBC (4.8-10.8) K/uL RBC (4.2-5.4) M/uL Hgb (12.0-16.0) g/dL Hct (37-47) % MCV (80-100) fL MCH (25-34) pg MCHC (32-36) g/dL RDW Std Deviation (36.4-46.3) fL RDW Coeff of Angelique (11.5-14.5) % Plt Count (130-400) K/uL MPV (7.4-10.4) fL Immature Gran % (Auto) % Neut % (Auto) % Lymph % (Auto) % [place] % (Auto) % Eos % (Auto) % Baso % (Auto) % Immature Gran # (Auto) (0.00-0.02) K/uL Neut # (Auto) (1.4-6.5) K/uL Lymph # (Auto) (1.2-3.4) K/uL [place] # (Auto) (0.11-0.59) K/uL Eos # (Auto) (0-0.5) K/uL Baso # (Auto) (0-0.2) K/uL PT (9.0-12.0) Seconds INR (0.9-1.1) ABG pH (7.35-7.45) ABG pCO2 (35-46) mmHg ABG pO2 (80-95) mm/Hg ABG HCO3 (19-24) mmol/L ABG O2 Saturation (90-95) % ABG Base Excess (-9-1.8) mEq/L Godfrey Test (Pos) Barometric Pressure mm/Hg Oxygen Given Sodium (136-145) mmol/L Potassium (3.5-5.1) mmol/L Chloride (98-107) mmol/L Carbon Dioxide (21-32) mmol/L Anion Gap (3-11) BUN (7-18) mg/dl Creatinine (0.6-1.2) mg/dl Est Cr Clr Drug Dosing ml/min Est GFR ( Amer) Est GFR (Non-Af Amer) BUN/Creatinine Ratio (10-20) Glucose (70-99) mg/dl POC Glucose 107 H (70-99) POC Lactic Acid Titi (0.90-1.70) mmol/L Calcium (8.5-10.1) mg/dl Phosphorus (2.5-4.9) mg/dl Magnesium (1.8-2.4) mg/dl Total Bilirubin (0.2-1) mg/dl AST (15-37) U/L ALT (12-78) U/L Alkaline Phosphatase (45-117) U/L Troponin I 0.312 H* (0-0.045) ng/ml NT-Pro-B Natriuret Pep (0-1800) pg/ml Total Protein (6.4-8.2) gm/dl Albumin (3.4-5.0) gm/dl Globulin (2.5-4.0) gm/dl Albumin/Globulin Ratio (0.9-2) Lipase (73-393) U/L Procalcitonin (0-0.5) ng/ml Nasal Screen MRSA (PCR) (Negative) Random Vancomycin mcg/ml Influenza Type A (PCR) Pos for Influ A A* (Neg) Influenza Type B (PCR) Neg for Influ B (Neg) 03/02/19 03/02/19 03/03/19 Range/Units 20:25 23:01 00:14 WBC (4.8-10.8) K/uL RBC (4.2-5.4) M/uL Hgb (12.0-16.0) g/dL Hct (37-47) % MCV (80-100) fL MCH (25-34) pg MCHC (32-36) g/dL RDW Std Deviation (36.4-46.3) fL RDW Coeff of Angelique (11.5-14.5) % Plt Count (130-400) K/uL MPV (7.4-10.4) fL Immature Gran % (Auto) % Neut % (Auto) % Lymph % (Auto) % [place] % (Auto) % Eos % (Auto) % Baso % (Auto) % Immature Gran # (Auto) (0.00-0.02) K/uL Neut # (Auto) (1.4-6.5) K/uL Lymph # (Auto) (1.2-3.4) K/uL [place] # (Auto) (0.11-0.59) K/uL Eos # (Auto) (0-0.5) K/uL Baso # (Auto) (0-0.2) K/uL PT (9.0-12.0) Seconds INR (0.9-1.1) ABG pH (7.35-7.45) ABG pCO2 (35-46) mmHg ABG pO2 (80-95) mm/Hg ABG HCO3 (19-24) mmol/L ABG O2 Saturation (90-95) % ABG Base Excess (-9-1.8) mEq/L Godfrey Test (Pos) Barometric Pressure mm/Hg Oxygen Given Sodium (136-145) mmol/L Potassium (3.5-5.1) mmol/L Chloride (98-107) mmol/L Carbon Dioxide (21-32) mmol/L Anion Gap (3-11) BUN (7-18) mg/dl Creatinine (0.6-1.2) mg/dl Est Cr Clr Drug Dosing ml/min Est GFR ( Amer) Est GFR (Non-Af Amer) BUN/Creatinine Ratio (10-20) Glucose (70-99) mg/dl POC Glucose 109 H (70-99) POC Lactic Acid Titi (0.90-1.70) mmol/L Calcium (8.5-10.1) mg/dl Phosphorus (2.5-4.9) mg/dl Magnesium (1.8-2.4) mg/dl Total Bilirubin (0.2-1) mg/dl AST (15-37) U/L ALT (12-78) U/L Alkaline Phosphatase (45-117) U/L Troponin I 0.188 H* (0-0.045) ng/ml NT-Pro-B Natriuret Pep (0-1800) pg/ml Total Protein (6.4-8.2) gm/dl Albumin (3.4-5.0) gm/dl Globulin (2.5-4.0) gm/dl Albumin/Globulin Ratio (0.9-2) Lipase (73-393) U/L Procalcitonin (0-0.5) ng/ml Nasal Screen MRSA (PCR) Negative (Negative) Random Vancomycin mcg/ml Influenza Type A (PCR) (Neg) Influenza Type B (PCR) (Neg) 03/03/19 03/03/19 03/03/19 Range/Units 04:44 04:54 05:00 WBC 12.81 H (4.8-10.8) K/uL RBC 5.42 H (4.2-5.4) M/uL Hgb 15.4 (12.0-16.0) g/dL Hct 47.0 (37-47) % MCV 86.7 (80-100) fL MCH 28.4 (25-34) pg MCHC 32.8 (32-36) g/dL RDW Std Deviation 44.8 (36.4-46.3) fL RDW Coeff of Angelique 14.1 (11.5-14.5) % Plt Count 427 H (130-400) K/uL MPV 9.4 (7.4-10.4) fL Immature Gran % (Auto) 0.9 % Neut % (Auto) 89.6 % Lymph % (Auto) 3.6 % [place] % (Auto) 5.3 % Eos % (Auto) 0.0 % Baso % (Auto) 0.6 % Immature Gran # (Auto) 0.11 H (0.00-0.02) K/uL Neut # (Auto) 11.48 H (1.4-6.5) K/uL Lymph # (Auto) 0.46 L (1.2-3.4) K/uL [place] # (Auto) 0.68 H (0.11-0.59) K/uL Eos # (Auto) 0.00 (0-0.5) K/uL Baso # (Auto) 0.08 (0-0.2) K/uL PT (9.0-12.0) Seconds INR (0.9-1.1) ABG pH (7.35-7.45) ABG pCO2 (35-46) mmHg ABG pO2 (80-95) mm/Hg ABG HCO3 (19-24) mmol/L ABG O2 Saturation (90-95) % ABG Base Excess (-9-1.8) mEq/L Godfrey Test (Pos) Barometric Pressure mm/Hg Oxygen Given Sodium 135 L (136-145) mmol/L Potassium 4.1 (3.5-5.1) mmol/L Chloride 94 L (98-107) mmol/L Carbon Dioxide 31 (21-32) mmol/L Anion Gap 10.0 (3-11) BUN 25 H (7-18) mg/dl Creatinine 0.59 L (0.6-1.2) mg/dl Est Cr Clr Drug Dosing 44.1 ml/min Est GFR ( Amer) 94.2 Est GFR (Non-Af Amer) 81.3 BUN/Creatinine Ratio 43.5 H (10-20) Glucose 103 H (70-99) mg/dl POC Glucose 100 H (70-99) POC Lactic Acid Titi (0.90-1.70) mmol/L Calcium 9.0 (8.5-10.1) mg/dl Phosphorus 4.5 (2.5-4.9) mg/dl Magnesium 2.0 (1.8-2.4) mg/dl Total Bilirubin (0.2-1) mg/dl AST (15-37) U/L ALT (12-78) U/L Alkaline Phosphatase (45-117) U/L Troponin I (0-0.045) ng/ml NT-Pro-B Natriuret Pep (0-1800) pg/ml Total Protein (6.4-8.2) gm/dl Albumin (3.4-5.0) gm/dl Globulin (2.5-4.0) gm/dl Albumin/Globulin Ratio (0.9-2) Lipase (73-393) U/L Procalcitonin (0-0.5) ng/ml Nasal Screen MRSA (PCR) (Negative) Random Vancomycin mcg/ml Influenza Type A (PCR) (Neg) Influenza Type B (PCR) (Neg) 03/03/19 03/03/19 03/03/19 Range/Units 11:09 11:51 16:35 WBC (4.8-10.8) K/uL RBC (4.2-5.4) M/uL Hgb (12.0-16.0) g/dL Hct (37-47) % MCV (80-100) fL MCH (25-34) pg MCHC (32-36) g/dL RDW Std Deviation (36.4-46.3) fL RDW Coeff of Angelique (11.5-14.5) % Plt Count (130-400) K/uL MPV (7.4-10.4) fL Immature Gran % (Auto) % Neut % (Auto) % Lymph % (Auto) % [place] % (Auto) % Eos % (Auto) % Baso % (Auto) % Immature Gran # (Auto) (0.00-0.02) K/uL Neut # (Auto) (1.4-6.5) K/uL Lymph # (Auto) (1.2-3.4) K/uL [place] # (Auto) (0.11-0.59) K/uL Eos # (Auto) (0-0.5) K/uL Baso # (Auto) (0-0.2) K/uL PT (9.0-12.0) Seconds INR (0.9-1.1) ABG pH (7.35-7.45) ABG pCO2 (35-46) mmHg ABG pO2 (80-95) mm/Hg ABG HCO3 (19-24) mmol/L ABG O2 Saturation (90-95) % ABG Base Excess (-9-1.8) mEq/L Godfrey Test (Pos) Barometric Pressure mm/Hg Oxygen Given Sodium (136-145) mmol/L Potassium (3.5-5.1) mmol/L Chloride (98-107) mmol/L Carbon Dioxide (21-32) mmol/L Anion Gap (3-11) BUN (7-18) mg/dl Creatinine (0.6-1.2) mg/dl Est Cr Clr Drug Dosing ml/min Est GFR ( Amer) Est GFR (Non-Af Amer) BUN/Creatinine Ratio (10-20) Glucose (70-99) mg/dl POC Glucose 115 H 105 H (70-99) POC Lactic Acid Titi (0.90-1.70) mmol/L Calcium (8.5-10.1) mg/dl Phosphorus (2.5-4.9) mg/dl Magnesium (1.8-2.4) mg/dl Total Bilirubin (0.2-1) mg/dl AST (15-37) U/L ALT (12-78) U/L Alkaline Phosphatase (45-117) U/L Troponin I (0-0.045) ng/ml NT-Pro-B Natriuret Pep (0-1800) pg/ml Total Protein (6.4-8.2) gm/dl Albumin (3.4-5.0) gm/dl Globulin (2.5-4.0) gm/dl Albumin/Globulin Ratio (0.9-2) Lipase (73-393) U/L Procalcitonin (0-0.5) ng/ml Nasal Screen MRSA (PCR) (Negative) Random Vancomycin 34.7 mcg/ml Influenza Type A (PCR) (Neg) Influenza Type B (PCR) (Neg) Imaging Data Radiologist's Impression: Radiology results as stated below per my review and the radiologist's interpretation: XR chest 1V portable CLINICAL HISTORY: 88 years-old Female presenting with sob. TECHNIQUE: Portable upright AP view of the chest was obtained. COMPARISON: 02/26/2019. FINDINGS: The patient is rotated. Atherosclerosis of the aortic arch. Cardiac silhouette normal in size. Heterogeneity of lung parenchyma with patchy opacities in the left upper and mid lung.e no large effusion or pneumothorax. Scoliotic curvature and extensive degenerative changes of the spine. Degenerative changes of bilateral glenohumeral joints. Suspected underlying osteopenia. IMPRESSION: 1. Interval development of patchy infiltrates in the left upper and mid lung concerning for pneumonia. This is superimposed on chronic lung disease. Electronically signed by: Guzman Aponte M.D. 03/02/2019 1:28 PM ECG Data Attestation: I personally reviewed and interpreted this ECG as follows: Indication: SOB/dyspnea Rate (beats per minute): 134 Rhythm: sinus tachycardia Findings: + PVC (frequent); no ST elevation Comparison ECG Date: from (02/26/19) Change: no significant change Blood Pressure Blood Pressure Findings: Normal blood pressure Blood Pressure Disposition: further management by hospitalist ELIANA Narrative Patient well-appearing here with obvious increased work of breathing. Patient initially refused intubation at bedside discussion while on additional oxygen support. Patient was immediately placed on BiPAP due to her work of breathing, significant past medical history and concern for possible additional need of intubation. Additional duo nebs, steroids, blood work, chest x-ray performed. Antibiotics given after blood cultures drawn. Patient's oxygen saturations improved on BiPAP, her respiratory rate did not. Patient's retractions appeared to improve, however patient with persistently significantly elevated rate. Patient did not report any subjective sense of improvement either. While patient on BiPAP, I again discussed with her her feelings regarding intubation. Patient again refused. Patient was awake and alert and oriented during both of these discussions. On review of EMR, patient had previously been a full code and she was last admitted. Patient was found here to have a combination of pneumonia, congestive heart failure, and likely COPD exacerbation. Influenza did not result until later however was found to be positive. After discussion with hospitalist for admission, they came and examined the patient and at that time again discussed intubation at this time she was in agreement. All preparations are being made to intubate the patient in a controlled manner at bedside, the hatchery laborer showed up and asked that we wait as he felt he could make adjustments to her BiPAP settings and continue monitor closely and that she may not need intubation. He again discussed with family her current condition and family was in agreement with this plan. Patient ultimately transferred to the intensive care unit for additional management. Impression & Plan Respiratory distress, PNA (pneumonia), Hypoxia, Elevated troponin, Influenza A, Acute respiratory failure with hypoxia, Acute exacerbation of chronic obstructive airways disease Critical Care Time I have personally spent greater than 60 minutes of critical care time in the direct management of this patient. This includes bedside care, interpretation of diagnostic studies, and testing, discussion with consultants, patient, and family members, and other required patient management activities. This 60 minutes is in excess of all separately billable procedures. Critical Care Time: Yes Total Critical Care Time: 60 Discharge Plan Visit Data *Final* Discharge Date/Time: 03/02/19 15:37 Chief Complaint: Respiratory Problems ED Provider: Ingrid Hidalgo Discharge Problem: Respiratory distress, PNA (pneumonia), Hypoxia, Elevated troponin, Influenza A, Acute respiratory failure with hypoxia, Acute exacerbation of chronic obstruct ilya airways disease Patient Disposition: Admitted As Inpatient Condition: Critical Discharge Instructions Interventions: ED Discharge Assessment Last Done: 03/02/19 15:37 The scribe's documentation has been prepared under my direction and personally reviewed by me in its entirety. I confirm that the note above accurately reflects all work, treatment, procedures, and medical decision making performed by me.
[2019-03-04] MEDS: LEVALBUTEROL 1.25MG/0.5ML NEB INH SCH ×7 (00:01→23:31)
[2019-03-04] MEDS: methylPREDNISolone 40 MG in SYRINGE 0 ML IV SCH (03:18)
[2019-03-04 05:12] LABS: Hematocrit (blood only) 45.9 % (37-47); Hemoglobin 14.9 g/dL (12.0-16.0); Mean Corpuscular Hgb Conc 32.5 g/dL (32-36); Mean Corpuscular Volume 87.9 fL (80-100); Mean Platelet Volume 9.1 fL (7.4-10.4); Platelet Count 402 K/uL (130-400); RDW Coefficient of Variation 14.2 % (11.5-14.5); RDW Standard Deviation 46.1 fL (36.4-46.3); Red Blood Count 5.22 M/uL (4.2-5.4); White Blood Count 12.54 K/uL (4.8-10.8)
[2019-03-04] MEDS: CEFEPIME 2,000 MG in SYRINGE 7.5 ML IV SCH ×2 (05:34→19:17)
[2019-03-04 05:36] LABS: BUN Creatinine Ratio 61.7 (10-20); Calcium 9.2 mg/dl (8.5-10.1); Creatinine Clr Calc Pharmacy 35.1 ml/min; Est GFR (African American) 83.2; Est GFR (Non-African American) 71.8; Magnesium 2.3 mg/dl (1.8-2.4); Potassium 4.5 mmol/L (3.5-5.1)
[2019-03-04 05:38] LABS: Basophils # (auto) 0.01 K/uL (0-0.2); Basophils % (auto) 0.1 %; Immature Granulocytes # (auto) 0.14 K/uL (0.00-0.02); Immature Granulocytes % (auto) 1.1 %; Lymphocytes # (auto) 1.68 K/uL (1.2-3.4); Lymphocytes % (auto) 13.4 %; Monocytes # (auto) 0.65 K/uL (0.11-0.59); Monocytes % (auto) 5.2 %; Neutrophils # (auto) 10.06 K/uL (1.4-6.5); Neutrophils % (auto) 80.2 %; RBC Morphology Unremarkable
[2019-03-04 06:00] LABS: Phosphorus 3.6 mg/dl (2.5-4.9)
[2019-03-04] MEDS: IPRATROPIUM BROMIDE NEB SOLN 0.02% 2.5 ML VIAL INH SCH ×6 (06:17→23:31)
[2019-03-04] MEDS ORDERED: VANCOMYCIN TROUGH ONE (07:30)
--- NOTE | 2019-03-04 07:43 | XRay Report ---
XR chest 1V portable HISTORY: Abnormal chest x-ray. Upper lobe nodular densities. COMPARISON: Chest 03/03/2019. FINDINGS: No change in the left lung nodular densities. The heart is normal in size. No pneumothorax. Emphysema. There are new right basilar densities. The patient is slightly rotated on this study. No evidence for pulmonary edema. IMPRESSION: 1. No change in the left lung nodular densities. 2. Progressive opacification within the right lung base. This may represent atelectasis or pneumonia could be secondary to aspiration. Electronically signed by: Christopher Castro M.D. 03/04/2019 7:42 AM
[2019-03-04] MEDS: OSELTAMIVIR PHOSPHATE SUSP 30 MG/5 ML UDP PO SCH ×2 (08:14→22:06)
[2019-03-04] MEDS: HEPARIN SOD 5,000 UNIT/0.5 ML VIAL SQ SCH ×4 (08:14→22:29)
[2019-03-04] MEDS: DOCUSATE SODIUM 100 MG CAP PO SCH ×2 (09:47→22:23)
[2019-03-04] MEDS: PANTOprazole 40 MG TAB PO SCH (09:47)
[2019-03-04] MEDS: SENNA 8.6 MG TAB PO SCH (09:47)
--- NOTE | 2019-03-04 09:57 | Critical Care Progress Note ---
Date of Service March 04, 2019 Assessment & Plan (1) Acute respiratory failure: Neuro- metabolic encephalopathy from pneumonia and respiratory distress improved CV- HD stable. history of diastolic heart failure. increased troponin likely demand and hypoxia Pulmonary- acute respiratory failure likely multifactorial due to influenza and COPD exacerbation. for COPD albuterol, ipratropium, steroids - taper. continue BIPAP as needed. ID- sepsis with evidence of end organ dysfunction due to pneumonia. influenza on oseltamivir. continue cefepime for possible bacterial superinfection. follow cultures Renal- cr ok. BUN up encourage PO hyponatremia -chronic -improved GI- diet as tolerated. encourage PO Heme- leukocytosis improved. heparin proph Endocrine- keep blood sugar <180 Dispo- ok to transfer to out of ICU full code . Subjective on NC wore bipap last night poor appetite Physical Exam Vital Signs (Past 24 Hours): Last Vital Signs Temp 36.4 C L 03/04/19 08:00 Pulse 106 H 03/04/19 09:00 Resp 29 H 03/04/19 09:00 BP 129/67 03/04/19 09:00 Pulse Ox 96 03/04/19 09:00 Physical Exam: Constitutional: Comfortable NAD on NC HEENT: normocephalic atraumatic. MMM CV: tachycardic nl s1,s2 no murmurs rubs or gallops Lungs: decreased bilaterally. no accessory muscle use Abd: soft nontender nondistended. normal bowel sounds Ext: no edema. no cyanosis, no clubbing Skin: warm dry Neuro: awake answers questions. moving all extremities Psych: flat affect
--- NOTE | 2019-03-04 12:27 | Hospitalist Progress Note ---
Date of Service March 04, 2019 Assessment & Plan (1) Acute respiratory failure with hypoxia: This is an 88-year-old female resident of [facility] with a PMH of COPD, diastolic HF, chronic hyponatremia and GERD who presents with shortness of breath x 4 days and was found to have acute respiratory failure with hypoxia in the setting of possible hospital-acquired pneumonia, influenza A and COPD exacerbation. -Admitted to ICU on 03/02, Off BiPAP 03/04, Floor today (2) Sepsis: Treating for HCAP (3) PNA (pneumonia): Met sepsis criteria with leukocytosis of 20.6K, tachypnea at 38 and tachycardic with HR of 120 -CXR with interval development of patchy infiltrates on left upper and midlung -Blood cultures obtained -Lactate, pro-calcitonin within normal limits -Continue empiric coverage with cefepime and Vanco (4) Influenza A: Tamiflu, supportive measures -Droplet precautions (5) COPD (chronic obstructive pulmonary disease): Continue albuterol, ipratropium inh, solu-medrol (6) Elevated troponin: Troponin elevation of 0.347, likely demand ischemia -No chest pain or acute EKG changes (7) Hyponatremia: Chronic, history of SIADH -Has been on fluid restriction of 1.5 L in the past (8) Chronic diastolic CHF (congestive heart failure): Appears euvolemic. Received both fluids and IV Lasix in ED -BNP elevated but no evidence on physical exam or CXR to suggest volume overload -Continue monitoring volume status closely (9) GERD (gastroesophageal reflux disease): Continue PPI DVT Ppx: SQ heparin Code status: FULL per lengthy discussion with patient PCP: Monika Dispo: Admitted to ICU. Floor today, PT/OT Subjective Saw her in the ICU again today, son at bedside, she looks a lot better today ROS-No Headache, No Visual Changes, No Nausea, No Vomiting, No Fever, No Chills, No Neck Pain or Stiffness, No Chest Pain, No Palpitations,Less SOB, No THORNTON, + Cough, No Sputum, No Wheezing, No Abdominal Pain, No Diarrhea, No Hematemesis, No Hemoptysis, No Unexpected Weight Loss, No Flank pain, No Melena, No Hematochezia, No Frequency, No Urgency, No Burning, No Hematuria, No Rashes, No Diaphoresis. Appetite is Poor, Weak Physical Exam Gen-AAO x 3, NAD, On NC Head-NCAT, EOMI, PERRLA, Anicteric Sclera, No Posterior Pharyngeal Erythema Neck-Supple, No JVD, No Thyromegaly, No Masses, No LAD, No Bruits Lungs-Clear to Auscultation Bilaterally, No Rales, Scattered Rhonchi, No Wheezing, No Crepitus Chest-No S4, +S1, +S2, No S3, No Murmurs, No Rubs, No Gallops, No Ectopy Abdomen-Soft, Bowel Sounds Present, Non Tender, Non Distended, No Hepatomegaly, No Splenomegaly, No Palpable Masses, No Rebound, No Rigidity, No Guarding Musculoskeletal-Full Range of Motion Bilaterally, No CVAT Extremities-No Cyanosis, No Clubbing, No Edema Nuero-Cranial Nerves II-XII grossly intact, Motor WNL, DTRs WNL, Strength WNL, Non Focal Psych-Normal Mood Physical Exam Vital Signs (Past 24 Hours): Last Vital Signs Temp 36.6 C 03/04/19 11:59 Pulse 113 H 03/04/19 12:03 Resp 18 03/04/19 12:03 BP 135/65 03/04/19 11:59 Pulse Ox 98 03/04/19 12:03 Results & Data Laboratory Results Current Diagnoses Sepsis, unspecified organism (03/02/19) Hypo-osmolality and hyponatremia (03/02/19) Chronic diastolic (congestive) heart failure (03/02/19) Influenza due to other identified influenza virus with other respiratory manifestations (03/02/19) Pneumonia, unspecified organism (03/02/19) Chronic obstructive pulmonary disease, unspecified (03/02/19) Acute respiratory failure, unspecified whether with hypoxia or hypercapnia (03/02/19) Acute respiratory failure with hypoxia (03/02/19) Gastro-esophageal reflux disease without esophagitis (03/02/19) Abnormal levels of other serum enzymes (03/02/19) Allergies cat dander Allergy (Intermediate, Verified 03/02/19 12:21) ITCHY, RED RASH, CONGESTION dog dander Allergy (Intermediate, Verified 03/02/19 12:21) ITCHY, RED RASH, CONGESTION horse dander Allergy (Intermediate, Verified 03/02/19 12:21) ITCHY, RED RASH, CONGESTION rabbit dander Allergy (Intermediate, Verified 03/02/19 12:21) ITCHY, RED RASH, CONGESTION Height/Weight/Isolation Height 4 ft 11 in Weight 44.2 kg Isolation Type Droplet Precautions Chemistry 03/02/19 03/03/19 03/04/19 12:00 04:44 04:53 Sodium 130 L 135 L 136 Potassium 4.6 4.1 4.5 Chloride 91 L 94 L 95 L Carbon Dioxide 31 31 35 H Anion Gap 8.0 10.0 6.0 BUN 19 H 25 H 46 H D Creatinine 0.46 L 0.59 L 0.74 Glucose 111 H 103 H 105 H Microbiology 03/02/19 12:15 Blood Blood Culture - Preliminary No growth to date. 03/02/19 12:00 Blood Blood Culture - Preliminary No growth to date. (1) PNA (pneumonia) Laterality: left Lung location: upper lobe of lung Pneumonia type: due to unspecified organism Qualified Code(s): J18.1 - Lobar pneumonia, unspecified organism (2) GERD (gastroesophageal reflux disease) Esophagitis presence: esophagitis presence not specified Qualified Code(s): K21.9 - Gastro-esophageal reflux disease without esophagitis
[2019-03-05] MEDS: LEVALBUTEROL 1.25MG/0.5ML NEB INH SCH ×4 (03:52→15:37)
[2019-03-05] MEDS: IPRATROPIUM BROMIDE NEB SOLN 0.02% 2.5 ML VIAL INH SCH ×4 (03:52→15:37)
[2019-03-05] MEDS: CEFEPIME 2,000 MG in SYRINGE 7.5 ML IV SCH ×2 (06:29→17:48)
[2019-03-05] MEDS: HEPARIN SOD 5,000 UNIT/0.5 ML VIAL SQ SCH ×2 (07:34→20:36)
[2019-03-05] MEDS: DOCUSATE SODIUM 100 MG CAP PO SCH ×2 (07:35→20:34)
[2019-03-05] MEDS: PANTOprazole 40 MG TAB PO SCH (07:35)
[2019-03-05] MEDS: SENNA 8.6 MG TAB PO SCH (07:35)
[2019-03-05] MEDS: methylPREDNISolone 40 MG in SYRINGE 0 ML IV SCH (08:19)
[2019-03-05] MEDS: OSELTAMIVIR PHOSPHATE SUSP 30 MG/5 ML UDP PO SCH ×2 (08:19→20:44)
[2019-03-05 08:32] LABS: Hemoglobin 13.6 g/dL (12.0-16.0); Mean Corpuscular Hgb Conc 32.4 g/dL (32-36); Mean Corpuscular Volume 88.6 fL (80-100); Mean Platelet Volume 9.4 fL (7.4-10.4); Platelet Count 485 K/uL (130-400); RDW Coefficient of Variation 14.1 % (11.5-14.5); RDW Standard Deviation 46.1 fL (36.4-46.3); Red Blood Count 4.74 M/uL (4.2-5.4); White Blood Count 16.05 K/uL (4.8-10.8)
[2019-03-05 08:51] LABS: Albumin Level 2.4 gm/dl (3.4-5.0); BUN Creatinine Ratio 81.4 (10-20); Calcium 10.3 mg/dl (8.5-10.1); Creatinine Clr Calc Pharmacy 54.2 ml/min; Est GFR (African American) 100.8; Potassium 4.7 mmol/L (3.5-5.1)
[2019-03-05 08:55] LABS: Albumin Globulin Ratio 0.6 (0.9-2); Bilirubin,Total 0.3 mg/dl (0.2-1); Globulin 3.8 gm/dl (2.5-4.0); Total Protein 6.2 gm/dl (6.4-8.2)
[2019-03-05 09:25] LABS: Basophils # (auto) 0.01 K/uL (0-0.2); Basophils % (auto) 0.1 %; Immature Granulocytes # (auto) 0.25 K/uL (0.00-0.02); Immature Granulocytes % (auto) 1.6 %; Lymphocytes # (auto) 1.75 K/uL (1.2-3.4); Lymphocytes % (auto) 10.9 %; Monocytes # (auto) 0.72 K/uL (0.11-0.59); Monocytes % (auto) 4.5 %; Neutrophils # (auto) 13.32 K/uL (1.4-6.5); Neutrophils % (auto) 82.9 %
--- NOTE | 2019-03-05 10:18 | Hospitalist Progress Note ---
Date of Service March 05, 2019 Assessment & Plan (1) Acute respiratory failure with hypoxia: This is an 88-year-old female resident of [facility] with a PMH of COPD, diastolic HF, chronic hyponatremia and GERD who presents with shortness of breath x 4 days and was found to have acute respiratory failure with hypoxia in the setting of possible hospital-acquired pneumonia, influenza A and COPD exacerbation. -Admitted to ICU on 03/02, Off BiPAP 03/03, Floor 03/03 (2) Sepsis: Treating for HCAP (3) PNA (pneumonia): Met sepsis criteria with leukocytosis of 20.6K, tachypnea at 38 and tachycardic with HR of 120 -CXR with interval development of patchy infiltrates on left upper and midlung -Blood cultures obtained -Lactate, pro-calcitonin within normal limits -Continue empiric coverage with cefepime and Vanco (4) Influenza A: Tamiflu, supportive measures -Droplet precautions (5) COPD (chronic obstructive pulmonary disease): Continue albuterol, ipratropium inh, solu-medrol (6) Elevated troponin: Troponin elevation of 0.347, likely demand ischemia -No chest pain or acute EKG changes (7) Hyponatremia: Chronic, history of SIADH -Has been on fluid restriction of 1.5 L in the past (8) Chronic diastolic CHF (congestive heart failure): Appears euvolemic. Received both fluids and IV Lasix in ED -BNP elevated but no evidence on physical exam or CXR to suggest volume overload -Continue monitoring volume status closely (9) GERD (gastroesophageal reflux disease): Continue PPI DVT Ppx: SQ heparin Code status: FULL PCP: Monika Dispo: Admitted to ICU. Floor 03/03, PT/OT, OOB Subjective Saw her on the floor today, son at bedside, she looks better, but keeps saying she's ROS-No Headache, No Visual Changes, No Nausea, No Vomiting, No Fever, No Chills, No Neck Pain or Stiffness, No Chest Pain, No Palpitations,Less SOB, No THORNTON, + Cough, No Sputum, No Wheezing, No Abdominal Pain, No Diarrhea, No Hematemesis, No Hemoptysis, No Unexpected Weight Loss, No Flank pain, No Melena, No Hematochezia, No Frequency, No Urgency, No Burning, No Hematuria, No Rashes, No Diaphoresis. Appetite is Poor, Weak Physical Exam Gen-AAO x 3, NAD, On NC Head-NCAT, EOMI, PERRLA, Anicteric Sclera, No Posterior Pharyngeal Erythema Neck-Supple, No JVD, No Thyromegaly, No Masses, No LAD, No Bruits Lungs-Clear to Auscultation Bilaterally, No Rales, Scattered Rhonchi, No Wheezing, No Crepitus Chest-No S4, +S1, +S2, No S3, No Murmurs, No Rubs, No Gallops, No Ectopy Abdomen-Soft, Bowel Sounds Present, Non Tender, Non Distended, No Hepatomegaly, No Splenomegaly, No Palpable Masses, No Rebound, No Rigidity, No Guarding Musculoskeletal-Full Range of Motion Bilaterally, No CVAT Extremities-No Cyanosis, No Clubbing, No Edema Nuero-Cranial Nerves II-XII grossly intact, Motor WNL, DTRs WNL, Strength WNL, Non Focal Psych-Normal Mood Physical Exam Vital Signs (Past 24 Hours): Last Vital Signs Temp 36.7 C 03/05/19 08:32 Pulse 100 H 03/05/19 08:32 Resp 17 03/05/19 08:32 BP 135/71 03/05/19 08:32 Pulse Ox 99 03/05/19 08:32 Results & Data Laboratory Results Current Diagnoses Sepsis, unspecified organism (03/02/19) Hypo-osmolality and hyponatremia (03/02/19) Chronic diastolic (congestive) heart failure (03/02/19) Influenza due to other identified influenza virus with other respiratory manifestations (03/02/19) Lobar pneumonia, unspecified organism (03/02/19) Pneumonia, unspecified organism (03/02/19) Chronic obstructive pulmonary disease, unspecified (03/02/19) Acute respiratory failure, unspecified whether with hypoxia or hypercapnia (03/02/19) Acute respiratory failure with hypoxia (03/02/19) Gastro-esophageal reflux disease without esophagitis (03/02/19) Abnormal levels of other serum enzymes (03/02/19) Allergies cat dander Allergy (Intermediate, Verified 03/02/19 12:21) ITCHY, RED RASH, CONGESTION dog dander Allergy (Intermediate, Verified 03/02/19 12:21) ITCHY, RED RASH, CONGESTION horse dander Allergy (Intermediate, Verified 03/02/19 12:21) ITCHY, RED RASH, CONGESTION rabbit dander Allergy (Intermediate, Verified 03/02/19 12:21) ITCHY, RED RASH, CONGESTION Height/Weight/Isolation Height 4 ft 11 in Weight 45.5 kg Isolation Type Droplet Precautions Chemistry 03/04/19 03/05/19 04:53 08:00 Sodium 136 138 Potassium 4.5 4.7 Chloride 95 L 99 Carbon Dioxide 35 H 36 H Anion Gap 6.0 3.0 BUN 46 H D 39 H Creatinine 0.74 0.48 L Glucose 105 H 107 H Microbiology 03/02/19 12:15 Blood Blood Culture - Preliminary No growth to date. 03/02/19 12:00 Blood Blood Culture - Preliminary No growth to date. (1) PNA (pneumonia) Laterality: left Lung location: upper lobe of lung Pneumonia type: due to unspecified organism Qualified Code(s): J18.1 - Lobar pneumonia, unspecified organism (2) GERD (gastroesophageal reflux disease) Esophagitis presence: esophagitis presence not specified Qualified Code(s): K21.9 - Gastro-esophageal reflux disease without esophagitis
[2019-03-05] MEDS ORDERED: METOPROLOL TARTRATE 1 MG/ML VIAL IV STA (10:32)
[2019-03-05] MEDS ORDERED: IPRATROPIUM BROMIDE NEB SOLN 0.02% 2.5 ML VIAL INH PRN (17:20)
[2019-03-05] MEDS ORDERED: LEVALBUTEROL 1.25MG/0.5ML NEB INH PRN (17:21)
[2019-03-05] MEDS: METOPROLOL TARTRATE 25 MG TAB PO SCH (20:35)
[2019-03-06] MEDS: CEFEPIME 2,000 MG in SYRINGE 7.5 ML IV SCH (05:26)
[2019-03-06 06:08] LABS: Hematocrit (blood only) 41.7 % (37-47); Hemoglobin 13.6 g/dL (12.0-16.0); Mean Corpuscular Hgb Conc 32.6 g/dL (32-36); Mean Corpuscular Volume 88.7 fL (80-100); Mean Platelet Volume 9.1 fL (7.4-10.4); Platelet Count 523 K/uL (130-400); RDW Standard Deviation 45.8 fL (36.4-46.3); White Blood Count 18.63 K/uL (4.8-10.8)
[2019-03-06 06:29] LABS: BUN Creatinine Ratio 75.3 (10-20); Creatinine Clr Calc Pharmacy 49.1 ml/min; Est GFR (African American) 97.6; Est GFR (Non-African American) 84.2; Potassium 4.3 mmol/L (3.5-5.1)
[2019-03-06] MEDS: HEPARIN SOD 5,000 UNIT/0.5 ML VIAL SQ SCH ×2 (07:23→21:32)
[2019-03-06] MEDS ORDERED: VANCOMYCIN CONSULT ACTIVE PRN (07:41)
--- NOTE | 2019-03-06 07:41 | Hospitalist Progress Note ---
Date of Service March 06, 2019 Assessment & Plan (1) Acute respiratory failure with hypoxia: This is an 88-year-old female resident of [facility] with a PMH of COPD, diastolic HF, chronic hyponatremia and GERD who presents with shortness of breath x 4 days and was found to have acute respiratory failure with hypoxia in the setting of possible hospital-acquired pneumonia, influenza A and COPD exacerbation. -Admitted to ICU on 03/02, Off BiPAP 03/03, Floor 03/03 (2) Sepsis: Treating for HCAP, add Vanco, called ICU team to see her, Family wants everything done, d/w sons Chip and Pietro +hospital Delerium also present (3) PNA (pneumonia): Met sepsis criteria with leukocytosis of 20.6K, tachypnea at 38 and tachycardic with HR of 120 -CXR with interval development of patchy infiltrates on left upper and midlung -Panculture, Lactate, Procalcitonin -Continue empiric coverage with cefepime and Vanco (4) Influenza A: Tamiflu, supportive measures -Droplet precautions (5) COPD (chronic obstructive pulmonary disease): Continue albuterol, ipratropium inh, solu-medrol (6) Elevated troponin: Troponin elevation of 0.347, likely demand ischemia -No chest pain or acute EKG changes (7) Hyponatremia: Chronic, history of SIADH -Has been on fluid restriction of 1.5 L in the past (8) Chronic diastolic CHF (congestive heart failure): Appears euvolemic. Received both fluids and IV Lasix in ED -BNP elevated but no evidence on physical exam or CXR to suggest volume overload -Continue monitoring volume status closely (9) GERD (gastroesophageal reflux disease): Continue PPI DVT Ppx: SQ heparin Code status: FULL PCP: Monika Dispo: Admitted to ICU. Floor 03/03 Subjective Saw her on the floor today, son at bedside, she is confused and sundowning, everything hurts per son, she doesn't know who he is ROS-Offers no ROS, weak and confused Physical Exam Gen-Somnolent, NAD, On NC Head-NCAT, EOMI, PERRLA, Anicteric Sclera, No Posterior Pharyngeal Erythema Neck-Supple, No JVD, No Thyromegaly, No Masses, No LAD, No Bruits Lungs- Scattered Rhonchi, No Wheezing, No Crepitus Chest-No S4, +S1, +S2, No S3, No Murmurs, No Rubs, No Gallops, No Ectopy Abdomen-Soft, Bowel Sounds Present, Non Tender, Non Distended, No Hepatomegaly, No Splenomegaly, No Palpable Masses, No Rebound, No Rigidity, No Guarding Musculoskeletal-Full Range of Motion Bilaterally, No CVAT Extremities-No Cyanosis, No Clubbing, No Edema Nuero-Cranial Nerves II-XII grossly intact, Motor WNL, DTRs WNL, Strength WNL, Non Focal Psych-Somnolent Physical Exam Vital Signs (Past 24 Hours): Last Vital Signs Temp 36.5 C 03/06/19 07:24 Pulse 108 H 03/06/19 07:24 Resp 27 H 03/06/19 07:24 BP 165/87 H 03/06/19 07:24 Pulse Ox 98 03/06/19 07:24 Results & Data Laboratory Results Current Diagnoses Sepsis, unspecified organism (03/02/19) Hypo-osmolality and hyponatremia (03/02/19) Chronic diastolic (congestive) heart failure (03/02/19) Influenza due to other identified influenza virus with other respiratory manifestations (03/02/19) Lobar pneumonia, unspecified organism (03/02/19) Pneumonia, unspecified organism (03/02/19) Chronic obstructive pulmonary disease, unspecified (03/02/19) Acute respiratory failure, unspecified whether with hypoxia or hypercapnia (03/02/19) Acute respiratory failure with hypoxia (03/02/19) Gastro-esophageal reflux disease without esophagitis (03/02/19) Abnormal levels of other serum enzymes (03/02/19) Allergies cat dander Allergy (Intermediate, Verified 03/02/19 12:21) ITCHY, RED RASH, CONGESTION dog dander Allergy (Intermediate, Verified 03/02/19 12:21) ITCHY, RED RASH, CONGESTION horse dander Allergy (Intermediate, Verified 03/02/19 12:21) ITCHY, RED RASH, CONGESTION rabbit dander Allergy (Intermediate, Verified 03/02/19 12:21) ITCHY, RED RASH, CONGESTION Height/Weight/Isolation Height 4 ft 11 in Weight 45.9 kg Isolation Type Droplet Precautions CBC 03/02/19 03/02/19 03/02/19 12:00 12:00 12:00 WBC 20.61 H RBC 4.86 Hgb 14.2 Hct 41.3 MCV 85.0 MCH 29.2 MCHC 34.4 RDW Std Deviation 43.5 RDW Coeff of Angelique 14.0 Plt Count 452 H MPV 9.6 Immature Gran % (Auto) 0.5 Neut % (Auto) 88.5 Lymph % (Auto) 7.2 Carroll % (Auto) 3.8 Eos % (Auto) 0.0 Baso % (Auto) 0.0 Immature Gran # (Auto) 0.10 H Neut # (Auto) 18.23 H Lymph # (Auto) 1.49 Carroll # (Auto) 0.79 H Eos # (Auto) 0.00 Baso # (Auto) 0.00 RBC Morphology PT 10.4 INR 1.0 ABG pH ABG pCO2 ABG pO2 ABG HCO3 ABG O2 Saturation ABG Base Excess Godfrey Test Barometric Pressure Oxygen Given Sodium 130 L Potassium 4.6 Chloride 91 L Carbon Dioxide 31 Anion Gap 8.0 BUN 19 H Creatinine 0.46 L Est Cr Clr Drug Dosing 56.5 Est GFR ( Amer) 102.2 Est GFR (Non-Af Amer) 88.2 BUN/Creatinine Ratio 42.1 H Glucose 111 H POC Glucose POC Lactic Acid Titi Calcium 9.6 Phosphorus Magnesium 2.0 Total Bilirubin 0.3 AST 15 ALT 15 Alkaline Phosphatase 60 Troponin I 0.347 H* NT-Pro-B Natriuret Pep 35408 H Total Protein 6.7 Albumin 2.6 L Globulin 4.1 H Albumin/Globulin Ratio 0.6 L Lipase 57 L Procalcitonin Nasal Screen MRSA (PCR) Random Vancomycin Influenza Type A (PCR) Influenza Type B (PCR) 03/02/19 03/02/19 03/02/19 12:00 12:07 13:36 WBC RBC Hgb Hct MCV MCH MCHC RDW Std Deviation RDW Coeff of Angelique Plt Count MPV Immature Gran % (Auto) Neut % (Auto) Lymph % (Auto) Carroll % (Auto) Eos % (Auto) Baso % (Auto) Immature Gran # (Auto) Neut # (Auto) Lymph # (Auto) Carroll # (Auto) Eos # (Auto) Baso # (Auto) RBC Morphology PT INR ABG pH 7.38 ABG pCO2 53 H ABG pO2 116 H ABG HCO3 31 H ABG O2 Saturation 98.2 H ABG Base Excess 4.1 H Godfrey Test Pos Barometric Pressure 733.7 Oxygen Given 40% Sodium Potassium Chloride Carbon Dioxide Anion Gap BUN Creatinine Est Cr Clr Drug Dosing Est GFR ( Amer) Est GFR (Non-Af Amer) BUN/Creatinine Ratio Glucose POC Glucose POC Lactic Acid Titi 0.74 L Calcium Phosphorus Magnesium Total Bilirubin AST ALT Alkaline Phosphatase Troponin I NT-Pro-B Natriuret Pep Total Protein Albumin Globulin Albumin/Globulin Ratio Lipase Procalcitonin 0.11 Nasal Screen MRSA (PCR) Random Vancomycin Influenza Type A (PCR) Influenza Type B (PCR) 03/02/19 03/02/19 03/02/19 15:35 17:47 17:55 WBC RBC Hgb Hct MCV MCH MCHC RDW Std Deviation RDW Coeff of Angelique Plt Count MPV Immature Gran % (Auto) Neut % (Auto) Lymph % (Auto) Carroll % (Auto) Eos % (Auto) Baso % (Auto) Immature Gran # (Auto) Neut # (Auto) Lymph # (Auto) Carroll # (Auto) Eos # (Auto) Baso # (Auto) RBC Morphology PT INR ABG pH ABG pCO2 ABG pO2 ABG HCO3 ABG O2 Saturation ABG Base Excess Godfrey Test Barometric Pressure Oxygen Given Sodium Potassium Chloride Carbon Dioxide Anion Gap BUN Creatinine Est Cr Clr Drug Dosing Est GFR ( Amer) Est GFR (Non-Af Amer) BUN/Creatinine Ratio Glucose POC Glucose 107 H POC Lactic Acid Titi Calcium Phosphorus Magnesium Total Bilirubin AST ALT Alkaline Phosphatase Troponin I 0.312 H* NT-Pro-B Natriuret Pep Total Protein Albumin Globulin Albumin/Globulin Ratio Lipase Procalcitonin Nasal Screen MRSA (PCR) Random Vancomycin Influenza Type A (PCR) Pos for Influ A A* Influenza Type B (PCR) Neg for Influ B 03/02/19 03/02/19 03/03/19 20:25 23:01 00:14 WBC RBC Hgb Hct MCV MCH MCHC RDW Std Deviation RDW Coeff of Angelique Plt Count MPV Immature Gran % (Auto) Neut % (Auto) Lymph % (Auto) Carroll % (Auto) Eos % (Auto) Baso % (Auto) Immature Gran # (Auto) Neut # (Auto) Lymph # (Auto) Carroll # (Auto) Eos # (Auto) Baso # (Auto) RBC Morphology PT INR ABG pH ABG pCO2 ABG pO2 ABG HCO3 ABG O2 Saturation ABG Base Excess Godfrey Test Barometric Pressure Oxygen Given Sodium Potassium Chloride Carbon Dioxide Anion Gap BUN Creatinine Est Cr Clr Drug Dosing Est GFR ( Amer) Est GFR (Non-Af Amer) BUN/Creatinine Ratio Glucose POC Glucose 109 H POC Lactic Acid Titi Calcium Phosphorus Magnesium Total Bilirubin AST ALT Alkaline Phosphatase Troponin I 0.188 H* NT-Pro-B Natriuret Pep Total Protein Albumin Globulin Albumin/Globulin Ratio Lipase Procalcitonin Nasal Screen MRSA (PCR) Negative Random Vancomycin Influenza Type A (PCR) Influenza Type B (PCR) 03/03/19 03/03/19 03/03/19 04:44 04:54 05:00 WBC 12.81 H RBC 5.42 H Hgb 15.4 Hct 47.0 MCV 86.7 MCH 28.4 MCHC 32.8 RDW Std Deviation 44.8 RDW Coeff of Angelique 14.1 Plt Count 427 H MPV 9.4 Immature Gran % (Auto) 0.9 Neut % (Auto) 89.6 Lymph % (Auto) 3.6 Carroll % (Auto) 5.3 Eos % (Auto) 0.0 Baso % (Auto) 0.6 Immature Gran # (Auto) 0.11 H Neut # (Auto) 11.48 H Lymph # (Auto) 0.46 L Carroll # (Auto) 0.68 H Eos # (Auto) 0.00 Baso # (Auto) 0.08 RBC Morphology PT INR ABG pH ABG pCO2 ABG pO2 ABG HCO3 ABG O2 Saturation ABG Base Excess Godfrey Test Barometric Pressure Oxygen Given Sodium 135 L Potassium 4.1 Chloride 94 L Carbon Dioxide 31 Anion Gap 10.0 BUN 25 H Creatinine 0.59 L Est Cr Clr Drug Dosing 44.1 Est GFR ( Amer) 94.2 Est GFR (Non-Af Amer) 81.3 BUN/Creatinine Ratio 43.5 H Glucose 103 H POC Glucose 100 H POC Lactic Acid Titi Calcium 9.0 Phosphorus 4.5 Magnesium 2.0 Total Bilirubin AST ALT Alkaline Phosphatase Troponin I NT-Pro-B Natriuret Pep Total Protein Albumin Globulin Albumin/Globulin Ratio Lipase Procalcitonin Nasal Screen MRSA (PCR) Random Vancomycin Influenza Type A (PCR) Influenza Type B (PCR) 03/03/19 03/03/19 03/03/19 11:09 11:51 16:35 WBC RBC Hgb Hct MCV MCH MCHC RDW Std Deviation RDW Coeff of Angelique Plt Count MPV Immature Gran % (Auto) Neut % (Auto) Lymph % (Auto) Carroll % (Auto) Eos % (Auto) Baso % (Auto) Immature Gran # (Auto) Neut # (Auto) Lymph # (Auto) Carroll # (Auto) Eos # (Auto) Baso # (Auto) RBC Morphology PT INR ABG pH ABG pCO2 ABG pO2 ABG HCO3 ABG O2 Saturation ABG Base Excess Godfrey Test Barometric Pressure Oxygen Given Sodium Potassium Chloride Carbon Dioxide Anion Gap BUN Creatinine Est Cr Clr Drug Dosing Est GFR ( Amer) Est GFR (Non-Af Amer) BUN/Creatinine Ratio Glucose POC Glucose 115 H 105 H POC Lactic Acid Titi Calcium Phosphorus Magnesium Total Bilirubin AST ALT Alkaline Phosphatase Troponin I NT-Pro-B Natriuret Pep Total Protein Albumin Globulin Albumin/Globulin Ratio Lipase Procalcitonin Nasal Screen MRSA (PCR) Random Vancomycin 34.7 Influenza Type A (PCR) Influenza Type B (PCR) 03/04/19 03/04/19 03/05/19 04:53 04:53 08:00 WBC 12.54 H 16.05 H RBC 5.22 4.74 Hgb 14.9 13.6 Hct 45.9 42.0 MCV 87.9 88.6 MCH 28.5 28.7 MCHC 32.5 32.4 RDW Std Deviation 46.1 46.1 RDW Coeff of Angelique 14.2 14.1 Plt Count 402 H 485 H MPV 9.1 9.4 Immature Gran % (Auto) 1.1 1.6 Neut % (Auto) 80.2 82.9 Lymph % (Auto) 13.4 10.9 Carroll % (Auto) 5.2 4.5 Eos % (Auto) 0.0 0.0 Baso % (Auto) 0.1 0.1 Immature Gran # (Auto) 0.14 H 0.25 H Neut # (Auto) 10.06 H 13.32 H Lymph # (Auto) 1.68 1.75 Carroll # (Auto) 0.65 H 0.72 H Eos # (Auto) 0.00 0.00 Baso # (Auto) 0.01 0.01 RBC Morphology Unremarkable PT INR ABG pH ABG pCO2 ABG pO2 ABG HCO3 ABG O2 Saturation ABG Base Excess Godfrey Test Barometric Pressure Oxygen Given Sodium 136 Potassium 4.5 Chloride 95 L Carbon Dioxide 35 H Anion Gap 6.0 BUN 46 H D Creatinine 0.74 Est Cr Clr Drug Dosing 35.1 Est GFR ( Amer) 83.2 Est GFR (Non-Af Amer) 71.8 BUN/Creatinine Ratio 61.7 H Glucose 105 H POC Glucose POC Lactic Acid Titi Calcium 9.2 Phosphorus 3.6 Magnesium 2.3 Total Bilirubin AST ALT Alkaline Phosphatase Troponin I NT-Pro-B Natriuret Pep Total Protein Albumin Globulin Albumin/Globulin Ratio Lipase Procalcitonin Nasal Screen MRSA (PCR) Random Vancomycin Influenza Type A (PCR) Influenza Type B (PCR) 03/05/19 03/06/19 03/06/19 08:00 05:51 05:51 WBC 18.63 H RBC 4.70 Hgb 13.6 Hct 41.7 MCV 88.7 MCH 28.9 MCHC 32.6 RDW Std Deviation 45.8 RDW Coeff of Angelique 14.0 Plt Count 523 H MPV 9.1 Immature Gran % (Auto) Neut % (Auto) Lymph % (Auto) Carroll % (Auto) Eos % (Auto) Baso % (Auto) Immature Gran # (Auto) Neut # (Auto) Lymph # (Auto) Carroll # (Auto) Eos # (Auto) Baso # (Auto) RBC Morphology PT INR ABG pH ABG pCO2 ABG pO2 ABG HCO3 ABG O2 Saturation ABG Base Excess Godfrey Test Barometric Pressure Oxygen Given Sodium 138 141 Potassium 4.7 4.3 Chloride 99 102 Carbon Dioxide 36 H 35 H Anion Gap 3.0 4.0 BUN 39 H 40 H Creatinine 0.48 L 0.53 L Est Cr Clr Drug Dosing 54.2 49.1 Est GFR ( Amer) 100.8 97.6 Est GFR (Non-Af Amer) 87.0 84.2 BUN/Creatinine Ratio 81.4 H 75.3 H Glucose 107 H 124 H POC Glucose POC Lactic Acid Titi Calcium 10.3 H 10.0 Phosphorus 2.0 L D Magnesium Total Bilirubin 0.3 AST 7 L ALT 13 Alkaline Phosphatase 43 L Troponin I NT-Pro-B Natriuret Pep Total Protein 6.2 L Albumin 2.4 L Globulin 3.8 Albumin/Globulin Ratio 0.6 L Lipase Procalcitonin Nasal Screen MRSA (PCR) Random Vancomycin Influenza Type A (PCR) Influenza Type B (PCR) Chemistry 03/05/19 03/06/19 08:00 05:51 Sodium 138 141 Potassium 4.7 4.3 Chloride 99 102 Carbon Dioxide 36 H 35 H Anion Gap 3.0 4.0 BUN 39 H 40 H Creatinine 0.48 L 0.53 L Glucose 107 H 124 H Microbiology 03/02/19 12:15 Blood Blood Culture - Preliminary No growth to date. 03/02/19 12:00 Blood Blood Culture - Preliminary No growth to date. (1) PNA (pneumonia) Laterality: left Lung location: upper lobe of lung Pneumonia type: due to unspecified organism Qualified Code(s): J18.1 - Lobar pneumonia, unspecified organism (2) GERD (gastroesophageal reflux disease) Esophagitis presence: esophagitis presence not specified Qualified Code(s): K21.9 - Gastro-esophageal reflux disease without esophagitis
[2019-03-06] MEDS ORDERED: VANCOMYCIN HCL 1,250 MG in SODIUM CHLORIDE 0.9% 250 ML IV ONE (08:00)
--- NOTE | 2019-03-06 08:20 | Pulmonology Progress Note ---
Date of Service March 06, 2019 Assessment & Plan (1) Acute respiratory failure: Neuro- metabolic encephalopathy from pneumonia and respiratory distress improved but now more confused today. await ABG CV- HD stable. history of diastolic heart failure. Pulmonary- acute respiratory failure likely multifactorial due to influenza and COPD exacerbation. for COPD albuterol, ipratropium, steroids. BIPAP if needed. ID- sepsis with evidence of end organ dysfunction due to pneumonia. influenza on oseltamivir. continue cefepime for possible bacterial superinfection. follow cultures Renal- cr ok. BUN aobut the same hyponatremia -chronic -improved GI- diet if tolerated. Heme- leukocytosis remains elevated. heparin proph Endocrine- keep blood sugar <180 Dispo- if ABG ok may remain on current floor. will continue to reeval full code . Subjective more confused this morning per son was pulling NC off all night Physical Exam Vital Signs (Past 24 Hours): Last Vital Signs Temp 36.5 C 03/06/19 07:24 Pulse 108 H 03/06/19 07:24 Resp 27 H 03/06/19 07:24 BP 165/87 H 03/06/19 07:24 Pulse Ox 98 03/06/19 07:24 Physical Exam: Constitutional: Comfortable NAD on NC HEENT: normocephalic atraumatic. MMM CV: tachycardic nl s1,s2 no murmurs rubs or gallops Lungs: decreased bilaterally with some crackles. no accessory muscle use Abd: soft nontender nondistended. normal bowel sounds Ext: no edema. no cyanosis, no clubbing Skin: warm dry Neuro: lethargic answers some yes/ no questions but not consistently. moving all extremities Psych: lethargic
[2019-03-06 08:21] LABS: HCO3 ABG 37 mmol/L (19-24); Oxygen Saturation ABG 98.6 % (90-95); PCO2 ABG 67 mmHg (35-46); PO2 ABG 132 mm/Hg (80-95); pH ABG 7.36 (7.35-7.45)
[2019-03-06 08:22] LABS: Allen Test Pos (Pos)
[2019-03-06] MEDS: PANTOprazole 40 MG TAB PO SCH (08:32)
[2019-03-06] MEDS: SENNA 8.6 MG TAB PO SCH (08:32)
[2019-03-06] MEDS: OSELTAMIVIR PHOSPHATE SUSP 30 MG/5 ML UDP PO SCH ×2 (08:32→18:33)
[2019-03-06] MEDS: DOCUSATE SODIUM 100 MG CAP PO SCH ×2 (08:32→18:33)
[2019-03-06] MEDS: METOPROLOL TARTRATE 25 MG TAB PO SCH (08:32)
[2019-03-06] MEDS: methylPREDNISolone 40 MG in SYRINGE 0 ML IV SCH (08:32)
--- NOTE | 2019-03-06 09:00 | XRay Report ---
XR chest 1V portable CLINICAL HISTORY: 88 years-old Female presenting with Cough, Desat. TECHNIQUE: Portable upright AP view of the chest was obtained. COMPARISON: 03/04/2019. FINDINGS: The patient is URDU rotated. Atherosclerosis of the aortic arch. Cardiac silhouette normal in size. Ex tensive heterogeneity of lung parenchyma with prominent reticular opacities, left greater than right. These may be slightly worsened from prior exam. Persistent right pleural effusion suspected. No larg e pneumothorax. Osteopenia. Scoliosis and degenerative changes of the spine. Old left anterolateral r ib fractures suspected. Upper abdomen normal. IMPRESSION: 1. Apparent slight interval worsening of diffuse reticular opacities, left greater than right. This may indicate congestive change or a developing infiltrate. Attention on follow-up. 2. Right pleural effusion versus elevation right hemidiaphragm unchanged. Electronically signed by: Guzman Aponte M.D. 03/06/2019 8:58 AM
--- NOTE | 2019-03-06 09:27 | CT Scan Report ---
CT head/brain wo con CLINICAL HISTORY: 88 years-old Female presenting with Altered mental status, weakness, confusion. TECHNIQUE: Multidetector CT imaging of the head was performed without the use of intravenous contrast . IV contrast: None. One or more dose lowering techniques were used consistent with the principles of ALARA (as low as reasonably achievable), including automatic exposure control, mA or kV adjustment t o individual patient size, and/or use of iterative reconstruction. COMPARISON: 12/09/2018. CT DOSE (mGy.cm): The estimated cumulative dose is 1074.96 mGy.cm. FINDINGS: [employer] Production topogram: Unremarkable. Proportional ventricular and sulcal prominence, likely age-related parenchymal volume loss. No hemorr felisa. Periventricular and subcortical white matter hypoattenuation, nonspecific but likely indicative of chronic small vessel ischemic change. Old lacunar infarcts in the basal ganglia. A left choroidal fissure cyst noted. No acute territorial infarct. No mass effect or midline shift. No extra-axial fl uid collection. Paranasal sinuses and mastoid air cells clear. Calvarium intact. Intracranial atheros clerosis noted. IMPRESSION: 1. Chronic small vessel ischemic change. No acute intracranial abnormality. Electronically signed by: Guzman Aponte M.D. 03/06/2019 9:25 AM
[2019-03-06] MEDS: FUROSEMIDE 20 MG in SYRINGE 0 ML IV SCH ×2 (10:21→21:32)
--- NOTE | 2019-03-06 10:23 | Pharmacy Report ---
Pharmacy Abx Initial Consult - Date of Service March 06, 2019 - Pharmacy Dosing Scope Date of Consult: 03/06/19 Consultation requested by: Dr. Burdick Pharmacy is consulted to initiate vancomycin IV dosing therapy, order appropriate labs and adjust drug dose/frequency. - Subjective The patient is a 88 year old F admitted on 03/02/19 15:02. - Objective Height: 4 ft 11 in Weight: 45.9 kg Vital Signs (Past 12hrs): Vital Signs Temp Pulse Resp BP Pulse Ox 03/06/19 09:00 102 H 03/06/19 07:24 36.5 C 108 H 27 H 165/87 H 98 03/06/19 03:12 84 03/06/19 03:00 36.5 C 106 H 19 167/84 H 95 03/05/19 23:00 36.5 C 88 16 84/66 L 92 Lab Results (24hrs): Laboratory Tests (24 Hours) 03/06/19 03/06/19 03/06/19 08:09 05:51 05:51 WBC 18.63 H Creatinine 0.53 L Est Cr Clr Drug Dosing 49.1 Procalcitonin < 0.05 Micro Results: 03/06/19 08:16 Blood Culture - Pending Blood 03/06/19 08:09 Blood Culture - Pending Blood - Risk Factors for Resistance * Current hospitalization of approximately 5 days * Resident at [facility] - Assessment & Plan Assessment 88 year old F currently receiving treatment with oseltamavir for positive influenza A and empiric cefepime for possible secondary bacterial infection is now ordered vancomycin due to worsening opacities on chest xray, leukocytosis, and persistent tachypnea/tachycardia despite broad spectrum antibiotic therapy. Plan Patient previously received 2 doses of vancomycin on 03/02 and 03/03 Vancomycin IV * Estimated PK Parameters: Vd 0.7 L/kg (32 L), Paul 0.045 hr-1, t1/2 15.4 hr * Loading dose: 1250 mg IV (27 mg/kg) * Maintenance dose: 750 mg IV (16 mg/kg) every 18 hours * Goal trough level for HAP : 15 to 20 mcg/mL * Trough level ordered prior to third dose at 2000 tomorrow (03/07) to check safety and efficacy of current vancomycin regimen * Of note, MRSA nasal swab on 03/02 was negative and procalcitonin remains low (0.11 on 03/02 and now undetectable <0.05) * Vancomycin addition reasonable due to worsening patient condition despite broad spectrum antibiotics Physician requested dose reduction in cefepime from 2 g IV q12h to 1 g IV q12h due to patient size. Oseltamavir will be continued through tomorrow to finish full course of therapy for positive influenza A. * Dosed appropriately based on CrCl of 49 - 30 mg PO BID Pharmacy will continue to follow and will adjust dose/frequency as necessary. Thank you.
[2019-03-06] MEDS ORDERED: METOPROLOL TARTRATE 1 MG/ML VIAL IV PRN (12:00)
[2019-03-06] MEDS: CEFEPIME 1,000 MG in SYRINGE 0 ML IV SCH (18:32)
[2019-03-06] MEDS: METOPROLOL TARTRATE 50 MG TAB PO SCH (18:33)
[2019-03-07] MEDS ORDERED: VANCOMYCIN HCL 1,000 MG in SODIUM CHLORIDE 0.9% 250 ML IV SCH (02:00)
--- NOTE | 2019-03-07 03:29 | Infectious Disease Consult ---
Date of Consultation March 06, 2019 Assessment & Plan (1) Sepsis: What appears to be acute influenza A infection complicated by sepsis and possible developing pneumonia though low pro-calcitonin speaks against bacterial superinfection. Pending further culture results, patient continue on Tamiflu, vancomycin, and Zosyn. Will follow. (2) Influenza A: History of Present Illness Reason for Consultation: Sepsis, pneumonia, influenza A Attending Physician: Eladio Burdick DO History of Present Illness History obtained from medical records and medical staff is patient unable to provide adequate history. 88-year-old female with history of COPD, chronic diastolic congestive heart failure, GERD, hyperlipidemia, resident of a custodial facility, who was admitted on March 02 with several day history of progressively worsening cough, shortness of breath, fever and weakness. Was found to have evidence of sepsis, and chest x-ray revealed bilateral infiltrates. Influenza PCR positive for influenza A. Patient has been treated with Tamiflu, vancomycin, and cefepime. Pro-calcitonin is low, white count elevated. Cultures have been negative to date. Allergies Allergy/AdvReac Type Severity Reaction Status Date / Time cat dander Allergy Intermediate ITCHY, RED Verified 03/02/19 12:21 RASH, CONGESTION dog dander Allergy Intermediate ITCHY, RED Verified 03/02/19 12:21 RASH, CONGESTION horse dander Allergy Intermediate ITCHY, RED Verified 03/02/19 12:21 RASH, CONGESTION rabbit dander Allergy Intermediate ITCHY, RED Verified 03/02/19 12:21 RASH, CONGESTION Home Medications Home Medications Medication Instructions Recorded Confirmed Type cholecalciferol (vitamin D3) 2,000 unit PO QAM #0 tab 07/13/15 03/02/19 History [Vitamin D3] melatonin 1 mg PO HS 30 Days #30 tab 07/13/15 03/02/19 History alendronate 70 mg PO WK 10/03/18 03/02/19 History guaifenesin [Mucinex] 600 mg PO Q12H PRN #30 tab 10/19/18 03/02/19 Rx Breo Ellipta 1 inh INHALATION QAM 12/09/18 03/02/19 History albuterol sulfate [ProAir HFA] 2 puff INHALATION Q4 PRN 12/09/18 03/02/19 History multivitamin 1 tab PO QAM 12/09/18 03/02/19 History acetaminophen [Tylenol] 650 mg PO Q4H PRN 02/26/19 03/02/19 History ipratropium-albuterol 3 ml INHALATION Q4H PRN 02/26/19 03/02/19 History pantoprazole 40 mg PO QAM 02/26/19 03/02/19 History Patient History Medical History Hyponatremia (Chronic) Kyphosis (Chronic) COPD (chronic obstructive pulmonary disease) (Chronic) Hyperlipidemia (Chronic) GERD (gastroesophageal reflux disease) (Chronic) Chronic diastolic CHF (congestive heart failure) (Chronic) History of breast cancer (Resolved) Acute respiratory failure with hypoxia (Acute) Pneumonia (Acute) Atrial ectopy Ventricular ectopy Surgical History H/O: hysterectomy (Resolved) History of cataract surgery (Resolved) History of hip replacement (Resolved) Hx of unilateral modified radical mastectomy (Resolved) Family History Other Heart disease Social History Communication Ability: Effective Beliefs That Will Affect Care: None marital status: / Current Living Situation: Personal Care Facility Current Living Situation Comment: [facility] current occupational status: retired Other Information That Helps Us Care for You: No Feels Safe at Home: Yes Safety Concerns: Feels Safe At This Time Smoking Status: Never smoker Hx Alcohol Use: No Hx Substance Use: No Review of Systems Not obtainable because of patient's mental status Physical Exam Vital Signs (Past 24 Hours): Last Vital Signs Temp 36.4 C L 03/06/19 23:00 Pulse 98 H 03/07/19 02:09 Resp 18 03/06/19 23:00 BP 142/70 H 03/06/19 23:00 Pulse Ox 97 03/06/19 23:00 Constitutional: well nourished; no acute distress Eyes: PERRL, conjunctivae normal, anicteric sclerae ENMT: external ear and nose normal, oropharynx normal Neck: trachea midline, no thyromegaly neck nontender Respiratory: no respiratory distress and does not use accessory muscles Auscultation: + rales and + rhonchi Cardiovascular: RRR, no murmur, no edema Gastrointestinal (Abdomen): normal bowel sounds, soft, nontender, no hepatosplenomegaly Percussion/Palpation: no abdominal mass Musculoskeletal: no cyanosis or clubbing, extremities motor strength 5/5 Skin: no rashes, warm and dry normal turgor Neurologic: moves all extremities and awake (But lethargic) Lymphatic: no cervical or axillary lymphadenopathy no inguinal lymphadenopathy Results & Data Laboratory Results Short CBC 03/06/19 Range/Units 05:51 WBC 18.63 H (4.8-10.8) K/uL Hgb 13.6 (12.0-16.0) g/dL Hct 41.7 (37-47) % Plt Count 523 H (130-400) K/uL BMP 03/06/19 05:51 Sodium 141 Potassium 4.3 Chloride 102 Carbon Dioxide 35 H BUN 40 H Creatinine 0.53 L Glucose 124 H Calcium 10.0 Cardiac Enzymes 03/06/19 03/06/19 03/06/19 Range/Units 08:09 13:53 19:49 Troponin I 0.093 H* 0.071 H* 0.067 H* (0-0.045) ng/ml Diagnostic Findings Microbiology 03/02/19 12:15 Blood Blood Culture - Preliminary No growth to date. 03/02/19 12:00 Blood Blood Culture - Preliminary No growth to date. XR chest 1V portable CLINICAL HISTORY: 88 years-old Female presenting with Cough, Desat. TECHNIQUE: Portable upright AP view of the chest was obtained. COMPARISON: 03/04/2019. FINDINGS: The patient is LATVIAN rotated. Atherosclerosis of the aortic arch. Cardiac silhouette normal in size. Extensive heterogeneity of lung parenchyma with prominent reticular opacities, left greater than right. These may be slightly worsened from prior exam. Persistent right pleural effusion suspected. No large pneumothorax. Osteopenia. Scoliosis and degenerative changes of the spine. Old left anterolateral rib fractures suspected. Upper abdomen normal. IMPRESSION: 1. Apparent slight interval worsening of diffuse reticular opacities, left greater than right. This may indicate congestive change or a developing infiltrate. Attention on follow-up. 2. Right pleural effusion versus elevation right hemidiaphragm unchanged. Electronically signed by: Guzman Aponte M.D. 03/06/2019 8:58 AM Dictated: 03/06/19 0856 Transcribed: 03/06/19 0856
[2019-03-07] MEDS: CEFEPIME 1,000 MG in SYRINGE 0 ML IV SCH ×2 (05:49→18:36)
[2019-03-07 06:56] LABS: Albumin Level 2.5 gm/dl (3.4-5.0); BUN Creatinine Ratio 72.6 (10-20); Calcium 9.6 mg/dl (8.5-10.1); Est GFR (African American) 98.2; Est GFR (Non-African American) 84.7; Potassium 3.9 mmol/L (3.5-5.1)
[2019-03-07 06:59] LABS: Albumin Globulin Ratio 0.7 (0.9-2); Bilirubin,Total 0.4 mg/dl (0.2-1); Globulin 3.8 gm/dl (2.5-4.0); Total Protein 6.3 gm/dl (6.4-8.2)
[2019-03-07] MEDS: DOCUSATE SODIUM 100 MG CAP PO SCH ×2 (07:36→19:12)
[2019-03-07] MEDS: HEPARIN SOD 5,000 UNIT/0.5 ML VIAL SQ SCH ×2 (07:36→20:35)
[2019-03-07] MEDS: METOPROLOL TARTRATE 50 MG TAB PO SCH ×2 (07:49→19:12)
[2019-03-07] MEDS: SENNA 8.6 MG TAB PO SCH (07:49)
[2019-03-07] MEDS: PANTOprazole 40 MG TAB PO SCH (07:49)
[2019-03-07] MEDS: OSELTAMIVIR PHOSPHATE SUSP 30 MG/5 ML UDP PO SCH (07:49)
--- NOTE | 2019-03-07 10:29 | Hospitalist Progress Note ---
Date of Service March 07, 2019 Assessment & Plan (1) Acute respiratory failure with hypoxia: This is an 88-year-old female resident of [facility] with a PMH of COPD, diastolic HF, chronic hyponatremia and GERD who presents with shortness of breath x 4 days and was found to have acute respiratory failure with hypoxia in the setting of possible hospital-acquired pneumonia, influenza A and COPD exacerbation. -Admitted to ICU on 03/02, Off BiPAP 03/03, Floor 03/03, declining daily, Now DNR (2) Sepsis: Treating for HCAP, Vanco, ICU team following, DNR, d/w sons Chip and Pietro +hospital [facility]ium also present (3) PNA (pneumonia): Met sepsis criteria with leukocytosis of 20.6K, tachypnea at 38 and tachycardic with HR of 120 -CXR with interval development of patchy infiltrates on left upper and midlung -Panculture, Lactate, Procalcitonin all neg -Continue empiric coverage with cefepime and Vanco (4) Influenza A: Stop Tamiflu, supportive measures -Droplet precautions (5) COPD (chronic obstructive pulmonary disease): Continue albuterol, ipratropium inh, solu-medrol (6) Elevated troponin: Troponin elevation of 0.347, likely demand ischemia -No chest pain or acute EKG changes (7) Hyponatremia: Chronic, history of SIADH -Has been on fluid restriction of 1.5 L in the past (8) Chronic diastolic CHF (congestive heart failure): On Lsix 20 mg IV Q12 -Continue monitoring volume status closely (9) GERD (gastroesophageal reflux disease): Continue PPI DVT Ppx: SQ heparin Code status: DNR PCP: Monika Dispo: Admitted to ICU. Floor 03/03 Subjective Saw her on the floor today, sons at bedside, she is relatively unresponsive, Declining ROS-Offers no ROS, weak and confused Physical Exam Gen-Somnolent, NAD, On NC Head-NCAT, EOMI, PERRLA, Anicteric Sclera, No Posterior Pharyngeal Erythema Neck-Supple, No JVD, No Thyromegaly, No Masses, No LAD, No Bruits Lungs- Scattered Rhonchi, No Wheezing, No Crepitus Chest-No S4, +S1, +S2, No S3, No Murmurs, No Rubs, No Gallops, No Ectopy Abdomen-Soft, Bowel Sounds Present, Non Tender, Non Distended, No Hepatomegaly, No Splenomegaly, No Palpable Masses, No Rebound, No Rigidity, No Guarding Musculoskeletal-Full Range of Motion Bilaterally, No CVAT Extremities-No Cyanosis, No Clubbing, No Edema Nuero-Cranial Nerves II-XII grossly intact, Motor WNL, DTRs WNL, Strength WNL, Non Focal Psych-Somnolent Physical Exam Vital Signs (Past 24 Hours): Last Vital Signs Temp 36.6 C 03/07/19 08:27 Pulse 76 03/07/19 08:27 Resp 20 03/07/19 08:27 BP 164/63 H 03/07/19 08:27 Pulse Ox 96 03/07/19 08:27 Results & Data Laboratory Results Current Diagnoses Sepsis, unspecified organism (03/02/19) Hypo-osmolality and hyponatremia (03/02/19) Chronic diastolic (congestive) heart failure (03/02/19) Influenza due to other identified influenza virus with other respiratory manifestations (03/02/19) Lobar pneumonia, unspecified organism (03/02/19) Pneumonia, unspecified organism (03/02/19) Chronic obstructive pulmonary disease, unspecified (03/02/19) Acute respiratory failure, unspecified whether with hypoxia or hypercapnia (03/02/19) Acute respiratory failure with hypoxia (03/02/19) Gastro-esophageal reflux disease without esophagitis (03/02/19) Abnormal levels of other serum enzymes (03/02/19) Allergies cat dander Allergy (Intermediate, Verified 03/02/19 12:21) ITCHY, RED RASH, CONGESTION dog dander Allergy (Intermediate, Verified 03/02/19 12:21) ITCHY, RED RASH, CONGESTION horse dander Allergy (Intermediate, Verified 03/02/19 12:21) ITCHY, RED RASH, CONGESTION rabbit dander Allergy (Intermediate, Verified 03/02/19 12:21) ITCHY, RED RASH, CONGESTION Height/Weight/Isolation Height 4 ft 11 in Weight 43.9 kg Isolation Type Droplet Precautions Chemistry 03/06/19 03/07/19 05:51 06:15 Sodium 141 142 Potassium 4.3 3.9 Chloride 102 100 Carbon Dioxide 35 H 40 H Anion Gap 4.0 2.0 L BUN 40 H 38 H Creatinine 0.53 L 0.52 L Glucose 124 H 110 H Microbiology 03/06/19 08:16 Blood Blood Culture - Pending 03/06/19 08:09 Blood Blood Culture - Pending (1) PNA (pneumonia) Laterality: left Lung location: upper lobe of lung Pneumonia type: due to unspecified organism Qualified Code(s): J18.1 - Lobar pneumonia, unspecified organism (2) GERD (gastroesophageal reflux disease) Esophagitis presence: esophagitis presence not specified Qualified Code(s): K21.9 - Gastro-esophageal reflux disease without esophagitis
[2019-03-07] MEDS: methylPREDNISolone 40 MG in SYRINGE 0 ML IV SCH (11:33)
[2019-03-07] MEDS: FUROSEMIDE 20 MG in SYRINGE 0 ML IV SCH ×2 (11:33→21:43)
--- NOTE | 2019-03-07 12:53 | Palliative Care Consultation ---
Date of Consultation March 07, 2019 Assessment & Plan (1) Palliative care encounter: This is an 88-year-old female patient who typically resides at [facility] care - who presented to the ED with an increase of SOB x 4 days and acute on chronic respiratory failure, HAP, Influenza A. She was subsequently admitted to the ICU for BiPAP. She has continued to show signs of decline and is now somnolent. Additional PMH includes CHF and hyponatremia. Palliative Care was consulted to discuss goals of care. -Met with patient and one of patient's sons, Vinicio, at the bedside. Two sons are in from out of town. Vinicio lives in [place] and Pietor lives in [place]. Both are in town this week and spending alternating nights with the patient. -Patient has not been responding to them over the past few days and unable to take oral medications. -The Hospitalist team met with Vinicio this morning and did transition patient to DNR status, but son's would like to allow 24-48 hours of continued antibiotics -Based on my physical assessment, it appears that the patient is entering the active dying process with increased shallow breathing and somnolence. -The patient does appear to be uncomfortable with signs of furrowed brow and consistent moaning with most exhaled breaths. -I discussed stopping all non-essential oral medications as the patient is unable to safely swallow and Vinicio wants to 'hold out hope' that she will wake up enough to swallow them. For now, nursing to continue non-admister of medications. -I discussed some pain medication options for patient to trial (Tylenol, IV Morphine, and Roxanol). Vinicio has concerns about Morphine masking the patient's mental status and thinks it will 'paralyze' her. I did explain the pharmacokinetics of Morphine to son. For now, son is receptive to IV Tylenol to see if the patient is more comfortable. I did order Ofirmev 1G IV TID for pain. We will continue discussing pain medication options. -I did set the expectation that patient appears to be in the last days to weeks of her life and provided an 'Out of my Sight' book for both sons. -We talked about other family members or friends that would want to potentially see patient or talk to her before transitioning to comfort measures and he did mention a sister of his that has been estranged for the last 10 years that he would try to get a hold of. -Continue discussion based on clinical progress over next 48 hours with an eventual transition to comfort measures only if no improvement -Based on the patient's decline, I do not anticipate patient will be stable enough for transfer to another facility for end-of-life. We will continue to assess and guide the family through these conversations, all while waiting another day or two to assess progress with antibiotics/steroids. (2) Acute exacerbation of chronic obstructive airways disease: Managed by Hospitalists -Patient was in ICU and receiving BiPAP, now BiPAP off and patient continues active decline -Currently somnolent -Continue nebulizer and steroids IV -Continue discussion based on clinical progress over next 48 hours with an eventual transition to comfort measures only if no improvement (3) Influenza A: Managed by Hospitalists -On Droplet precautions -Receiving Tamiflu 30 mg po BID -Has been unable to take medications due to somnolence (4) PNA (pneumonia): Managed by Hospitalists -Currently receiving Cefepime, Vancomycin IV for treatment -Continue steroids IV for treatment per earlier discussion with pt son. -Continue discussion based on clinical progress over next 48 hours with an eventual transition to comfort measures only if no improvement Laterality: left Lung location: upper lobe of lung Pneumonia type: due to unspecified organism Qualified Code(s): J18.1 - Lobar pneumonia, unspecified organism Supervising Physician Co-Signing Physician Notes Chart reviewed, patient seen and examined-son Vinicio, at bedside Patient did not open her eyes on exam, however she did seem to calm in response to voice and music PE: Patient vocalizing on exam, did call to son's voice and with music HEENT: Positive spontaneous eye movements, did not open eyes and responds to voice, very [place] Lungs: Respirations unlabored, on O2 at 3 L, no rhonchi CV: Tachycardic Abdomen: No grimace with light palpation Extremities: Warm to touch, no edema Agree with above note, assessment and plan as per Silvestre Martinez MORTGAGE SERVICING SPECIALIST-we will continue to follow and assist family with medical decision making. Patient likely transitioning to end-of-life. History of Present Illness Reason for Consultation: goals of care Requesting Physician: Dr. Burdick Attending Physician: Eladio Burdick DO History of Present Illness This is an 88-year-old female patient who typically resides at [facility] - personal care - who presented to the ED with an increase of SOB x 4 days and acute on chronic respiratory failure, HAP, Influenza A. She was subsequently admitted to the ICU for BiPAP. She has continued to show signs of decline and is now somnolent. Additional PMH includes CHF and hyponatremia. Palliative Care was consulted to discuss goals of care. Please see Assessment and Plan portion of note for further details. Thank you for involving the Palliative Care team with this patient and family. We will follow closely. Allergies Allergy/AdvReac Type Severity Reaction Status Date / Time cat dander Allergy Intermediate ITCHY, RED Verified 03/02/19 12:21 RASH, CONGESTION dog dander Allergy Intermediate ITCHY, RED Verified 03/02/19 12:21 RASH, CONGESTION horse dander Allergy Intermediate ITCHY, RED Verified 03/02/19 12:21 RASH, CONGESTION rabbit dander Allergy Intermediate ITCHY, RED Verified 03/02/19 12:21 RASH, CONGESTION Home Medications Home Medications Medication Instructions Recorded Confirmed Type cholecalciferol (vitamin D3) 2,000 unit PO QAM #0 tab 07/13/15 03/02/19 History [Vitamin D3] melatonin 1 mg PO HS 30 Days #30 tab 07/13/15 03/02/19 History alendronate 70 mg PO WK 10/03/18 03/02/19 History guaifenesin [Mucinex] 600 mg PO Q12H PRN #30 tab 10/19/18 03/02/19 Rx Breo Ellipta 1 inh INHALATION QAM 12/09/18 03/02/19 History albuterol sulfate [ProAir HFA] 2 puff INHALATION Q4 PRN 12/09/18 03/02/19 History multivitamin 1 tab PO QAM 12/09/18 03/02/19 History acetaminophen [Tylenol] 650 mg PO Q4H PRN 02/26/19 03/02/19 History ipratropium-albuterol 3 ml INHALATION Q4H PRN 02/26/19 03/02/19 History pantoprazole 40 mg PO QAM 02/26/19 03/02/19 History Patient History Medical History Hyponatremia (Chronic) Kyphosis (Chronic) COPD (chronic obstructive pulmonary disease) (Chronic) Hyperlipidemia (Chronic) GERD (gastroesophageal reflux disease) (Chronic) Chronic diastolic CHF (congestive heart failure) (Chronic) History of breast cancer (Resolved) Acute respiratory failure with hypoxia (Acute) Pneumonia (Acute) Atrial ectopy Ventricular ectopy Surgical History H/O: hysterectomy (Resolved) History of cataract surgery (Resolved) History of hip replacement (Resolved) Hx of unilateral modified radical mastectomy (Resolved) Family History Other Heart disease Social History Communication Ability: Effective Beliefs That Will Affect Care: None marital status: / Current Living Situation: Personal Care Facility Current Living Situation Comment: [facility] current occupational status: retired Other Information That Helps Us Care for You: No Feels Safe at Home: Yes Safety Concerns: Feels Safe At This Time Smoking Status: Never smoker Hx Alcohol Use: No Hx Substance Use: No Review of Systems Unable to obtain as patient somnolent and non-participatory with exam or discussion. Physical Exam Vital Signs (Past 24 Hours): Last Vital Signs Temp 36.7 C 03/07/19 11:29 Pulse 113 H 03/07/19 11:29 Resp 20 03/07/19 11:29 BP 171/68 H 03/07/19 11:29 Pulse Ox 98 03/07/19 11:29 Physical Exam: Pt lying in bed with eyes closed, furrowed brow and intermittent moaning Constitutional: + ill appearing, + thin, + frail appearing and + in distress Eyes: PERRL, conjunctivae normal, anicteric sclerae ENMT: external ear and nose normal, oropharynx normal Neck: trachea midline, no thyromegaly Respiratory: + abnormal respiratory pattern (shallow breathing) Auscultation: + diminished lung sounds and + rhonchi Cardiovascular: Heart Sounds: normal S1 and normal S2; + abnormal physiologic split S2, no murmur and no cardiac rub Vessels: normal peripheral pulses and dorsalis pedis pulses present Extremities: no pedal edema and no edema Gastrointestinal (Abdomen): normal bowel sounds, soft, nontender, no hepatosplenomegaly Skin: no rashes, warm and dry normal turgor Psychiatric: Orientation: + not alert and + not oriented x 3 Time Spent Midlevel Total time spent 70 minutes with > 50% of that time spent reviewing the chart, assessing the patient, discussing goals of care, end of life symptoms and symptom management with the pt son and IDT
[2019-03-07] MEDS: ACETAMINOPHEN 1000 MG/100 ML IV IV SCH ×2 (14:23→21:43)
--- NOTE | 2019-03-07 15:12 | Infectious Disease Progress Nt ---
Date of Service March 07, 2019 Assessment & Plan (1) Sepsis: What appears to be acute influenza A infection complicated by sepsis and possible developing pneumonia though low pro-calcitonin speaks against bacterial superinfection. Patient to be continued on current IV antibiotics pending furth er discussions regarding withdrawal of care. Will follow. (2) Influenza A: Subjective Patient seen in follow-up for influenza and pneumonia. Appears to be slowly declining, palliative care consultation in progress. Blood cultures remain negative. Review of Systems Unobtainable due to cognitive status Physical Exam Vital Signs (Past 24 Hours): Last Vital Signs Temp 36.7 C 03/07/19 11:29 Pulse 113 H 03/07/19 11:29 Resp 20 03/07/19 11:29 BP 171/68 H 03/07/19 11:29 Pulse Ox 98 03/07/19 11:29 Constitutional: well nourished; no acute distress Eyes: PERRL, conjunctivae normal, anicteric sclerae ENMT: external ear and nose normal, oropharynx normal Neck: trachea midline, no thyromegaly neck nontender Respiratory: no respiratory distress and does not use accessory muscles Auscultation: + rales and + rhonchi Cardiovascular: RRR, no murmur, no edema Gastrointestinal (Abdomen): normal bowel sounds, soft, nontender, no hepatosplenomegaly Percussion/Palpation: no abdominal mass Musculoskeletal: no cyanosis or clubbing, extremities motor strength 5/5 Skin: no rashes, warm and dry normal turgor Neurologic: moves all extremities and awake (But lethargic) Lymphatic: no cervical or axillary lymphadenopathy no inguinal lymphadenopathy Results & Data Laboratory Results [facility] 03/07/19 06:15 Sodium 142 Potassium 3.9 Chloride 100 Carbon Dioxide 40 H BUN 38 H Creatinine 0.52 L Glucose 110 H Calcium 9.6 Cardiac Enzymes 03/06/19 Range/Units 19:49 Troponin I 0.067 H* (0-0.045) ng/ml Liver Function 03/07/19 Range/Units 06:15 Total Bilirubin 0.4 (0.2-1) mg/dl AST 9 L (15-37) U/L ALT 13 (12-78) U/L Alkaline Phosphatase 47 (45-117) U/L Albumin 2.5 L (3.4-5.0) gm/dl Diagnostic Findings Microbiology 03/02/19 12:15 Blood Blood Culture - Preliminary No growth to date. 03/02/19 12:00 Blood Blood Culture - Preliminary No growth to date. cc: ~ XR chest 1V portable CLINICAL HISTORY: 88 years-old Female presenting with Cough, Desat. TECHNIQUE: Portable upright AP view of the chest was obtained. COMPARISON: 03/04/2019. FINDINGS: The patient is SAMI rotated. Atherosclerosis of the aortic arch. Cardiac silhouette normal in size. Extensive heterogeneity of lung parenchyma with prominent reticular opacities, left greater than right. These may be slightly worsened from prior exam. Persistent right pleural effusion suspected. No large pneumothorax. Osteopenia. Scoliosis and degenerative changes of the spine. Old left anterolateral rib fractures suspected. Upper abdomen normal. IMPRESSION: 1. Apparent slight interval worsening of diffuse reticular opacities, left greater than right. This may indicate congestive change or a developing infiltrate. Attention on follow-up. 2. Right pleural effusion versus elevation right hemidiaphragm unchanged.
[2019-03-07] MEDS ORDERED: VANCOMYCIN TROUGH ONE (19:30)
[2019-03-07] MEDS: VANCOMYCIN HCL 750 MG in SODIUM CHLORIDE 0.9% 250 ML IV SCH (21:43)
[2019-03-08] MEDS: CEFEPIME 1,000 MG in SYRINGE 0 ML IV SCH ×2 (05:41→18:24)
[2019-03-08] MEDS: ACETAMINOPHEN 1000 MG/100 ML IV IV SCH ×3 (05:41→22:02)
[2019-03-08 07:31] LABS: Hematocrit (blood only) 42.7 % (37-47); Hemoglobin 13.5 g/dL (12.0-16.0); Mean Corpuscular Hgb Conc 31.6 g/dL (32-36); Mean Corpuscular Volume 89.3 fL (80-100); Mean Platelet Volume 9.2 fL (7.4-10.4); Platelet Count 484 K/uL (130-400); RDW Coefficient of Variation 13.7 % (11.5-14.5); RDW Standard Deviation 45.1 fL (36.4-46.3); Red Blood Count 4.78 M/uL (4.2-5.4); White Blood Count 17.42 K/uL (4.8-10.8)
[2019-03-08 07:54] LABS: Calcium 9.2 mg/dl (8.5-10.1); Creatinine Clr Calc Pharmacy 48.2 ml/min; Est GFR (Non-African American) 83.7; Potassium 2.9 mmol/L (3.5-5.1)
[2019-03-08 08:00] LABS: Basophils # (auto) 0.02 K/uL (0-0.2); Basophils % (auto) 0.1 %; Immature Granulocytes # (auto) 0.46 K/uL (0.00-0.02); Immature Granulocytes % (auto) 2.6 %; Lymphocytes % (auto) 12.1 %; Neutrophils # (auto) 14.14 K/uL (1.4-6.5); Neutrophils % (auto) 81.2 %
[2019-03-08] MEDS: HEPARIN SOD 5,000 UNIT/0.5 ML VIAL SQ SCH ×2 (09:07→21:54)
[2019-03-08] MEDS: methylPREDNISolone 40 MG in SYRINGE 0 ML IV SCH (09:07)
[2019-03-08] MEDS: FUROSEMIDE 20 MG in SYRINGE 0 ML IV SCH ×2 (09:07→21:51)
--- NOTE | 2019-03-08 09:13 | Pharmacy Report ---
Pharmacy Abx Dose Short Note - Date of Service March 08, 2019 - Assessment & Plan Assessment 88 year old F receiving vancomycin and cefepime for treatment of HAP, complicated by influenza infection Day # 5 of vancomycin therapy, day #7 of cefepime therapy. Completed course of Tamiflu. ID is consulted. Palliative care also involved and plans are to potentially transition to comfort care only if no improvement in next few days. Procal negative, which would rule out bacterial infection, but antibiotics have been continued in light of patient's worsening status Plan Vancomycin * Trough level of 19.1 mcg/mL is therapeutic; however, this was after only 2 doses and 1 gm dose was entered in error instead of 750 mg maintenance dose. Due to a therapeutic level after only 2 doses, dose was decreased last evening. * Continue dose of 750 mg (16 mg/kg) IV every 18 hours * Goal trough level for pneumonia : 15 to 20 mcg/mL * Trough level ordered for: 03/09/19 prior to the 9 am dose Cefepime * Not being dosed per pharmacy but this dose was requested from provider due to patient's height/weight. Dose is reasonable due to this and CrCl. Pharmacy will continue to follow and will adjust dose/frequency as necessary. Thank you.
[2019-03-08] MEDS: DOCUSATE SODIUM 100 MG CAP PO SCH ×2 (09:18→21:55)
[2019-03-08] MEDS: METOPROLOL TARTRATE 50 MG TAB PO SCH ×2 (09:18→21:52)
[2019-03-08] MEDS: PANTOprazole 40 MG TAB PO SCH (09:18)
[2019-03-08] MEDS: SENNA 8.6 MG TAB PO SCH (09:19)
[2019-03-08] MEDS: POTASSIUM CHLORIDE / WTR 10 MEQ/100 ML PLCT IV SCH ×3 (10:24→14:39)
--- NOTE | 2019-03-08 10:40 | Palliative Care Progress Note ---
Date of Service March 08, 2019 Assessment & Plan (1) Palliative care encounter: -88 year old female from [facility] with PMH chronic diastolic heart failure, COPD and others. Here with acute on chronic respiratory failure 2/2 HAP and Influenza A. Has continued to decline during hospitalization. -Palliative care met with patient's son Vinicio at length 03/07 and again today 03/08. -[facility] had asked about why patient is not receiving maintenance IVF. Stated that patient is receiving some IVF through multiple abx and potassium replacement today. She is still on small amount of IV Lasix daily. [facility] verbalized understanding. I encouraged him to give patient sips of fluids if she was awake enough and if she is not strong enough for sips, he can use sponge. He has been giving her moist sponges. -Plan is to continue current treatment for pneumonia and see if there is any significant improvement in next 24-48 hours. Continued discussion about goals of care and plan of care. -Uncertain of discharge plan at this time. -Continue acetaminophen 1000mg IV TID for now as patient is much more comfortable than yesterday. No longer continuously moaning. -Will conitnue to follow. (2) Acute exacerbation of chronic obstructive airways disease: (3) Influenza A: (4) PNA (pneumonia): Managed by Hospitalists -Currently receiving Cefepime, Vancomycin IV for treatment -Continue steroids IV for treatment per earlier discussion with pt son. -Continue discussion based on clinical progress over next 48 hours with an eventual transition to comfort measures only if no improvement Subjective Patient is more calm today. She did open eyes during my visit, but did not answer questions or follow commands. Son, Vinicio, at bedside. Review of Systems Unobtainable due to cognitive status Physical Exam Vital Signs (Past 24 Hours): Last Vital Signs Temp 36.7 C 03/08/19 08:27 Pulse 143 H 03/08/19 08:46 Resp 20 03/08/19 08:27 BP 139/87 03/08/19 08:46 Pulse Ox 96 03/08/19 08:27 Constitutional: + ill appearing, + thin and + frail appearing ENMT: external ear and nose normal, oropharynx normal Neck: trachea midline, no thyromegaly Respiratory: + abnormal respiratory pattern (shallow breathing) Auscultation: + diminished lung sounds and + rhonchi Cardiovascular: Heart Sounds: normal S1 and normal S2; no murmur Extremities: no edema Gastrointestinal (Abdomen): normal bowel sounds, soft, nontender, no hepatosplenomegaly Psychiatric: Orientation: + not alert and + not oriented x 3 Supervising Physician Co-Signing Physician Notes Patient seen and examined, both sons at bedside as well as [id number]. Son's report patient more interactive-was able to take sips from the tooth that, also able to eat some applesauce. Patient Did attempt to open her eyes during visit PE: Patient more calm, vocalizing less HEENT: Dry mucous membranes, appears to hear, response to voice Lungs: Diminished breath sounds at bases, clear anteriorly, respirations unlabored, on 2 L O2 via nasal cannula CV: Regular rate, no edema Abdomen: Not distended, diminished bowel sounds Skin: Warm to touch, no mottling Agree with above note, assessment and plan as per MIRZA West-we will continue with current course of treatment and allow patient time to possibly respond. Patient appears more comfortable today than on prior exam yesterday. Patient's sons remain hopeful that patient will improve. Will continue to follow and assist family with medical decision making Time Spent Midlevel 35 minutes with >50% of time spent at bedside with patient and son discussing plan and GOC. Attending Spent 20 minutes in addition to the 35 minutes spent by MIRZA West for a total of 55 minutes with greater than 50% of the time spent at bedside discussing treatment options as well as current treatment plan (1) PNA (pneumonia) Laterality: left Lung location: upper lobe of lung Pneumonia type: due to unspecified organism Qualified Code(s): J18.1 - Lobar pneumonia, unspecified organism
[2019-03-08] MEDS: VANCOMYCIN HCL 750 MG in SODIUM CHLORIDE 0.9% 250 ML IV SCH (14:39)
--- NOTE | 2019-03-08 19:05 | Hospitalist Progress Note ---
Date of Service March 08, 2019 Assessment & Plan (1) Acute respiratory failure with hypoxia: (2) Sepsis: (3) PNA (pneumonia): Met sepsis criteria with leukocytosis of 20.6K, tachypnea at 38 and tachycardic with HR of 120 on admission CXR with interval development of patchy infiltrates on left upper and midlung Influenza type A pcr positive Received Tamiflu from 03/04 and discontinued on 03/07 Panculture, Lactate, Procalcitonin all neg ID on board recommended to continue current abx with cefepime and Vanco Continue solumedrol daily Palliative care on board (4) Influenza A: Stop Tamiflu, supportive measures Droplet precautions (5) COPD (chronic obstructive pulmonary disease): Continue albuterol, ipratropium inh, solu-medrol (6) Elevated troponin: Troponin elevation of 0.347, likely demand ischemia No chest pain or acute EKG changes (7) Hyponatremia: Chronic, history of SIADH Has been on fluid restriction of 1.5 L in the past (8) Chronic diastolic CHF (congestive heart failure): On Lsix 20 mg IV Q12 Continue monitoring volume status closely Will transition to oral once able to take tab (9) GERD (gastroesophageal reflux disease): Continue PPI Hypokalemia K 2.9 K replaced Monitor BMP DVT Ppx: SQ heparin Code status: DNR PCP: Monika Dispo: Will discharge once medically stable Subjective Pt was seen and examined Lying in bed with family at bedside Son said that pt slightly improves today Nurse said that pt ate today She was able to follow direction and spoke a little with me Denies any chest pain and said that her breathing is ok Physical Exam Vital Signs (Past 24 Hours): Last Vital Signs Temp 36.7 C 03/08/19 15:51 Pulse 79 03/08/19 15:51 Resp 18 03/08/19 15:51 BP 155/101 H 03/08/19 15:51 Pulse Ox 99 03/08/19 15:51 Physical Exam: General- mild distress Head- atraumatic Eyes- PERRL, EOMI, ENT- oropharynx clear Neck- supple, no JVD Lungs- coarse BS Heart- regular rhythm Abdomen- normal bowel sounds, soft, nontender Extremities- no calf tenderness Neuro- alert, PERRL, soft spoken Skin- warm & dry (1) GERD (gastroesophageal reflux disease) Esophagitis presence: esophagitis presence not specified Qualified Code(s): K21.9 - Gastro-esophageal reflux disease without esophagitis (2) PNA (pneumonia) Laterality: left Lung location: upper lobe of lung Pneumonia type: due to unspecified organism Qualified Code(s): J18.1 - Lobar pneumonia, unspecified organism
--- NOTE | 2019-03-08 21:09 | Infectious Disease Progress Nt ---
Date of Service March 08, 2019 Assessment & Plan (1) Sepsis: What appears to be acute influenza A infection complicated by sepsis and possible developing pneumonia though low pro-calcitonin speaks against bacterial superinfection. Patient to be continued on current IV antibiotics pending furth er discussions regarding withdrawal of care. Will follow. (2) Influenza A: Subjective Patient seen in follow-up for influenza and pneumonia. Appears to be slowly declining, palliative care consultation in progress. Blood cultures remain negative. Review of Systems Unobtainable due to reduced consciousness Physical Exam Vital Signs (Past 24 Hours): Last Vital Signs Temp 36.7 C 03/08/19 15:51 Pulse 79 03/08/19 15:51 Resp 18 03/08/19 15:51 BP 155/101 H 03/08/19 15:51 Pulse Ox 99 03/08/19 15:51 Constitutional: well nourished; no acute distress Eyes: PERRL, conjunctivae normal, anicteric sclerae ENMT: external ear and nose normal, oropharynx normal Neck: trachea midline, no thyromegaly neck nontender Respiratory: no respiratory distress and does not use accessory muscles Auscultation: + rales and + rhonchi Cardiovascular: RRR, no murmur, no edema Gastrointestinal (Abdomen): normal bowel sounds, soft, nontender, no hepatosplenomegaly Percussion/Palpation: no abdominal mass Musculoskeletal: no cyanosis or clubbing, extremities motor strength 5/5 Skin: no rashes, warm and dry normal turgor Neurologic: moves all extremities and awake (But lethargic) Lymphatic: no cervical or axillary lymphadenopathy no inguinal lymphadenopathy Results & Data Laboratory Results Short CBC 03/08/19 Range/Units 07:07 WBC 17.42 H (4.8-10.8) K/uL Hgb 13.5 (12.0-16.0) g/dL Hct 42.7 (37-47) % Plt Count 484 H (130-400) K/uL BMP 03/08/19 07:07 Sodium 143 Potassium 2.9 L D Chloride 98 Carbon Dioxide 39 H BUN 39 H Creatinine 0.54 L Glucose 145 H Calcium 9.2 Diagnostic Findings Microbiology 03/06/19 08:16 Blood Blood Culture - Preliminary No growth to date. 03/06/19 08:09 Blood Blood Culture - Preliminary No growth to date. 03/02/19 12:15 Blood Blood Culture - Final No growth 03/02/19 12:00 Blood Blood Culture - Final No growth
[2019-03-08] MEDS: POTASSIUM CHLORIDE PWD 20 MEQ PACK PO SCH (21:54)
[2019-03-09] MEDS ORDERED: MoRPHine SULFATE 2 MG/ML CARP IV STA (05:10)
[2019-03-09] MEDS: CEFEPIME 1,000 MG in SYRINGE 0 ML IV SCH ×2 (05:30→18:23)
[2019-03-09] MEDS: ACETAMINOPHEN 1000 MG/100 ML IV IV SCH ×3 (05:30→21:07)
[2019-03-09] MEDS ORDERED: VANCOMYCIN TROUGH ONE ×2 (08:30→09:30)
[2019-03-09 09:03] LABS: BUN Creatinine Ratio 84.7 (10-20); Calcium 9.3 mg/dl (8.5-10.1); Creatinine Clr Calc Pharmacy 47.3 ml/min; Est GFR (African American) 96.4; Est GFR (Non-African American) 83.2; Potassium 3.8 mmol/L (3.5-5.1)
[2019-03-09] MEDS: VANCOMYCIN HCL 750 MG in SODIUM CHLORIDE 0.9% 250 ML IV SCH (09:20)
[2019-03-09] MEDS: methylPREDNISolone 40 MG in SYRINGE 0 ML IV SCH (09:20)
[2019-03-09] MEDS: FUROSEMIDE 20 MG in SYRINGE 0 ML IV SCH ×2 (09:20→21:02)
--- NOTE | 2019-03-09 09:42 | Pharmacy Report ---
Pharmacy Abx Dose Short Note - Date of Service March 09, 2019 - Assessment & Plan Plan Vancomycin * Trough level of 19.0 mcg/mL is therapeutic * Continue dose of 750 mg IV every 18 hours * Goal trough level for PNA : 15 to 20 mcg/mL Pharmacy will continue to follow and will adjust dose/frequency as necessary. Thank you.
[2019-03-09] MEDS: SENNA 8.6 MG TAB PO SCH (10:48)
[2019-03-09] MEDS: DOCUSATE SODIUM 100 MG CAP PO SCH ×2 (10:49→21:02)
[2019-03-09] MEDS: PANTOprazole 40 MG TAB PO SCH (10:49)
[2019-03-09] MEDS: METOPROLOL TARTRATE 50 MG TAB PO SCH ×2 (10:50→21:02)
[2019-03-09] MEDS: HEPARIN SOD 5,000 UNIT/0.5 ML VIAL SQ SCH ×2 (10:50→21:02)
--- NOTE | 2019-03-09 12:10 | Palliative Care Progress Note ---
Date of Service March 09, 2019 Assessment & Plan (1) Palliative care encounter: -88 year old female from [facility] with PMH chronic diastolic heart failure, COPD and others. Here with acute on chronic respiratory failure 2/2 HAP and Influenza A. Has continued to decline during hospitalization. -Patient more alert during my visit today. Sat for quite a while with patient, her son Keeley, and presumably Keeley's . Patient was able to answer questions appropriately. Answers with one word, not able to participate in meaningful goals of care conversation. -Discussed with patient's son: despite minor waxing and waning of mental status and alertness, patient's overall condition is not improving. He agreed. CO2 is 42 today, has been in the 30s for last six days. Keeley asked if a short time on the bipap would help this, I stated that it would possibly improve the Co2 for a short period of time, but is not going to treat the underlying illnesses (pnemonia, COPD, CHF, etc). Keeley verbalized understanding and agreed we will not escalate care. -Keeley does want to continue current treatment plan. He was somewhat bothered by the fact that patient had received a dose of IV morphine this morning, but we talked about the fact that it was given for respiratory distress and nonverbal signs of pain and that with her still-functioning kidneys, her body should be able to metabolize it. Also, she is awake at this time, so I'm not concerned that she received too high of a dose. Keeley agreed that he d oes not want his mother to be in pain or distress, so if symptoms arise, he is okay with nursing calling a provider and obtaining an order if needed. He does not want me to order a PRN dose of morphine at this time. -While in the room, I sat patient up to give her sips of water and she did okay. Did have some mild coughing for about 10 seconds, but no distress. Explained that patient is high aspiration risk, family okay with continuing sips and bites as tolerated. -Outside of patient's room, Keeley asked if she had any mottling. I explained that her knees and feet are cold, but no mottling yet. -Will continue to follow closely. (2) Acute exacerbation of chronic obstructive airways disease: (3) Influenza A: (4) PNA (pneumonia): Managed by Hospitalists -Currently receiving Cefepime, Vancomycin IV for treatment -Continue steroids IV for treatment per earlier discussion with pt son. -Continue discussion based on clinical progress over next 48 hours with an eventual transition to comfort measures only if no improvement Subjective Patient more awake today, but remains extremely weak and oriented to person only. Son Keeley and presumably Keeley's at bedside. See A&P. Review of Systems Unobtainable due to cognitive status Physical Exam Vital Signs (Past 24 Hours): Last Vital Signs Temp 36.7 C 03/09/19 08:00 Pulse 65 03/09/19 08:00 Resp 20 03/09/19 08:00 BP 130/67 03/09/19 08:00 Pulse Ox 98 03/09/19 08:00 Constitutional: + ill appearing, + thin and + frail appearing ENMT: external ear and nose normal, oropharynx normal Neck: trachea midline, no thyromegaly Respiratory: + uses accessory muscles and + abnormal respiratory pattern (shallow breathing) Auscultation: + diminished lung sounds and + rhonchi Cardiovascular: Heart Sounds: normal S1 and normal S2; no murmur Extremities: no edema Gastrointestinal (Abdomen): normal bowel sounds, soft, nontender, no hepatosplenomegaly Neurologic: moves all extremities, awake and + confused Psychiatric: Orientation: oriented to person; + not oriented to place and + not oriented to time Time Spent Midlevel 65 minutes with >50% of time spent at bedside with patient and family discussing condition and GOC. (1) PNA (pneumonia) Laterality: left Lung location: upper lobe of lung Pneumonia type: due to unspecified organism Qualified Code(s): J18.1 - Lobar pneumonia, unspecified organism
[2019-03-09] MEDS: POTASSIUM CHLORIDE PWD 20 MEQ PACK PO SCH (13:08)
--- NOTE | 2019-03-09 20:47 | Hospitalist Progress Note ---
Date of Service March 09, 2019 Assessment & Plan (1) Acute respiratory failure with hypoxia: (2) Sepsis: (3) PNA (pneumonia): Met sepsis criteria with leukocytosis of 20.6K, tachypnea at 38 and tachycardic with HR of 120 on admission CXR with interval development of patchy infiltrates on left upper and midlung Influenza type A pcr positive Received Tamiflu from 03/04 and discontinued on 03/07 Panculture, Lactate, Procalcitonin all neg ID on board recommended to continue current abx with cefepime and Vanco Continue solumedrol daily Palliative care on board (4) Influenza A: Stopped Tamiflu, supportive measures Droplet precautions (5) COPD (chronic obstructive pulmonary disease): Continue albuterol, ipratropium inh, solu-medrol (6) Elevated troponin: Troponin elevation of 0.347, likely demand ischemia No chest pain or acute EKG changes (7) Hyponatremia: Chronic, history of SIADH Has been on fluid restriction of 1.5 L in the past (8) Chronic diastolic CHF (congestive heart failure): On Lasix 20 mg IV Q12 Continue monitoring volume status closely Will transition to oral in am (9) GERD (gastroesophageal reflux disease): Continue PPI Hypokalemia K 3.8 Stable Monitor BMP DVT Ppx: SQ heparin Code status: DNR PCP: Monika Dispo: Will discharge once medically stable Subjective Pt was seen and examined Lying in bed resting with family at bedside Pt said that she feels tired She said that breathing is same like yesterday Denies any chest pain, palpitation and fever Physical Exam Vital Signs (Past 24 Hours): Last Vital Signs Temp 36.3 C L 03/09/19 15:56 Pulse 65 03/09/19 15:56 Resp 18 03/09/19 15:56 BP 142/62 H 03/09/19 15:56 Pulse Ox 94 03/09/19 15:56 Physical Exam: General- mild distress Head- atraumatic Eyes- PERRL, EOMI, ENT- oropharynx clear Neck- supple, no JVD Lungs- coarse BS Heart- regular rhythm Abdomen- normal bowel sounds, soft, nontender Extremities- no calf tenderness Neuro- alert, PERRL, soft spoken Skin- warm & dry (1) GERD (gastroesophageal reflux disease) Esophagitis presence: esophagitis presence not specified Qualified Code(s): K21.9 - Gastro-esophageal reflux disease without esophagitis (2) PNA (pneumonia) Laterality: left Lung location: upper lobe of lung Pneumonia type: due to unspecified organism Qualified Code(s): J18.1 - Lobar pneumonia, unspecified organism
[2019-03-10] MEDS: VANCOMYCIN HCL 750 MG in SODIUM CHLORIDE 0.9% 250 ML IV SCH ×2 (03:24→21:19)
[2019-03-10] MEDS: CEFEPIME 1,000 MG in SYRINGE 0 ML IV SCH ×3 (05:35→19:19)
[2019-03-10] MEDS: ACETAMINOPHEN 1000 MG/100 ML IV IV SCH ×2 (05:35→14:52)
[2019-03-10 08:20] LABS: BUN Creatinine Ratio 90.3 (10-20); Calcium 9.6 mg/dl (8.5-10.1); Est GFR (African American) 98.2; Est GFR (Non-African American) 84.7
[2019-03-10] MEDS: LANSOPRAZOLE 30 MG SOLTAB PO SCH (09:14)
[2019-03-10] MEDS: DOCUSATE SODIUM SYRUP 100 MG/10 ML UDC PO SCH ×2 (09:14→21:16)
[2019-03-10] MEDS: methylPREDNISolone 40 MG in SYRINGE 0 ML IV SCH (09:14)
[2019-03-10] MEDS: FUROSEMIDE 20 MG in SYRINGE 0 ML IV SCH (09:15)
[2019-03-10] MEDS: HEPARIN SOD 5,000 UNIT/0.5 ML VIAL SQ SCH ×2 (09:18→21:16)
[2019-03-10] MEDS: SENNA 8.6 MG TAB PO SCH (09:18)
[2019-03-10] MEDS: POTASSIUM CHLORIDE PWD 20 MEQ PACK PO SCH (09:18)
[2019-03-10] MEDS: METOPROLOL TARTRATE 50 MG TAB PO SCH ×2 (09:18→21:16)
--- NOTE | 2019-03-10 14:59 | Hospitalist Progress Note ---
Date of Service March 10, 2019 Assessment & Plan (1) Acute respiratory failure with hypoxia: (2) Sepsis: (3) PNA (pneumonia): Met sepsis criteria with leukocytosis of 20.6K, tachypnea at 38 and tachycardic with HR of 120 on admission CXR with interval development of patchy infiltrates on left upper and midlung Influenza type A pcr positive Received Tamiflu from 03/04 and discontinued on 03/07 Panculture, Lactate, Procalcitonin all neg ID on board recommended to continue current abx with cefepime and Vanco On solumedrol daily, will transition to oral prednisone Continue neb treatment Palliative care on board Seems to improve slowly (4) Influenza A: Stopped Tamiflu, supportive measures Droplet precautions (5) COPD (chronic obstructive pulmonary disease): Continue albuterol, ipratropium inh, solu-medrol (6) Elevated troponin: Troponin elevation of 0.347, likely demand ischemia No chest pain or acute EKG changes (7) Hyponatremia: Chronic, history of SIADH Has been on fluid restriction of 1.5 L in the past Na 141 today Resolved (8) Chronic diastolic CHF (congestive heart failure): Continue monitoring volume status closely On IV lasix, will transition to oral Will transition to oral in am (9) GERD (gastroesophageal reflux disease): Continue PPI Hypokalemia K 4 Stable Monitor BMP DVT Ppx: SQ heparin Code status: DNR PCP: Monika Dispo: Will discharge once medically stable Subjective Pt was seen and examined Lying in bed with son at bedside Pt is more awake today and speech seems to improve She said that her breathing seems to improve today She feels weak Denies any chest pain, palpitation and fever Physical Exam Vital Signs (Past 24 Hours): Last Vital Signs Temp 36.7 C 03/10/19 07:11 Pulse 79 03/10/19 09:13 Resp 18 03/10/19 07:11 BP 138/66 03/10/19 09:13 Pulse Ox 92 03/10/19 07:11 Physical Exam: General- No acute distress Head- atraumatic Eyes- PERRL, EOMI, ENT- oropharynx clear Neck- supple, no JVD Lungs- coarse BS Heart- regular rhythm Abdomen- normal bowel sounds, soft, nontender Extremities- no calf tenderness Neuro- alert, PERRL, soft spoken Skin- warm & dry (1) GERD (gastroesophageal reflux disease) Esophagitis presence: esophagitis presence not specified Qualified Code(s): K21.9 - Gastro-esophageal reflux disease without esophagitis (2) PNA (pneumonia) Laterality: left Lung location: upper lobe of lung Pneumonia type: due to unspecified organism Qualified Code(s): J18.1 - Lobar pneumonia, unspecified organism
[2019-03-10] MEDS ORDERED: ACETAMINOPHEN SOL 650 MG/20.3 ML UDC PO PRN (15:00)
[2019-03-10] MEDS: FUROSEMIDE 20 MG TAB PO SCH (21:19)
[2019-03-11] MEDS: CEFEPIME 1,000 MG in SYRINGE 0 ML IV SCH ×2 (05:56→17:34)
[2019-03-11] MEDS: methylPREDNISolone 40 MG in SYRINGE 0 ML IV SCH (10:06)
[2019-03-11] MEDS: DOCUSATE SODIUM SYRUP 100 MG/10 ML UDC PO SCH ×2 (10:06→22:01)
[2019-03-11] MEDS: FUROSEMIDE 20 MG TAB PO SCH ×2 (10:06→22:00)
[2019-03-11] MEDS: LANSOPRAZOLE 30 MG SOLTAB PO SCH (10:07)
[2019-03-11] MEDS: METOPROLOL TARTRATE 50 MG TAB PO SCH ×2 (10:07→22:00)
[2019-03-11] MEDS: HEPARIN SOD 5,000 UNIT/0.5 ML VIAL SQ SCH ×2 (10:07→22:07)
[2019-03-11] MEDS: SENNA 8.6 MG TAB PO SCH (10:07)
[2019-03-11] MEDS: POTASSIUM CHLORIDE PWD 20 MEQ PACK PO SCH (10:07)
[2019-03-11] MEDS: VANCOMYCIN HCL 750 MG in SODIUM CHLORIDE 0.9% 250 ML IV SCH (15:22)
--- NOTE | 2019-03-11 20:01 | Hospitalist Progress Note ---
Date of Service March 11, 2019 Assessment & Plan (1) Acute respiratory failure with hypoxia: (2) Sepsis: (3) PNA (pneumonia): Met sepsis criteria with leukocytosis of 20.6K, tachypnea at 38 and tachycardic with HR of 120 on admission CXR with interval development of patchy infiltrates on left upper and midlung Influenza type A pcr positive Received Tamiflu from 03/04 and discontinued on 03/07 Panculture, Lactate, Procalcitonin all neg ID on board recommended to continue current abx with cefepime and [place] Will talk to ID about to d/c abx since pt has been on day 10 Transition solumedrol to oral prednisone in am Continue neb treatment Palliative care on board Seems to improve slowly (4) Influenza A: Stopped Tamiflu, supportive measures Droplet precautions (5) COPD (chronic obstructive pulmonary disease): Continue albuterol, ipratropium inh, solu-medrol (6) Elevated troponin: Troponin elevation of 0.347, likely demand ischemia No chest pain or acute EKG changes (7) Hyponatremia: Chronic, history of SIADH Has been on fluid restriction of 1.5 L in the past Na stable Resolved (8) Chronic diastolic CHF (congestive heart failure): Continue monitoring volume status closely Lasix changed to oral Will transition to oral in am (9) GERD (gastroesophageal reflux disease): Continue PPI Hypokalemia Stable Monitor BMP DVT Ppx: SQ heparin Code status: DNR PCP: Monika Dispo: Will discharge once medically stable Subjective Pt was seen and examined Lying in bed with no distress with son at bedside Therapist tried to help patient to stand or sit, she got very tired she is more alert today She said that she feels weak She ate half of her lunch as per son Denies any chest pain, palpitation and fever Physical Exam Vital Signs (Past 24 Hours): Last Vital Signs Temp 36.7 C 03/11/19 07:48 Pulse 87 03/11/19 07:48 Resp 20 03/11/19 07:48 BP 156/74 H 03/11/19 07:48 Pulse Ox 90 03/11/19 07:48 Physical Exam: General- No acute distress Head- atraumatic Eyes- PERRL, EOMI, ENT- oropharynx clear Neck- supple, no JVD Lungs- coarse BS Heart- regular rhythm Abdomen- normal bowel sounds, soft, nontender Extremities- no calf tenderness Neuro- alert, PERRL, soft spoken Skin- warm & dry (1) GERD (gastroesophageal reflux disease) Esophagitis presence: esophagitis presence not specified Qualified Code(s): K21.9 - Gastro-esophageal reflux disease without esophagitis (2) PNA (pneumonia) Laterality: left Lung location: upper lobe of lung Pneumonia type: due to unspecified organism Qualified Code(s): J18.1 - Lobar pneumonia, unspecified organism
[2019-03-12] MEDS: CEFEPIME 1,000 MG in SYRINGE 0 ML IV SCH ×2 (05:36→17:59)
[2019-03-12 08:43] LABS: BUN Creatinine Ratio 60.2 (10-20); Calcium 9.2 mg/dl (8.5-10.1); Est GFR (African American) 99.5; Est GFR (Non-African American) 85.8; Potassium 3.9 mmol/L (3.5-5.1)
[2019-03-12] MEDS: DOCUSATE SODIUM SYRUP 100 MG/10 ML UDC PO SCH ×2 (10:05→21:26)
[2019-03-12] MEDS: predniSONE 20 MG TAB PO SCH (10:05)
[2019-03-12] MEDS: POTASSIUM CHLORIDE PWD 20 MEQ PACK PO SCH (10:05)
[2019-03-12] MEDS: LANSOPRAZOLE 30 MG SOLTAB PO SCH (10:05)
[2019-03-12] MEDS: METOPROLOL TARTRATE 50 MG TAB PO SCH ×2 (10:06→21:42)
[2019-03-12] MEDS: HEPARIN SOD 5,000 UNIT/0.5 ML VIAL SQ SCH ×2 (10:06→21:47)
[2019-03-12] MEDS: SENNA 8.6 MG TAB PO SCH (10:06)
[2019-03-12] MEDS: FUROSEMIDE 20 MG TAB PO SCH ×2 (10:06→21:42)
[2019-03-12] MEDS: VANCOMYCIN HCL 750 MG in SODIUM CHLORIDE 0.9% 250 ML IV SCH (10:14)
--- NOTE | 2019-03-12 10:56 | XRay Report ---
SINGLE VIEW CHEST CLINICAL HISTORY: Cough. FINDINGS: An AP, portable, upright chest radiograph is compared to study dated 03/06/2019 and correlate d with chest CT dated 10/03/2018. The examination is degraded by portable technique and patient rotati on. The cardiomediastinal silhouette is unremarkable, noting atherosclerotic calcification of the th oracic aorta. Emphysema and chronic interstitial thickening are similar to previous. Apical scarring is observed. Small pleural effusions are suspected. There is no airspace consolidation typical for pn eumonia. Bibasilar scarring/atelectasis is identified. No pneumothorax is seen. The skeletal structur es are osteopenic. Advanced degenerative change and scoliosis are noted in the thoracic spine. Arthri tic change is seen in the shoulders, with joint bodies noted on the left. There are healed left-sided rib fractures. IMPRESSION: 1. Suspect small pleural effusions. 2. No airspace consolidation is seen typical for pneumonia. There is improved aeration at the right l sudeep base as compared to previous. Electronically signed by: Cordell Sofia M.D. 03/12/2019 10:55 AM
--- NOTE | 2019-03-12 18:08 | Hospitalist Progress Note ---
Date of Service March 12, 2019 Assessment & Plan (1) Acute respiratory failure with hypoxia: (2) Sepsis: (3) PNA (pneumonia): Met sepsis criteria with leukocytosis of 20.6K, tachypnea at 38 and tachycardic with HR of 120 on admission Repeat CXR today showed no airspace consolidation is seen typical for pneumonia. Influenza type A pcr positive Received Tamiflu from 03/04 and discontinued on 03/07 Panculture, Lactate, Procalcitonin all neg ID on board Will completed course cefepime and [place] tomorrow Will talk to ID about to d/c abx since pt has been on day 10 Transition solumedrol to oral prednisone, continue Continue neb treatment Palliative care on board Seems to improve slowly (4) Influenza A: Stopped Tamiflu, supportive measures Droplet precautions (5) COPD (chronic obstructive pulmonary disease): Continue albuterol, ipratropium inh, solu-medrol (6) Elevated troponin: Troponin elevation of 0.347, likely demand ischemia No chest pain or acute EKG changes (7) Hyponatremia: Chronic, history of SIADH Has been on fluid restriction of 1.5 L in the past Na stable Resolved (8) Chronic diastolic CHF (congestive heart failure): Continue monitoring volume status closely Lasix changed to oral Will transition to oral in am (9) GERD (gastroesophageal reflux disease): Continue PPI Hypokalemia Stable Monitor BMP DVT Ppx: SQ heparin Code status: DNR PCP: Monika Dispo: Possible discharge tomorrow Subjective Pt was seen and examined Lying in bed with no distress with son at bedside Pt said that she did not sleep well last night Son said that this morning pt had a coughing spell Denies any chest pain, palpitation and dizziness Physical Exam Vital Signs (Past 24 Hours): Last Vital Signs Temp 36.3 C L 03/12/19 15:20 Pulse 67 03/12/19 15:20 Resp 20 03/12/19 15:20 BP 124/67 03/12/19 15:20 Pulse Ox 97 03/12/19 15:20 Physical Exam: General- No acute distress Head- atraumatic Eyes- PERRL, EOMI, ENT- oropharynx clear Neck- supple, no JVD Lungs- Diminished BS Heart- regular rhythm Abdomen- normal bowel sounds, soft, nontender Extremities- no calf tenderness Neuro- alert, PERRL, soft spoken Skin- warm & dry (1) GERD (gastroesophageal reflux disease) Esophagitis presence: esophagitis presence not specified Qualified Code(s): K21.9 - Gastro-esophageal reflux disease without esophagitis (2) PNA (pneumonia) Laterality: left Lung location: upper lobe of lung Pneumonia type: due to unspecified organism Qualified Code(s): J18.1 - Lobar pneumonia, unspecified organism
[2019-03-13] MEDS: VANCOMYCIN HCL 750 MG in SODIUM CHLORIDE 0.9% 250 ML IV SCH (03:06)
[2019-03-13] MEDS: HEPARIN SOD 5,000 UNIT/0.5 ML VIAL SQ SCH ×2 (08:12→20:00)
[2019-03-13] MEDS: LANSOPRAZOLE 30 MG SOLTAB PO SCH (08:12)
[2019-03-13] MEDS: FLUTICASONE/VILANTEROL INHALER INH SCH (08:12)
[2019-03-13] MEDS: DOCUSATE SODIUM SYRUP 100 MG/10 ML UDC PO SCH ×2 (08:12→20:01)
[2019-03-13] MEDS: SENNA 8.6 MG TAB PO SCH (08:13)
[2019-03-13] MEDS: POTASSIUM CHLORIDE PWD 20 MEQ PACK PO SCH (08:13)
[2019-03-13] MEDS: FUROSEMIDE 20 MG TAB PO SCH ×2 (08:14→20:00)
[2019-03-13] MEDS: predniSONE 20 MG TAB PO SCH (08:14)
[2019-03-13] MEDS: METOPROLOL TARTRATE 50 MG TAB PO SCH ×2 (08:14→20:00)
--- NOTE | 2019-03-13 17:45 | Hospitalist Progress Note ---
Date of Service March 13, 2019 Assessment & Plan (1) Acute respiratory failure with hypoxia: (2) Sepsis: (3) PNA (pneumonia): Met sepsis criteria with leukocytosis of 20.6K, tachypnea at 38 and tachycardic with HR of 120 on admission Repeat CXR on 03/13 showed no airspace consolidation is seen typical for pneumonia. Influenza type A pcr positive Received Tamiflu from 03/04 and discontinued on 03/07 Panculture, Lactate, Procalcitonin all neg ID on board Completed course cefepime and Vanco Will taper oral prednisone to 20mg Continue neb treatment Palliative care on board Clinically stable (4) Influenza A: Stopped Tamiflu, supportive measures Droplet precautions (5) COPD (chronic obstructive pulmonary disease): Continue albuterol, ipratropium inh, solu-medrol (6) Elevated troponin: Troponin elevation of 0.347, likely demand ischemia No chest pain or acute EKG changes (7) Hyponatremia: Chronic, history of SIADH Has been on fluid restriction of 1.5 L in the past Na stable Resolved (8) Chronic diastolic CHF (congestive heart failure): Continue monitoring volume status closely Continue Lasix oral Check BMP in 1 week (9) GERD (gastroesophageal reflux disease): Continue PPI Hypokalemia Stable Monitor BMP DVT Ppx: SQ heparin Code status: DNR PCP: Monika Dispo: Waiting for placement to discharge Subjective Pt was seen and examined Lying in bed with no distress Pt is doing much better She is more awake today Son said that she said that she would like to try to walk today She said that she ate today Denies any chest pain, palpitation and SOB Physical Exam Vital Signs (Past 24 Hours): Last Vital Signs Temp 36.3 C L 03/13/19 17:14 Pulse 100 H 03/13/19 17:14 Resp 16 03/13/19 17:14 BP 123/67 03/13/19 17:14 Pulse Ox 95 03/13/19 17:14 Physical Exam: General- No acute distress Head- atraumatic Eyes- PERRL, EOMI, ENT- oropharynx clear Neck- supple, no JVD Lungs- Diminished BS Heart- regular rhythm Abdomen- normal bowel sounds, soft, nontender Extremities- no calf tenderness Neuro- alert, PERRL, soft spoken Skin- warm & dry (1) GERD (gastroesophageal reflux disease) Esophagitis presence: esophagitis presence not specified Qualified Code(s): K21.9 - Gastro-esophageal reflux disease without esophagitis (2) PNA (pneumonia) Laterality: left Lung location: upper lobe of lung Pneumonia type: due to unspecified organism Qualified Code(s): J18.1 - Lobar pneumonia, unspecified organism
[2019-03-14] MEDS: HEPARIN SOD 5,000 UNIT/0.5 ML VIAL SQ SCH ×2 (09:19→20:42)
[2019-03-14] MEDS: DOCUSATE SODIUM SYRUP 100 MG/10 ML UDC PO SCH ×2 (09:21→20:43)
[2019-03-14] MEDS: SENNA 8.6 MG TAB PO SCH (09:21)
[2019-03-14] MEDS: FLUTICASONE/VILANTEROL INHALER INH SCH (09:30)
[2019-03-14] MEDS: POTASSIUM CHLORIDE PWD 20 MEQ PACK PO SCH (09:30)
[2019-03-14] MEDS: METOPROLOL TARTRATE 50 MG TAB PO SCH ×2 (09:31→20:42)
[2019-03-14] MEDS: FUROSEMIDE 20 MG TAB PO SCH ×2 (09:31→20:42)
[2019-03-14] MEDS: predniSONE 20 MG TAB PO SCH (09:32)
[2019-03-14] MEDS: LANSOPRAZOLE 30 MG SOLTAB PO SCH (09:33)
--- NOTE | 2019-03-14 10:24 | Palliative Care Progress Note ---
Date of Service March 14, 2019 Assessment & Plan (1) Palliative care encounter: -88 year old female from [facility] with PMH chronic diastolic heart failure, COPD and others. Here with acute on chronic respiratory failure 2/2 HAP and Influenza A. Has continued to decline during hospitalization, but is now showing some signs of cognitive improvement. -Patient more alert during my visit today. Sat for quite a while with patient, her son Pietro. Patient was able to answer questions appropriately and followed commands appropriately. -Discussed with patient's son: despite minor waxing and waning of mental status and alertness, patient's overall condition may show some improvement short term, but unlikely suit attendant. -We discussed senior living plans and Pietro mentioned that he eventually would like her to return to [facility] should she improve to baseline. I do not think this will be feasible unless Hospice is accompanied, but again stressed to see how things go while she is at SNF and gentle rehab. Upon my assessment today, I would feel comfortable with her pursuing gentle rehabilitation if she continues to improve. She expressed wanting to get out of bed today, will defer to PT/OT notes at this time which suggest that she would benefit from PT/OT on discharge. -Prior to D/C a POLST form should be completed. Pietro expressed that he would like Chip to be involved with the completion of the form. I provided him with our contact and advised him to call or text the palliative number when a good time would be. He stated that this would need to take place tomorrow as it is tax day today and they are struggling to submit them. -The patient denies pain and states she 'feels good' -Will continue to follow closely. -Palliative Performance Scale: 40% (2) Acute exacerbation of chronic obstructive airways disease: (3) Influenza A: (4) PNA (pneumonia): Subjective Patient sleeping when I entered the room, but is fully awake and able to speak in compete sentences and is awake alert and oriented. Patient continues to be weak, but is able to follow full commands. Pt son, Pietro at the bedside. See A&P. Physical Exam Vital Signs (Past 24 Hours): Last Vital Signs Temp 36.8 C 03/14/19 07:29 Pulse 67 03/14/19 07:29 Resp 18 03/14/19 07:29 BP 123/74 03/14/19 07:29 Pulse Ox 100 04/15/19 07:29 Constitutional: + ill appearing, + thin and + frail appearing; not in distress Eyes: PERRL, conjunctivae normal, anicteric sclerae ENMT: external ear and nose normal, oropharynx normal Neck: trachea midline, no thyromegaly Respiratory: + abnormal respiratory pattern (shallow breathing) Auscultation: + diminished lung sounds and + rhonchi Cardiovascular: Heart Sounds: normal S1 and normal S2; + abnormal physiologic split S2, no murmur and no cardiac rub Vessels: normal peripheral pulses and dorsalis pedis pulses present Extremities: no pedal edema and no edema Gastrointestinal (Abdomen): normal bowel sounds, soft, nontender, no hepatosplenomegaly Skin: no rashes, warm and dry normal turgor Psychiatric: Orientation: + not alert and + not oriented x 3 Supervising Physician Co-Signing Physician Notes Patient seen and examined, no family at bedside. Patient has markedly improved compared to prior exams-patient awake and alert-no acute distress PE: NAD HEENT: EOMI, hearing within normal limits Respiratory: Mild dyspnea at rest, slight increase with speech, diminished breath sounds bilaterally CV: Regular rate, no edema Abdomen: Soft, nontender Neuro: Alert Agree with above note, assessment and plan as per MIRZA Martinez P-we will continue to follow and assist with medical decision making. Goal is to have rehab at [facility]-will meet with sons to complete POLST form Time Spent Midlevel Total time spent 35 minutes with > 50% of that time assessing the patient and discussing goals of care with patient and son, Pietro. (1) PNA (pneumonia) Laterality: left Lung location: upper lobe of lung Pneumonia type: due to unspecified organism Qualified Code(s): J18.1 - Lobar pneumonia, unspecified organism
--- NOTE | 2019-03-14 21:12 | Hospitalist Progress Note ---
Date of Service March 14, 2019 Assessment & Plan (1) Acute respiratory failure with hypoxia: (2) Sepsis: (3) PNA (pneumonia): Met sepsis criteria with leukocytosis of 20.6K, tachypnea at 38 and tachycardic with HR of 120 on admission Repeat CXR on 03/13 showed no airspace consolidation is seen typical for pneumonia. Influenza type A pcr positive Received Tamiflu from 03/04 and discontinued on 03/07 Panculture, Lactate, Procalcitonin all neg ID on board Completed course cefepime and Vanco Continue prednisone to 20mg Continue neb treatment Palliative care on board Clinically stable (4) Influenza A: Stopped Tamiflu, supportive measures Droplet precautions (5) COPD (chronic obstructive pulmonary disease): Continue albuterol, ipratropium inh, solu-medrol (6) Elevated troponin: Troponin elevation of 0.347, likely demand ischemia No chest pain or acute EKG changes (7) Hyponatremia: Chronic, history of SIADH Has been on fluid restriction of 1.5 L in the past Na stable Resolved (8) Chronic diastolic CHF (congestive heart failure): Continue monitoring volume status closely Continue Lasix oral Check BMP in 1 week (9) GERD (gastroesophageal reflux disease): Continue PPI Hypokalemia Stable Monitor BMP DVT Ppx: SQ heparin Code status: DNR PCP: Monika Dispo: Waiting for placement to discharge Subjective Pt was seen and examined Lying in bed with no distress Saturated well on RA Feels a little stronger today Denies any chest pain, palpitation and SOB Physical Exam Vital Signs (Past 24 Hours): Last Vital Signs Temp 36.5 C 03/14/19 15:31 Pulse 63 03/14/19 15:31 Resp 19 03/14/19 15:31 BP 129/61 03/14/19 15:31 Pulse Ox 95 03/14/19 15:31 Physical Exam: General- No acute distress Head- atraumatic Eyes- PERRL, EOMI, ENT- oropharynx clear Neck- supple, no JVD Lungs- Diminished BS Heart- regular rhythm Abdomen- normal bowel sounds, soft, nontender Extremities- no calf tenderness Neuro- alert, PERRL, soft spoken Skin- warm & dry (1) GERD (gastroesophageal reflux disease) Esophagitis presence: esophagitis presence not specified Qualified Code(s): K21.9 - Gastro-esophageal reflux disease without esophagitis (2) PNA (pneumonia) Laterality: left Lung location: upper lobe of lung Pneumonia type: due to unspecified organism Qualified Code(s): J18.1 - Lobar pneumonia, unspecified organism
[2019-03-14] MEDS ORDERED: BENZONATATE 100 MG CAPSULE PO PRN (21:45)
[2019-03-14] MEDS ORDERED: GUAIFENESIN/CODEINE 100MG/10MG 5ML UDC PO PRN (21:45)
[2019-03-15] MEDS: FLUTICASONE/VILANTEROL INHALER INH SCH (09:01)
[2019-03-15] MEDS: DOCUSATE SODIUM SYRUP 100 MG/10 ML UDC PO SCH ×2 (09:02→20:40)
[2019-03-15] MEDS: FUROSEMIDE 20 MG TAB PO SCH ×2 (09:02→20:40)
[2019-03-15] MEDS: METOPROLOL TARTRATE 50 MG TAB PO SCH ×2 (09:02→20:40)
[2019-03-15] MEDS: LANSOPRAZOLE 30 MG SOLTAB PO SCH (09:02)
[2019-03-15] MEDS: SENNA 8.6 MG TAB PO SCH (09:03)
[2019-03-15] MEDS: predniSONE 20 MG TAB PO SCH (09:03)
[2019-03-15] MEDS: POTASSIUM CHLORIDE PWD 20 MEQ PACK PO SCH (09:04)
[2019-03-15] MEDS: HEPARIN SOD 5,000 UNIT/0.5 ML VIAL SQ SCH ×2 (09:06→20:24)
--- NOTE | 2019-03-15 20:36 | Hospitalist Progress Note ---
Date of Service March 15, 2019 Assessment & Plan (1) Acute respiratory failure with hypoxia: (2) Sepsis: (3) PNA (pneumonia): Met sepsis criteria with leukocytosis of 20.6K, tachypnea at 38 and tachycardic with HR of 120 on admission Repeat CXR on 03/13 showed no airspace consolidation is seen typical for pneumonia. Influenza type A pcr positive Received Tamiflu from 03/04 and discontinued on 03/07 Panculture, Lactate, Procalcitonin all neg ID on board Completed course cefepime and Vanco Continue prednisone to 20mg Continue neb treatment Overnight nocturnal oxygen done, pt required oxygen at night Palliative care on board Clinically stable (4) Influenza A: Stopped Tamiflu, supportive measures Droplet precautions (5) COPD (chronic obstructive pulmonary disease): Continue albuterol, ipratropium inh, solu-medrol Overnight nocturnal oxygen done, pt required oxygen at night Continue oxygen at night during sleep (6) Elevated troponin: Troponin elevation of 0.347, likely demand ischemia No chest pain or acute EKG changes (7) Hyponatremia: Chronic, history of SIADH Has been on fluid restriction of 1.5 L in the past Na stable Resolved (8) Chronic diastolic CHF (congestive heart failure): Continue monitoring volume status closely Continue Lasix oral Monitor BMP (9) GERD (gastroesophageal reflux disease): Continue PPI Hypokalemia Stable Monitor BMP DVT Ppx: SQ heparin Code status: DNR PCP: Monika Dispo: Waiting for placement to discharge Subjective Pt was seen and examined. Lying in bed with no distress. Pt said that she feels much better Son said that she got tired easily when therapist tried to make her seat at the edge of the bed. Denies any chest pain, palpitation and SOB. Physical Exam Vital Signs (Past 24 Hours): Last Vital Signs Temp 36.3 C L 03/15/19 15:20 Pulse 61 03/15/19 15:20 Resp 20 03/15/19 15:20 BP 107/60 03/15/19 15:20 Pulse Ox 93 03/15/19 15:20 Physical Exam: General- No acute distress Head- atraumatic Eyes- PERRL, EOMI, ENT- oropharynx clear Neck- supple, no JVD Lungs- Diminished BS Heart- regular rhythm Abdomen- normal bowel sounds, soft, nontender Extremities- no calf tenderness Neuro- alert, PERRL, soft spoken Skin- warm & dry (1) GERD (gastroesophageal reflux disease) Esophagitis presence: esophagitis presence not specified Qualified Code(s): K21.9 - Gastro-esophageal reflux disease without esophagitis (2) PNA (pneumonia) Laterality: left Lung location: upper lobe of lung Pneumonia type: due to unspecified organism Qualified Code(s): J18.1 - Lobar pneumonia, unspecified organism
[2019-03-16 07:16] LABS: BUN Creatinine Ratio 46.9 (10-20); Calcium 8.8 mg/dl (8.5-10.1); Creatinine Clr Calc Pharmacy 61.9 ml/min; Est GFR (African American) 105.3; Est GFR (Non-African American) 90.9; Potassium 4.6 mmol/L (3.5-5.1)
[2019-03-16] MEDS: LANSOPRAZOLE 30 MG SOLTAB PO SCH (09:21)
[2019-03-16] MEDS: DOCUSATE SODIUM SYRUP 100 MG/10 ML UDC PO SCH ×2 (09:21→09:30)
[2019-03-16] MEDS: HEPARIN SOD 5,000 UNIT/0.5 ML VIAL SQ SCH (09:22)
[2019-03-16] MEDS: FUROSEMIDE 20 MG TAB PO SCH (09:22)
[2019-03-16] MEDS: FLUTICASONE/VILANTEROL INHALER INH SCH (09:22)
[2019-03-16] MEDS: SENNA 8.6 MG TAB PO SCH (09:22)
[2019-03-16] MEDS: predniSONE 20 MG TAB PO SCH (09:22)
[2019-03-16] MEDS: METOPROLOL TARTRATE 50 MG TAB PO SCH (09:23)
[2019-03-16] MEDS: POTASSIUM CHLORIDE PWD 20 MEQ PACK PO SCH (09:23)
[2019-03-16] MEDS ORDERED: DOCUSATE SODIUM 100 MG CAP PO SCH (10:00)
[2019-03-16] MEDS ORDERED: ALENDRONATE SODIUM 70 MG TAB PO SCH (11:30)
--- NOTE | 2019-03-16 12:38 | Hospitalist Progress Note ---
Date of Service March 16, 2019 Assessment & Plan (1) Acute respiratory failure with hypoxia: (2) Sepsis: (3) PNA (pneumonia): Met sepsis criteria with leukocytosis of 20.6K, tachypnea at 38 and tachycardic with HR of 120 on admission Repeat CXR on 03/13 showed no airspace consolidation is seen typical for pneumonia. Influenza type A pcr positive Received Tamiflu from 03/04 and discontinued on 03/07 Panculture, Lactate, Procalcitonin all neg ID on board Completed course cefepime and Vanco Continue prednisone to 20mg for 2 more days Continue neb treatment Overnight nocturnal oxygen done, pt required oxygen at night Continue oxygen supplement at night Palliative care on board Clinically stable (4) Influenza A: Stopped Tamiflu, supportive measures Droplet precautions (5) COPD (chronic obstructive pulmonary disease): Continue albuterol, ipratropium inh, solu-medrol Overnight nocturnal oxygen done, pt required oxygen at night Continue oxygen at night during sleep (6) Elevated troponin: Troponin elevation of 0.347, likely demand ischemia No chest pain or acute EKG changes (7) Hyponatremia: Chronic, history of SIADH Has been on fluid restriction of 1.5 L in the past Na 133 today Resolved (8) Chronic diastolic CHF (congestive heart failure): Continue monitoring volume status closely Continue Lasix oral Check BMP in 1 week (9) GERD (gastroesophageal reflux disease): Continue PPI Pressure Ulcer Wound care on board Apply optifoam dressing. Change every other day and as needed Sacrum apply aloe [place] q2hr with repositioning Hypokalemia Stable Check BMP in 1 week DVT Ppx: SQ heparin Code status: DNR PCP: Monika Dispo: Continue PT/OT Fall precaution Discharge today to [facility] Subjective Pt was seen and examined Lying in bed with no distress Pt said that she feels ok She said that she slept well last night Her appetite is much better Denies any chest pain, palpitation, dizziness and SOB Physical Exam Physical Exam: General- No acute distress Head- atraumatic Eyes- PERRL, EOMI, ENT- oropharynx clear Neck- supple, no JVD Lungs- Diminished BS Heart- regular rhythm Abdomen- normal bowel sounds, soft, nontender Extremities- no calf tenderness Neuro- alert, PERRL, soft spoken Skin- warm & dry Results & Data Vital Signs (Past 12 Hours) Vital Signs Temp Pulse Resp BP Pulse Ox 03/16/19 07:17 36.6 C 64 16 145/78 H 100 (1) GERD (gastroesophageal reflux disease) Esophagitis presence: esophagitis presence not specified Qualified Code(s): K21.9 - Gastro-esophageal reflux disease without esophagitis (2) PNA (pneumonia) Laterality: left Lung location: upper lobe of lung Pneumonia type: due to unspecified organism Qualified Code(s): J18.1 - Lobar pneumonia, unspecified organism
--- NOTE | 2019-03-16 16:06 | Palliative Care Progress Note ---
Date of Service March 16, 2019 Assessment & Plan (1) Palliative care encounter: -Met with patient's son, Vinicio, to complete POLST form. -POLST form completed as follows: DNR, limited additional interventions (BIPAP OKAY), abx if life can be prolonged, trial period of artificial hydration/nutr ition. -Patient's other son, Pietro, requested to have private duty caregiver, home health, and hospice agency lists emailed to him-- which I did. -Plan is for patient to go to [facility] for rehab. -Patient is much improved. Pneumonia and influenza seem to be resolved. -Please contact palliative care with any further needs. (2) Acute respiratory failure with hypoxia: (3) Influenza A: (4) PNA (pneumonia): (5) Sepsis: Subjective Patient much improved now. Acute issues seemingly resolved. Stable for discharge per hospitalist. Patient's son requested to meet to complete POLST form. Review of Systems Review of Systems: Patient denies c/o pain, CP, SOB, or other discomforts. Physical Exam Constitutional: + thin and + frail appearing ENMT: external ear and nose normal, oropharynx normal Respiratory: Auscultation: + diminished lung sounds Cardiovascular: Heart Sounds: no murmur Extremities: no edema Neurologic: moves all extremities and awake Psychiatric: Orientation: oriented to person; + not oriented to time Results & Data Vital Signs (Past 12 Hours) Vital Signs Temp Pulse Resp BP Pulse Ox 03/16/19 13:00 36.6 C 64 16 145/78 H 100 03/16/19 07:17 36.6 C 64 16 145/78 H 100 Time Spent Midlevel 15 minutes with >50% of time spent at bedside and on nursing unit with patient's son Vinicio completing POLST and discussing POC. (1) PNA (pneumonia) Laterality: left Lung location: upper lobe of lung Pneumonia type: due to unspecified organism Qualified Code(s): J18.1 - Lobar pneumonia, unspecified organism
--- NOTE | 2019-03-20 20:37 | Discharge Summary ---
Date of Service March 16, 2019 Admission HPI Per Admitting Provider This is an 88-year-old female resident of [facility] with a PMH of COPD, diastolic HF, chronic hyponatremia and GERD who presents with shortness of breath x 4 days. Patient is on BiPAP and only able to respond with yes and no, so history is primarily obtained by staff at [facility]. Patient became short of breath on Thursday, with a low-grade fever and dry cough. Complained of progressive weakness and remained short of breath despite increased nebulizer treatments. Was evaluated in the ED on Thursday but was not short of breath at the time, and was discharged back to [facility]. Symptoms continued to worsen over the past few days, so patient was sent in today for further evaluation. In the ED, patient found to be hypoxic at 85%, tachypneic at 38 and tachycardic with HR of 120. Improved on BiPAP. Feels short of breath and weak with dry cough. Denies fever, chills, confusion, lightheadedness, chest pain, nausea, vomiting, abdominal pain, dysuria, diarrhea or constipation. CXR with interval development of patchy infiltrate in left upper and mid lung. Flu PCR positive for influenza A. Initial troponin positive at 0.347. Lactate and pro-calcitonin negative. Discussed CODE STATUS with patient and son, and patient would like to remain a full code. Is agreeable to intubation if deemed necessary. Discussed with powder hand who will monitor patient in the ICU. Admission Exam Per Admitting Provider General Appearance: WD/WN, frail, elderly, in acute respiratory distress with BiPAP, able to answer yes/no questions Head: normocephalic, atraumatic Eyes: normal inspection, PERRL, EOMI ENT: hearing grossly normal, dry mucous membranes, wearing BiPAP Neck: supple, no JVD, no adenopathy Respiratory/Chest: Poor air movement bilaterally, with scattered rhonchi. No wheezes or rales appreciated. + Accessory muscle use Cardiovascular: Tachycardic, no murmur, normal peripheral pulses Abdomen/GI: normal bowel sounds, soft, non-tender to palpation Extremities/Musculoskelatal: normal inspection, no calf tenderness, normal capillary refill, no pedal edema Neurologic/Psych: alert, normal mood/affect, oriented x 3 Skin: normal color, warm/dry Principal Diagnosis Acute respiratory failure with hypoxia Sepsis Pneumonia Influenza A Elevated Troponin Chronic diastolic CHF Discharge Exam General- No acute distress Head- atraumatic Eyes- PERRL, EOMI, ENT- oropharynx clear Neck- supple, no JVD Lungs- Diminished BS Heart- regular rhythm Abdomen- normal bowel sounds, soft, nontender Extremities- no calf tenderness Neuro- alert, PERRL, soft spoken Skin- warm & dry Discharge Data Allergies Allergy/AdvReac Type Severity Reaction Status Date / Time cat dander Allergy Intermediate ITCHY, RED Verified 03/02/19 12:21 RASH, CONGESTION dog dander Allergy Intermediate ITCHY, RED Verified 03/02/19 12:21 RASH, CONGESTION horse dander Allergy Intermediate ITCHY, RED Verified 03/02/19 12:21 RASH, CONGESTION rabbit dander Allergy Intermediate ITCHY, RED Verified 03/02/19 12:21 RASH, CONGESTION Consultations 03/02/19 14:14 ED Decision to Admit Stat 03/02/19 17:17 Consult Case Management - Discharge Planning Routine Consult Case Management - Discharge Planning Routine Consult Flame Hardening Machine Setter Routine 03/06/19 07:43 Consult Infectious Diseases Routine 03/06/19 07:44 Consult Palliative Care Routine Ordered Studies 03/06/19 07:24 CT head/brain wo con Urgent XR chest 1V portable CLINICAL HISTORY: 88 years-old Female presenting with sob. TECHNIQUE: Portable upright AP view of the chest was obtained. COMPARISON: 02/26/2019. FINDINGS: The patient is rotated. Atherosclerosis of the aortic arch. Cardiac silhouette normal in size. Heterogeneity of lung parenchyma with patchy opacities in the left upper and mid lung.e no large effusion or pneumothorax. Scoliotic curvature and extensive degenerative changes of the spine. Degenerative changes of bilateral glenohumeral joints. Suspected underlying osteopenia. IMPRESSION: 1. Interval development of patchy infiltrates in the left upper and mid lung concerning for pneumonia. This is superimposed on chronic lung disease. Electronically signed by: Guzman Aponte M.D. 03/02/2019 1:28 PM Dictated: 03/02/19 1326 Transcribed: 03/02/19 1326 XR chest 1V portable CLINICAL HISTORY: 88 years-old Female presenting with congestion. TECHNIQUE: Portable upright AP view of the chest was obtained. COMPARISON: 03/02/2019. FINDINGS: The patient is GEORGIAN rotated. Atherosclerosis of the aortic arch and tortuosity of the descending thoracic aorta. Cardiac silhouette normal in size allowing for rotation. Significant heterogeneity of lung parenchyma, and appearance which may in part be due to overlapping costochondral calcification. The previously suggested nodular opacities in the left mid and upper lung remain present. These do not definitively localized to a rib shadow. No pleural effusion or pneumothorax. Suspected underlying osteopenia. Upper abdomen normal. IMPRESSION: 1. Left mid and upper lung nodular opacities. The etiology of this is unknown. An infectious, inflammatory, or neoplastic causes not excluded. Electronically signed by: Guzman Aponte M.D. 03/03/2019 7:56 AM Dictated: 03/03/19 0754 Transcribed: 03/03/19 0754 XR chest 1V portable HISTORY: Abnormal chest x-ray. Upper lobe nodular densities. COMPARISON: Chest 03/03/2019. FINDINGS: No change in the left lung nodular densities. The heart is normal in size. No pneumothorax. Emphysema. There are new right basilar densities. The patient is slightly rotated on this study. No evidence for pulmonary edema. IMPRESSION: 1. No change in the left lung nodular densities. 2. Progressive opacification within the right lung base. This may represent atelectasis or pneumonia could be secondary to aspiration. Electronically signed by: Christopher Castro M.D. 03/04/2019 7:42 AM Dictated: 03/04/19 0740 Transcribed: 03/04/19 0740 XR chest 1V portable CLINICAL HISTORY: 88 years-old Female presenting with Cough, Desat. TECHNIQUE: Portable upright AP view of the chest was obtained. COMPARISON: 03/04/2019. FINDINGS: The patient is GEORGIAN rotated. Atherosclerosis of the aortic arch. Cardiac silh ouette normal in size. Extensive heterogeneity of lung parenchyma with prominent reticular opacities, left greater than right. These may be slightly worsened from prior exam. Persistent right pleural effusion suspected. No large pneumothorax. Osteopenia. Scoliosis and degenerative changes of the spine. Old left anterolateral rib fractures suspected. Upper abdomen normal. IMPRESSION: 1. Apparent slight interval worsening of diffuse reticular opacities, left greater than right. This may indicate congestive change or a developing infiltrate. Attention on follow-up. 2. Right pleural effusion versus elevation right hemidiaphragm unchanged. Electronically signed by: Guzman Aponte M.D. 03/06/2019 8:58 AM Dictated: 03/06/19 0856 Transcribed: 03/06/[address] head/brain wo con CLINICAL HISTORY: 88 years-old Female presenting with Altered mental status, weakness, confusion. TECHNIQUE: Multidetector CT imaging of the head was performed without the use of intravenous contrast. IV contrast: None. One or more dose lowering techniques were used consistent with the principles of ALARA (as low as reasonably achievable), including automatic exposure control, mA or kV adjustment to i ndividual patient size, and/or use of iterative reconstruction. COMPARISON: 12/09/2018. CT DOSE (mGy.cm): The estimated cumulative dose is 1074.96 mGy.cm. FINDINGS: Batch Mixer topogram: Unremarkable. Proportional ventricular and sulcal prominence, likely age-related parenchymal volume loss. No hemorrhage. Periventricular and subcortical white matter hypoattenuation, nonspecific but likely indicative of chronic small vessel ischemic change. Old lacunar infarcts in the basal ganglia. A left choroidal fissure cyst noted. No acute territorial infarct. No mass effect or midline shift. No extra-axial fluid collection. Paranasal sinuses and mastoid air cells clear. Calvarium intact. Intracranial atherosclerosis noted. IMPRESSION: 1. Chronic small vessel ischemic change. No acute intracranial abnormality. Electronically signed by: Guzman Aponte M.D. 03/06/2019 9:25 AM Dictated: 03/06/1917 Transcribed: 03/06/19916 SINGLE VIEW CHEST CLINICAL HISTORY: Cough. FINDINGS: An AP, portable, upright chest radiograph is compared to study dated 03/06/2019 and correlated with chest CT dated 10/03/2018. The examination is degraded by portable technique and patient rotation. The cardiomediastinal silhouette is unremarkable, noting atherosclerotic calcification of the thoracic aorta. Emphysema and chronic interstitial thickening are similar to previous. Apical scarring is observed. Small pleural effusions are suspected. There is no airspace consolidation typical for pneumonia. Bibasilar scarring/atelectasis is identified. No pneumothorax is seen. The skeletal structures are osteopenic. Advanced degenerative change and scoliosis are noted in the thoracic spine. Arthritic change is seen in the shoulders, with joint bodies noted on the left. There are healed left-sided rib fractures. IMPRESSION: 1. Suspect small pleural effusions. 2. No airspace consolidation is seen typical for pneumonia. There is improved aeration at the right lung base as compared to previous. Electronically signed by: Cordell Sofia M.D. 03/12/2019 10:55 AM Dictated: 03/12/19 1052 Transcribed: 03/12/19 1052 Hospital Course (1) Acute respiratory failure with hypoxia: This is an 88-year-old female resident of [facility] with a PMH of COPD, diastolic HF, chronic hyponatremia and GERD who presents with shortness of breath x 4 days and was found to have acute respiratory failure with hypoxia in the setting of possible hospital-acquired pneumonia, influenza A and COPD exacerbation. -Admitted to ICU on 03/02, Off BiPAP 03/03, Floor 03/03, declining daily, Now DNR (2) Sepsis: Treating for HCAP, Vanco, ICU team following, DNR, d/w wendy Mooney and [facility] Delerium also present (3) PNA (pneumonia): Met sepsis criteria with leukocytosis of 20.6K, tachypnea at 38 and tachycardic with HR of 120 on admission Repeat CXR on 03/13 showed no airspace consolidation is seen typical for pneumonia. Influenza type A pcr positive Received Tamiflu from 03/04 and discontinued on 03/07 Panculture, Lactate, Procalcitonin all neg ID on board Completed course cefepime and Vanco Continue prednisone to 20mg for 2 more days Continue neb treatment Overnight nocturnal oxygen done, pt required oxygen at night Continue oxygen supplement at night Palliative care on board Clinically stable (4) Influenza A: Stopped Tamiflu, supportive measures Droplet precautions (5) COPD (chronic obstructive pulmonary disease): Continue albuterol, ipratropium inh, solu-medrol Overnight nocturnal oxygen done, pt required oxygen at night Continue oxygen at night during sleep (6) Elevated troponin: Troponin elevation of 0.347, likely demand ischemia No chest pain or acute EKG changes (7) Hyponatremia: Chronic, history of SIADH Has been on fluid restriction of 1.5 L in the past Na 133 today Resolved (8) Chronic diastolic CHF (congestive heart failure): Continue monitoring volume status closely Continue Lasix oral Check BMP in 1 week (9) GERD (gastroesophageal reflux disease): Continue PPI Pressure Ulcer Wound care on board Apply optifoam dressing. Change every other day and as needed Sacrum apply aloe vista q2hr with repositioning Hypokalemia Stable Check BMP in 1 week DVT Ppx: SQ heparin Code status: DNR PCP: Monika Dispo: Continue PT/OT Fall precaution Discharge today to [facility] Total Time Total Time Spent Total Time Spent (In Minutes): 35 minutes Total Time Includes: Examination of the Patient, Discharge Planning, Medication Reconciliation, Communication With Other Providers and Other Discharge Plan Discharge Items Patient Disposition: Transfer [facility] Living Fac Reason For Visit: RESPIRATORY DISTRESS,HYPOXIA Discharge Diagnosis: Acute respiratory failure with hypoxia Sepsis Pneumonia Influenza A Elevated Troponin Chronic diastolic CHF Condition: Critical Discharge Goals: Decrease discomfort, Improve disease control, Improve function and Increase independence Activity: Resume your previous activity Activity Comment: as tolerated Non-emergency contact: Primary Care Provider Call non-emergency contact if: you have any medication questions Follow-up/Referrals: Francisco Javier Frank [Primary Care Provider] - Diet: Heart Healthy Fluids: 1500ml (6 cups) Addtl Provider Instructions: Follow up with your primary care provider once discharge from [facility] Continue physical therapy and occupational therapy Continue oxygen supplement at night (During sleep) with 1 -2 L NC to keep oxygen saturation above 93% Fall precaution Check BMP in 1 week to monitor electrolytes and kidney function Continue fluid restriction to 1.5L daily Continue wound care. Apply optifoam dressing. Change every other day and as needed Sacrum apply aloe vista q2hr with repositioning Speech therapist recommended Moist soft, bite-sized diet (moist dental soft) Aspiration precaution Prescriptions: New potassium chloride 20 mEq Packet 20 meq PO QAM 30 Days Qty: 30 RF: 0 metoprolol tartrate 50 mg Tablet 50 mg PO BID 30 Days Qty: 60 RF: 0 furosemide 20 mg Tablet 20 mg PO BID 30 Days Qty: 60 RF: 0 prednisone 10 mg tablet 10 mg PO UD Qty: 6 RF: 0 Continued cholecalciferol (vitamin D3) [Vitamin D3] 1,000 unit Capsule 2,000 unit PO QAM Qty: 0 RF: 0 melatonin 1 mg Tablet 1 mg PO HS 30 Days Qty: 30 RF: 2 multivitamin Tablet 1 tab PO QAM RF: 0 albuterol sulfate [ProAir HFA] 90 mcg/actuation Hfa Aerosol Inhaler 2 puff INHALATION Q4 PRN (Reason: Shortness Of Breath Or Wheezing) RF: 0 Breo Ellipta 100-25 mcg/dose Blister With Device 1 inh INHALATION QAM RF: 0 acetaminophen [Tylenol] 325 mg Tablet 650 mg PO Q4H PRN (Reason: pain/fever) RF: 0 ipratropium-albuterol 0.5 mg-3 mg(2.5 mg base)/3 mL Solution For Nebulization 3 ml INHALATION Q4H PRN (Reason: Shortness Of Breath Or Wheezing) RF: 0 pantoprazole 40 mg tablet,delayed release (DR/EC) 40 mg PO QAM RF: 0 alendronate 70 mg tablet 70 mg PO WK RF: 0 guaifenesin [Mucinex] 600 mg tablet extended release 12hr 600 mg PO Q12H PRN (Reason: congestion) Qty: 30 RF: 0 Stand-Alone Forms: [facility] Discharge Orders: Discharge Order (Routine); Ordered 03/16/19 Ordered By: Diamante Marx Skilled Items Patient informed of condition?: Yes DNR: Yes Discharge Level of Care: Skilled Communicable Disease: No Discharge Prognosis: Stable Admission Data Admit Date/Time: 03/02/19 15:02 Attending Provider: Diamante Marx Admit Provider: Tomas Rico Primary Care Provider: Francisco Javier Frank Other Providers: Tomas Rico ; Francisco Javier Wills ; Harsh Adams ; Kyara Gleason ; Eladio Burdick Service: Medical Other Interventions: Discharge Summary Assessment (RN) Last Done: 03/16/19 13:00 DC Date/Time DO NOT enter until pt leaves facility: 03/16/19 17:02
== END 2019-03-16 17:02 | DRG 871 ==
LOC: ED 11:41 → 1E 15:02 → SUATTDRO 15:02 → 1E 15:37 → 2W 03-04 08:46 → 4E 03-13 09:27